=== PATIENT | female | born 1945 | race Hispanic/Latino ===

== ENCOUNTER 2018-02-18 05:08 | Observation (INO) | payer MEDICARE ==
[2018-02-18 06:09] LABS: Absolute Lymphocytes (CBC) 1.8 K/uL (0.7-4.9); Absolute Monocytes 0.5 K/uL (0.1-1.3); Absolute Neutrophil 3.6 K/uL (1.8-8.0); Basophils % 1.1 % (0-1.3); Hematocrit 42.6 % (36.0-45.0); Lymphocytes % 30.3 % (15.3-44.8); MCV 90.1 fL (80-100); MPV 10.7 fL (7.6-11.3); RBC Red Blood Cell Count 4.73 M/uL (3.86-4.86)
[2018-02-18 06:14] LABS: Urine Blood TRACE (NEG); Urine Glucose NEGATIVE (NEG); Urine Protein NEGATIVE (NEG); Urine Specific Gravity 1.025 (1.005-1.030)
[2018-02-18 06:25] LABS: Protime INR 0.98
[2018-02-18] MEDS ORDERED: NA CHLORIDE 0.9% 250 ML ONE (06:34)
[2018-02-18] MEDS ORDERED: NA CHLORIDE 0.9% 1,000 ML ONE (06:48)
--- NOTE | 2018-02-18 06:54 | RAD REPORT ---
EXAM DESCRIPTION: RAD - Chest Single View - 02/18/2018 6:00 am CLINICAL HISTORY: Palpitations, hypertension COMPARISON: June 2017 TECHNIQUE: AP portable chest image was obtained 0549 hours . FINDINGS: No focal lung parenchymal process. No failure or volume overload. Lung markings are simila r to the comparison. Heart and vasculature are normal. No measurable pleural effusion and no pneumoth orax. No gross bony abnormality seen. No acute aortic findings suspected. IMPRESSION: No acute cardiopulmonary process. No significant interval change.
[2018-02-18 07:22] LABS: Bicarbonate 26 mmol/L (21-32); Potassium 3.7 mmol/L (3.5-5.1); Sodium Level 143 mmol/L (136-145)
[2018-02-18 07:23] LABS: ALT/SGPT 22 U/L (12-78); AST/SGOT 13 U/L (15-37); BUN Blood Urea Nitrogen 24 mg/dL (7-18); Glucose Level 127 mg/dL (74-106)
[2018-02-18 07:24] LABS: Albumin 3.9 g/dL (3.4-5.0); Alkaline Phosphatase 106 U/L (45-117); Bilirubin Direct 0.2 mg/dL (0-0.2); Bilirubin Total 0.7 mg/dL (0.2-1.0); Creatine Phosphokinase 61 U/L (26-192); Protein, Total 7.4 g/dL (6.4-8.2)
[2018-02-18 07:25] LABS: CKMB Creatine Kinase MB < 1.0 ng/mL (0.3-3.6); NT PRO-BNP 40 pg/mL (<125)
[2018-02-18 07:33] LABS: Magnesium 2.3 mg/dL (1.8-2.4)
--- NOTE | 2018-02-18 07:51 | RAD REPORT ---
EXAM DESCRIPTION: CT - Head Brain Wo Cont - 02/18/2018 7:12 am CLINICAL HISTORY: Hypertension, headache A preliminary written report was provided at the time of the study, and the report was reviewed prio r to final dictation. COMPARISON: May 2016 TECHNIQUE: Axial 5 mm thick images of the head were obtained without IV contrast. All CT scans are performed using dose optimization technique as appropriate and may include automated exposure control or mA/KV adjustment according to patient size. FINDINGS: No intracranial hemorrhage, mass, edema or shift of mid-line structures. No acute infarcti on changes seen. No abnormal extra-axial fluid collections. Ventricles are normal. Mastoid air cells and visualized portions of the paranasal sinuses are clear. No acute bony findings. No significant change from comparison. IMPRESSION: Negative non-contrast CT head examination.
[2018-02-18] MEDS ORDERED: LORazepam 2 MG/ML VIAL ONE (08:53)
[2018-02-18] MEDS ORDERED: ASPIRIN 81 MG CHEWABLE TABLET ONE (08:53)
[2018-02-18] MEDS ORDERED: FOLIC ACID 5 MG/ML VIAL ONE (08:55)
--- NOTE | 2018-02-18 09:38 | EKG ---
Test Date: 2018-02-18 Test Time: 05:27:32 [employer] Normalizer: [place] MEASUREMENT RESULTS: Intervals: Rate: 114 CO: 150 QRSD: 90 QT: 332 QTc: 457 Ronks: P: 45 CO: 150 QRS: -10 T: 3 INTERPRETIVE STATEMENTS: Sinus tachycardia Possible Anterior infarct, age undetermined Abnormal ECG Compared to ECG 12/18/2016 06:32:59 Sinus rhythm no longer present Myocardial infarct finding still present Electronically Signed On 02-18-18 09:37:59 CDT by Wilton Luis
[2018-02-18] MEDS ORDERED: ONDANSETRON 4 MG/2 ML VIAL IV PRN (09:46)
[2018-02-18] MEDS ORDERED: ACETAMINOPHEN 500 MG TAB PO PRN (09:46)
--- NOTE | 2018-02-18 09:59 | EDPHYS ---
Physician Documentation [facility] Name: Padmaja Easley Age: 72 yrs Sex: Female : 1945 Arrival Date: 02/18/2018 Time: 05:09 Bed 6 Private MD: ED Physician Josr Chao HPI: 02/18 06:43 This 72 yrs old Female presents to ER via Ambulatory with complaints of High snw Blood Pressure. 06:43 The patient has elevated blood pressure and discovered this at home, with a home snw device. Onset: The symptoms/episode began/occurred upon awakening pt states she felt dizzy and thought she should check her blood pressure. Noted to be 170's over 100's. Pt states her norm is 150's over 70's. Pt takes Lisinopril prn but was out so took her 's Terazosin 2mg. Pt states her pulse was "crazy". No noted a. fib. + tachycardia. Continues with dizziness and feels a little left cheek paresthesias.. Modifying factors: The symptoms are aggravated by nothing. Associated signs and symptoms: Pertinent positives: lightheadedness, nausea, Pertinent negatives: chest pain, dyspnea, headache, vomiting. Severity of symptoms: At its worst the blood pressure was moderate, 172 mm Hg. It is unknown whether or not the patient has had similar symptoms in the past. It is unknown whether or not the patient has recently seen a physician. Historical: - Allergies: 05:24 Iodine; bb 05:24 PENICILLINS; bb - Home Meds: 05:24 lisinopril 5 mg oral tab 1 tab as needed [Active]; bb - PMHx: 05:24 Hypertension; bb - PSHx: 05:24 Cholecystectomy; Hysterectomy; Appendectomy; bb - Immunization history:: Adult Immunizations up to date. - Social history:: Smoking status: Patient/guardian denies using tobacco, Patient/guardian denies using alcohol, street drugs. - Ebola Screening: : No symptoms or risks identified at this time. ROS: 06:42 Constitutional: Negative for fever, chills, and weight loss, Eyes: Negative for injury, snw pain, redness, and discharge, ENT: Negative for injury, pain, and discharge, Neck: Negative for injury, pain, and swelling, Cardiovascular: Negative for chest pain, palpitations, and edema, Respiratory: Negative for shortness of breath, cough, wheezing, and pleuritic chest pain, Abdomen/GI: Negative for abdominal pain, nausea, vomiting, diarrhea, and constipation, Back: Negative for injury and pain, : Negative for injury, bleeding, discharge, and swelling, MS/Extremity: Negative for injury and deformity, Skin: Negative for injury, rash, and discoloration. 06:42 Neuro: Positive for dizziness, numbness, of the left cheek. Exam: 06:38 Head/Face: Normocephalic, atraumatic. Eyes: Pupils equal round and reactive to light, snw extra-ocular motions intact. Lids and lashes normal. Conjunctiva and sclera are non-icteric and not injected. Cornea within normal limits. Periorbital areas with no swelling, redness, or edema. ENT: Nares patent. No nasal discharge, no septal abnormalities noted. Tympanic membranes are normal and external auditory canals are clear. Oropharynx with no redness, swelling, or masses, exudates, or evidence of obstruction, uvula midline. Mucous membranes moist. Neck: Trachea midline, no thyromegaly or masses palpated, and no cervical lymphadenopathy. Supple, full range of motion without nuchal rigidity, or vertebral point tenderness. No Meningismus. Chest/axilla: Normal chest wall appearance and motion. Nontender with no deformity. No lesions are appreciated. Respiratory: Lungs have equal breath sounds bilaterally, clear to auscultation and percussion. No rales, rhonchi or wheezes noted. No increased work of breathing, no retractions or nasal flaring. Abdomen/GI: Soft, non-tender, with normal bowel sounds. No distension or tympany. No guarding or rebound. No evidence of tenderness throughout. Back: No spinal tenderness. No costovertebral tenderness. Full range of motion. Skin: Warm, dry with normal turgor. Normal color with no rashes, no lesions, and no evidence of cellulitis. MS/ Extremity: Pulses equal, no cyanosis. Neurovascular intact. Full, normal range of motion. 06:38 Constitutional: The patient appears alert, awake, describes dizziness and some left cheek paresthesias 06:38 Cardiovascular: Rate: tachycardic, Heart sounds: normal. 06:38 Neuro: Orientation: is normal, appropriate for stated age, Mentation: is normal, Memory: is normal, Cranial nerves: Decreased sensation on left cheek, Sensation: is normal, Gait: not tested. seizure activity, is not displayed by the patient. Vital Signs: 05:24 BP 132 / 75; Pulse 122; Resp 16 S; Temp 98.4(TE); Pulse Ox 96% on R/A; Weight 97.52 kg bb (R); Height 5 ft. 4 in. (162.56 cm) (R); Pain 0/10; 06:25 BP 121 / 72; Pulse 115; Resp 18; Pulse Ox 95% on R/A; Pain 0/10; aa1 07:30 BP 126 / 81; Pulse 98 MON; Resp 17; Pulse Ox 94% on R/A; Pain 0/10; sg 08:19 BP 117 / 84; Pulse 95 MON; Resp 17 S; Pulse Ox 95% on R/A; Pain 0/10; sg 09:19 BP 136 / 91; Pulse 104; Resp 17; Pulse Ox 95% on R/A; dh3 10:23 BP 143 / 90; Pulse 102 MON; Resp 17 S; Pulse Ox 96% on R/A; Pain 0/10; sg 11:30 BP 114 / 62; Pulse 101; Resp 16; Pulse Ox 97% on R/A; Pain 0/10; sg 12:00 BP 111 / 68; Pulse 102 MON; Resp 18; Pulse Ox 95% on R/A; Pain 0/10; sg 13:11 BP 123 / 70; Pulse 100 MON; Resp 17; Pulse Ox 98% on R/A; hb 05:24 Body Mass Index 36.90 (97.52 kg, 162.56 cm) NIH Stroke Scale Scores: 06:38 NIHSS Score: 1 snw [place] Coma Score: 06:38 Eye Response: spontaneous(4). Verbal Response: oriented(5). Motor Response: obeys snw commands(6). Total: 15. 08:19 Eye Response: spontaneous(4). Verbal Response: oriented(5). Motor Response: obeys sg commands(6). Total: 15. 10:23 Eye Response: spontaneous(4). Verbal Response: oriented(5). Motor Response: obeys sg commands(6). Total: 15. 12:00 Eye Response: spontaneous(4). Verbal Response: oriented(5). Motor Response: obeys sg commands(6). Total: 15. MDM: 06:09 Patient medically screened. snw 09:08 Data reviewed: vital signs, nurses notes. Data interpreted: Pulse oximetry: on room air snw is 95 %. Interpretation: normal. Counseling: I had a detailed discussion with the patient and/or guardian regarding: the historical points, exam findings, and any diagnostic results supporting the discharge/admit diagnosis, the presence of at least one elevated blood pressure reading (>120/80) during this emergency department visit, lab results, radiology results. ED course: pt continues to feel lightheaded. Pt to have MRI. allergic to iodine so study will be without contrast. 09:19 Refusal of service: The patient/guardian displays adequate decision making capability snw and despite a detailed discussion of alternatives, benefits, risks, and consequences refuses: MRI brain 2nd to claustrophobia, pre-medicated - pt refuses study. 09:56 Physician consultation: Adri Solis MD was called at 09:57, was contacted at 09:57, snw regarding admission, to the telemetry unit. 02/18 05:46 Order name: Basic Metabolic Panel; Complete Time: 07:34 02/18 05:46 Order name: CBC with Diff; Complete Time: 06:25 02/18 05:46 Order name: Ckmb; Complete Time: 07:34 02/18 05:46 Order name: CPK; Complete Time: 07:34 02/18 05:46 Order name: LFT's; Complete Time: 07:34 02/18 05:46 Order name: Magnesium; Complete Time: 07:34 02/18 05:46 Order name: NT PRO-BNP; Complete Time: 07:34 02/18 05:46 Order name: PT-INR; Complete Time: 06:50 aa02/18 05:46 Order name: Ptt, Activated; Complete Time: 06:50 02/18 05:46 Order name: Troponin (emerg Dept Use Only); Complete Time: 07:03 aa02/18 05:46 Order name: XRAY Chest (1 view); Complete Time: 07:03 02/18 05:55 Order name: Urine Dipstick--Ancillary (enter results); Complete Time: 06:25 cc 02/18 06:25 Order name: CT Head Brain wo Cont; Complete Time: 08:04 snw 02/18 11:22 Order name: Glucose, Ancillary Testing; Complete Time: 11:23 EDMS 02/18 05:46 Order name: EKG; Complete Time: 05:46 aa 02/18 05:46 Order name: Cardiac monitoring; Complete Time: 05:47 aa 02/18 05:46 Order name: EKG - Nurse/Tech; Complete Time: 05:47 aa 02/18 05:46 Order name: IV Saline Lock; Complete Time: 05:47 aa1 02/18 07:50 Order name: MRI Stroke Protocol [facility] 02/18 09:50 Order name: CONS Physician Consult [facility] 02/18 09:50 Order name: Heart Healthy [facility] 02/18 10:14 Order name: Diet Heart Healthy; Complete Time: 10:14 bd 02/18 13:12 Order name: MRI; Complete Time: 14:52 EDWA 02/18 05:46 Order name: Labs collected and sent; Complete Time: 05:47 aa 02/18 05:46 Order name: O2 Per Protocol; Complete Time: 05:48 aa 02/18 05:46 Order name: O2 Sat Monitoring; Complete Time: 05:48 [facility] 02/18 05:46 Order name: Urine Dipstick-Ancillary (obtain specimen); Complete Time: 05:48 aa Administered Medications: 06:34 Drug: NS 0.9% 250 ml Route: IV; Rate: bolus; Site: right hand; aa1 06:46 Drug: NS 0.9% 250 ml Route: IV; Rate: bolus; Site: right hand; ea 09:08 Drug: Aspirin 81 mg Route: PO; sg 10:24 Follow up: Response: No adverse reaction sg 09:08 Drug: Ativan 0.25 mg Route: IVP; Site: right hand; sg 10:24 Follow up: Response: No adverse reaction; No change in condition sg 09:10 Drug: foLIC Acid 1 mg Route: IVPB; Site: right hand; sg 09:19 Not Given (Other Intervention Used): foLIC Acid 1 mg PO once sg 12:42 Drug: Ativan 0.5 mg Route: IVP; Site: right hand; sg Point of Care Testing: Blood Glucose: 06:47 Blood Glucose: 118 mg/dL; ea Ranges: Critical Glucose Levels:Adult <50 mg/dl or >400 mg/dl <40 mg/dl or >180 mg/dl Disposition: 02/18/18 09:58 Hospitalization ordered by Adri Solis for Observation. Preliminary diagnosis are Dizziness and giddiness, Tachycardia, unspecified. - Bed requested for Telemetry/MedSurg (observation). - Status is Observation. sv - Condition is Stable. - Problem is new. - Symptoms have improved. UTI on Admission? No NIH Stroke Scale - NIH Stroke Score Date: 02/18/2018 Time: 06:38 Total Score = 1 1a. Level of Consciousness (LOC) - 0(Alert) 1b. Level of Consciousness (LOC) (Year \\T\\ Age) - 0(Both) 1c. LOC Commands (Open \\T\\ Closes Eyes/Coil Shaper) - 0(Both) 2. Best Gaze (Lateral Gaze Paresis) - 0(Normal) 3. Visual Field Loss - 0(No visual loss) 4. Facial Palsy - 0(Normal) 5a. Left Arm: Motor (10-second hold) - 0(No drift) 5b. Right Arm: Motor (10-second hold) - 0(No drift) 6a. Left Leg: Motor (5-second hold - always test supine) - 0(No drift) 6b. Right Leg: Motor (5-second hold - always test supine) - 0(No drift) 7. Limb Ataxia (finger/nose \\T\\ heel/loza - test with eyes open) - 0(Absent) 8. Sensory Loss (pinprick arms/legs/face) - 1(Mild to moderate loss) 9. Best Language: Aphasia (description/naming/reading) - 0(No aphasia) 10. Dysarthria (speech clarity - read or repeat words) - 0(Normal) 11. Extinction and Inattention (visual/tactile/auditory/spatial/personal) - 0(No abnormality) Initials: snw Addendum: 02/21/2018 19:00 Co-signature as Attending Physician, Josr Chao MD. pkl Signatures: Dispatcher [employer] Joie Morales Stephanie, RN RN sv Gay, Steven, RN RN sg Sasha Yang RN RN aa1 Josr Chao MD MD pkKerri Santana, TECHNICAL DIRECTOR-C TECHNICAL DIRECTOR-Csnw Lisa Welsh, RN RN Sandy Carcamo, RN BILLY ea Corrections: (The following items were deleted from the chart) 02/18 10:43 09:58 Hospitalization Ordered by Adri Solis MD for Observation. Preliminary bd diagnosis is Dizziness and giddiness; Tachycardia, unspecified. Bed requested for Telemetry/MedSurg (observation). Status is Observation. Condition is Stable. Problem is new. Symptoms have improved. UTI on Admission? No. snw 13:36 10:43 02/18/2018 09:58 Hospitalization Ordered by Adri Solis MD for sv Observation. Preliminary diagnosis is Dizziness and giddiness; Tachycardia, unspecified. Bed requested for Telemetry/MedSurg (observation). Status is Observation. Condition is Stable. Problem is new. Symptoms have improved. UTI on Admission? No. bd
--- NOTE | 2018-02-18 09:59 | ER ---
Nurse's Notes [facility] Name: Padmaja Easley Age: 72 yrs Sex: Female : 1945 Arrival Date: 02/18/2018 Time: 05:09 Bed 6 Private MD: Diagnosis: Dizziness and giddiness;Tachycardia, unspecified Presentation: 02/18 05:14 Presenting complaint: Patient states: her blood pressure is high 147/100 with HR of 120 bb she takes lisinopril as needed for high blood pressure but she is out so she took one of her 's terazosin. Transition of care: patient was not received from another setting of care. Onset of symptoms was February 18, 2018. Risk Assessment: Do you want to hurt yourself or someone else? Patient reports no desire to harm self or others. Initial Sepsis Screen: Does the patient meet any 2 criteria? No. Patient's initial sepsis screen is negative. Does the patient have a suspected source of infection? No. Patient's initial sepsis screen is negative. Note pt states she was feeling dizzy and she had an elevated heart rate. Care prior to arrival: None. 05:14 Method Of Arrival: Ambulatory bb 05:14 Acuity: KIRSTEN 3 bb Historical: - Allergies: 05:24 Iodine; bb 05:24 PENICILLINS; bb - Home Meds: 05:24 lisinopril 5 mg oral tab 1 tab as needed [Active]; bb - PMHx: 05:24 Hypertension; bb - PSHx: 05:24 Cholecystectomy; Hysterectomy; Appendectomy; bb - Immunization history:: Adult Immunizations up to date. - Social history:: Smoking status: Patient/guardian denies using tobacco, Patient/guardian denies using alcohol, street drugs. - Ebola Screening: : No symptoms or risks identified at this time. Screenin:20 Abuse screen: Denies threats or abuse. Denies injuries from another. Nutritional aa1 screening: No deficits noted. Tuberculosis screening: No symptoms or risk factors identified. Fall Risk None identified. Assessment: 05:20 General: Appears in no apparent distress. comfortable, Behavior is calm, cooperative, aa1 appropriate for age. Pain: Denies pain. Neuro: Level of Consciousness is awake, alert, obeys commands, Oriented to person, place, time, situation, Moves all extremities. Full function Gait is steady, Speech is normal. Cardiovascular: Denies chest pain, diaphoresis, nausea, palpitations, shortness of breath, Heart tones S1 S2 present Rhythm is regular. Respiratory: Airway is patent Respiratory effort is even, unlabored, Respiratory pattern is regular, symmetrical. GI: No signs and/or symptoms were reported involving the gastrointestinal system. : No signs and/or symptoms were reported regarding the genitourinary system. EENT: No signs and/or symptoms were reported regarding the EENT system. Derm: Skin is intact, is healthy with good turgor, Skin is pink, warm \\T\\ dry. Musculoskeletal: Circulation, motion, and sensation intact. Capillary refill < 3 seconds. 06:25 Reassessment: Patient appears in no apparent distress at this time. Patient and/or aa1 family updated on plan of care and expected duration. Pain level reassessed. Patient is alert, oriented x 3, equal unlabored respirations, skin warm/dry/pink. PHYSICIAN ASSISTANT at bedside for pt assessment. 07:30 Reassessment: Patient appears in no apparent distress at this time. Patient and/or sg family updated on plan of care and expected duration. Pain level reassessed. Patient is alert, oriented x 3, equal unlabored respirations, skin warm/dry/pink. Patient states symptoms have not improved. 08:00 Reassessment: pt assisted to the restroom, via wheelchair, pt denies dizziness or sg weakness at this time. pt assisted back to bed, no problems encountered, placed back to monitoring, pt to void x1. 08:45 Reassessment: Patient appears in no apparent distress at this time. pt informed of sg anxiety medication ordered as premed d/t claustrophobia with imaging exams, pt refuses the .25 mg IVP dose, requesting half of that dose IVP. S.Scooter YOGA INSTRUCTOR notified, pt medicated. 09:10 Reassessment: Patient and/or family updated on plan of care and expected duration. Pain sg level reassessed. Patient is alert, oriented x 3, equal unlabored respirations, skin warm/dry/pink. pt reports " dont feel any different after the Ativan IVP medication." pt continues refuse the full dose of 0.25 mg IVP ativan. S.Scooter YOGA INSTRUCTOR notified. 09:15 Reassessment: Patient appears in no apparent distress at this time. MRI Technicians at sg bedside educating pt on procedure, pt refusing MRI d/t claustrophobia, S.Scooter YOGA INSTRUCTOR notified. 10:22 Reassessment: Patient appears in no apparent distress at this time. Patient and/or sg family updated on plan of care and expected duration. Pain level reassessed. Patient is alert, oriented x 3, equal unlabored respirations, skin warm/dry/pink. a diet tray has been ordered, pt and pt family stated understanding, will continue to monitor Patient states feeling better. 10:55 Reassessment: Patient appears in no apparent distress at this time. Patient is alert, sg oriented x 3, equal unlabored respirations, skin warm/dry/pink. pt have MRI performed in the ED prior to admission to room 405, pt and pt family stated understanding, MRI contacted, awaiting turn for MRI at this time, pt stated understanding will continue to monitor Patient states feeling better. 11:55 Reassessment: Patient appears in no apparent distress at this time. Patient and/or sg family updated on plan of care and expected duration. Pain level reassessed. Patient is alert, oriented x 3, equal unlabored respirations, skin warm/dry/pink. Ultrasound at bed side at this time. Vital Signs: 05:24 BP 132 / 75; Pulse 122; Resp 16 S; Temp 98.4(TE); Pulse Ox 96% on R/A; Weight 97.52 kg bb (R); Height 5 ft. 4 in. (162.56 cm) (R); Pain 0/10; 06:25 BP 121 / 72; Pulse 115; Resp 18; Pulse Ox 95% on R/A; Pain 0/10; aa1 07:30 BP 126 / 81; Pulse 98 MON; Resp 17; Pulse Ox 94% on R/A; Pain 0/10; sg 08:19 BP 117 / 84; Pulse 95 MON; Resp 17 S; Pulse Ox 95% on R/A; Pain 0/10; sg 09:19 BP 136 / 91; Pulse 104; Resp 17; Pulse Ox 95% on R/A; dh3 10:23 BP 143 / 90; Pulse 102 MON; Resp 17 S; Pulse Ox 96% on R/A; Pain 0/10; sg 11:30 BP 114 / 62; Pulse 101; Resp 16; Pulse Ox 97% on R/A; Pain 0/10; sg 12:00 BP 111 / 68; Pulse 102 MON; Resp 18; Pulse Ox 95% on R/A; Pain 0/10; sg 13:11 BP 123 / 70; Pulse 100 MON; Resp 17; Pulse Ox 98% on R/A; hb 05:24 Body Mass Index 36.90 (97.52 kg, 162.56 cm) bb [place] Coma Score: 06:38 Eye Response: spontaneous(4). Verbal Response: oriented(5). Motor Response: obeys snw commands(6). Total: 15. 08:19 Eye Response: spontaneous(4). Verbal Response: oriented(5). Motor Response: obeys sg commands(6). Total: 15. 10:23 Eye Response: spontaneous(4). Verbal Response: oriented(5). Motor Response: obeys sg commands(6). Total: 15. 12:00 Eye Response: spontaneous(4). Verbal Response: oriented(5). Motor Response: obeys sg commands(6). Total: 15. NIH Stroke Scale Scores: 06:38 NIHSS Score: 1 snw ED Course: 05:09 Patient arrived in ED. es 05:20 Patient has correct armband on for positive identification. Placed in gown. Bed in low aa1 position. monitor car operator on. Pulse ox on. NIBP on. Warm blanket given. 05:20 EKG done, by ED staff, reviewed by Sasha Yang RN. aa1 05:23 Triage completed. bb 05:24 Arm band placed on Patient placed in an exam room, on a stretcher, on awake overnight monitor, bb on pulse oximetry. EKG completed in triage. Results shown to MD. 05:45 Sasha Yang, RN is Primary Nurse. aa1 05:45 Inserted saline lock: 22 gauge in right hand, using aseptic technique. Blood collected. cc 05:45 Initial lab(s) drawn, by me, sent to lab. cc 05:58 X-ray completed. Portable x-ray completed in exam room. Patient tolerated procedure kw well. 05:59 XRAY Chest (1 view) In Process Unspecified. EDMS 06:08 Kerri Helms FNP-C is PHCP. snw 06:08 Josr Chao MD is Attending Physician. snw 06:[address] via stretcher. kw1 06:55 CT completed. Patient tolerated procedure well. Patient moved back from CT. kw1 06:59 CT Head Brain wo Cont In Process Unspecified. EDMS 07:43 Primary Nurse role handed off by Sasha Yang, BILLY sg 07:43 Carlos Enrique Fine, RN is Primary Nurse. sg 08:27 Awaiting: for MRI at this time. sg 09:57 Adri Solis MD is Hospitalizing Provider. snw 11:31 Awaiting: MRI. sg 12:46 Patient moved to MRI via wheelchair. em2 12:51 MRI completed. Patient tolerated well. em2 12:57 Patient moved back from MRI. sg 12:57 RN/COMPONENT LAB TECH escort patient out of department to MRI. One-on-one care X 15 minutes. sg 13:01 Patient moved back from MRI. em2 13:11 Diet: Patient given a regular meal tray. hb 13:16 No provider procedures requiring assistance completed. Patient admitted, IV remains in sg place. intact, No redness/swelling at site. Administered Medications: 06:34 Drug: NS 0.9% 250 ml Route: IV; Rate: bolus; Site: right hand; aa1 06:46 Drug: NS 0.9% 250 ml Route: IV; Rate: bolus; Site: right hand; ea 09:08 Drug: Aspirin 81 mg Route: PO; sg 10:24 Follow up: Response: No adverse reaction sg 09:08 Drug: Ativan 0.25 mg Route: IVP; Site: right hand; sg 10:24 Follow up: Response: No adverse reaction; No change in condition sg 09:10 Drug: foLIC Acid 1 mg Route: IVPB; Site: right hand; sg 09:19 Not Given (Other Intervention Used): foLIC Acid 1 mg PO once sg 12:42 Drug: Ativan 0.5 mg Route: IVP; Site: right hand; sg Point of Care Testing: Blood Glucose: 06:47 Blood Glucose: 118 mg/dL; ea Ranges: Outcome: 09:58 Decision to Hospitalize by Provider. snw 13:17 Admitted to Tele accompanied by tech, via wheelchair, room 405, with chart, Report sg called to Lindsay CERVANTES 13:17 Condition: stable 13:17 Instructed on the need for admit, safety practices, Demonstrated understanding of instructions. 13:36 Patient left the ED. sv NIH Stroke Scale - NIH Stroke Score Date: 02/18/2018 Time: 06:38 Total Score = 1 1a. Level of Consciousness (LOC) - 0(Alert) 1b. Level of Consciousness (LOC) (Year \\T\\ Age) - 0(Both) 1c. LOC Commands (Open \\T\\ Closes Eyes/Munitions Handler Supervisor) - 0(Both) 2. Best Gaze (Lateral Gaze Paresis) - 0(Normal) 3. Visual Field Loss - 0(No visual loss) 4. Facial Palsy - 0(Normal) 5a. Left Arm: Motor (10-second hold) - 0(No drift) 5b. Right Arm: Motor (10-second hold) - 0(No drift) 6a. Left Leg: Motor (5-second hold - always test supine) - 0(No drift) 6b. Right Leg: Motor (5-second hold - always test supine) - 0(No drift) 7. Limb Ataxia (finger/nose \\T\\ heel/loza - test with eyes open) - 0(Absent) 8. Sensory Loss (pinprick arms/legs/face) - 1(Mild to moderate loss) 9. Best Language: Aphasia (description/naming/reading) - 0(No aphasia) 10. Dysarthria (speech clarity - read or repeat words) - 0(Normal) 11. Extinction and Inattention (visual/tactile/auditory/spatial/personal) - 0(No abnormality) Initials: snw Signatures: Dispatcher [employer] Katy Conroy RN RN sv Gay, Steven, RN RN sg Kern, Alissa, RN RN aa1 Kerri Helms, YOGA INSTRUCTOR-C YOGA INSTRUCTOR-Csnw Hoda Merritt Brenda RN Tabby Trevino Chelsea cc Montes, Enrique 2 Nirmala Downing RN RN hb Herrera, Deanna 3 Sandy Wagoner RN RN ea Wilhelm, Kimberly kw1
[2018-02-18] MEDS ORDERED: NA CHLORIDE 0.9% 1,000 ML IV SCH (10:00)
--- NOTE | 2018-02-18 11:43 | P.HP ---
Certification for Inpatient Patient admitted to: Observation With expected LOS: <2 Midnights Patient will require the following post-hospital care: None Practitioner: I am a practitioner with admitting privileges, knowledge of patient current condition, hospital course, and medical plan of care. Services: Services provided to patient in accordance with Admission requirements found in Title 42 Section 412.3 of the Code of Federal Regulations Patient History Primary Care Provider: Dr Unger Reason for admission: left sided face tingling History of Present Illness: This is a 72-year-old female with no significant past medical history does not take any medication who presented to the ER today complaining of having some paresthesia to the left-sided face. Patient stated that last night when she woke up around 3 o'clock she started having some palpitation and checked her blood pressure which was elevated. She did not have any lisinopril left over from her prior high blood pressure prescription and the she decided to take her stresses in that he takes for blood pressure. After taking her ' s blood pressure medication she started feeling some left-sided facial paresthesia along with some dizziness. The she decided to come to the ER for further workup. Patient states that she has not had anything like this happen to her before and this is the 1st time. In the ER patient continued to have left cheek paresthesia and thus was referred over for admission for possible TIA. Patient MRI of the head was schedule however patient is very claustrophobic and thus was not able to complete it. Patient will be having a repeated MRI of with Ativan to see if that helps her we will follow her after that. Allergies iodine Allergy (Severe, Verified 09/29/17 16:23) Anaphylaxis Penicillins Allergy (Severe, Verified 09/29/17 16:23) Anaphylaxis Home Medications: Cranberry Conc/Ascorbic Acid [Cranberry 12,600 mg Softgel] 1 each PO DAILY 09/29 - Past Medical/Surgical History Diabetic: No -: htn -: gall bladder stone -: appendectomy -: hysterectomy -: cholecystectomy - Family History Mother -: Cancer Notes: varicose veins; bladder tumor Father Notes: diverticulitis; arthritis; Parkinson's - Social History Alcohol use: Yes CD- Drugs: No Caffeine use: Yes Review of Systems General: As per HPI Physical Examination - Physical Exam General: Alert, In no apparent distress, Oriented x3 HEENT: Atraumatic, PERRLA, Mucous membr. moist/pink, EOMI, Sclerae nonicteric Neck: Supple, 2+ carotid pulse no bruit, No LAD, Without JVD or thyroid abnormality Respiratory: Clear to auscultation bilaterally, Normal air movement Cardiovascular: Regular rate/rhythm, Normal S1 S2 Gastrointestinal: Normal bowel sounds, No tenderness Musculoskeletal: No tenderness Integumentary: No rashes Neurological: Normal speech, Normal strength at 5/5 x4 extr, Normal tone Lymphatics: No axilla or inguinal lymphadenopathy - Studies Laboratory Data (last 24 hrs) 02/18/18 05:45: PT 11.6, INR 0.98, APTT 29.9 02/18/18 05:45: WBC 6.1, Hgb 14.2, Hct 42.6, Plt Count 151 L 02/18/18 05:45: Sodium 143, Potassium 3.7, BUN 24 H, Creatinine 0.69, Glucose 127 H, Magnesium 2.3, Total Bilirubin 0.7, AST 13 L, ALT 22, Alkaline Phosphatase 106 Assessment and Plan - Problems (Diagnosis) (1) Facial paresthesia Current Visit: Yes Status: Acute Plan: Pt with Facial Paresthesia after taking her husbands BP meds. Still having Paresthesia on the left cheek in the ED -? TIA vs SE of the medication -Head CT negative -Pending MRI for r.o Stroke -Neurology consulted. -ASA, Lipitor -Lab work ordered -PT and OT consulted. (2) Claustrophobia Current Visit: Yes Status: Chronic Discharge Plan: Home Plan to discharge in: 24 Hours - Advance Directives Does patient have a Living Will: No Does patient have a Durable POA for Healthcare: No - Code Status/Comfort Care Code Status Assessed: Yes Critical Care: No
[2018-02-18] MEDS ORDERED: NALOXONE 0.4 MG/ML VIAL ONE (12:34)
--- NOTE | 2018-02-18 13:10 | RAD REPORT ---
EXAM DESCRIPTION: MRI - Brain Wo Cont - 02/18/2018 12:54 pm CLINICAL HISTORY: Dizziness COMPARISON: February 18, [address] TECHNIQUE: Axial, sagittal, and coronal magnetic images of the brain were obtained. Contrast was not requested FINDINGS: Moderate abnormal signal is present within periventricular, deep and subcortical white mat ter bilaterally. Diffusion-weighted/ADC mapping does not reveal evidence of acute infarction. The ventricles are normal caliber. An extra-axial fluid collection is not present The sinuses and mastoids are clear. IMPRESSION: Moderate abnormal signal within periventricular, deep and subcortical white matter bilat erally probably representing ischemic changes secondary to small vessel disease. No acute intracranial abnormality is seen
[2018-02-18 13:56] VITALS: O2SAT 98
[2018-02-18 15:40] VITALS: BMI 36.8
[2018-02-18 16:30] VITALS: BP 135/64; TEMP 97.1
[2018-02-18 17:41] LABS: RPR Titer ND
[2018-02-18 19:15] LABS: RPR (Rapid Plasma Reagin) NON-REACT (NON-REACT)
--- NOTE | 2018-02-18 20:47 | RAD REPORT ---
EXAM DESCRIPTION: VASCarotid Artery Bilateral02/18/2018 12:44 pm CLINICAL HISTORY: TIA COMPARISON: None FINDINGS: The velocity of the right internal carotid artery equals 77 cm/sec. The right ICA/CCA rati o 1.1 The velocity of the left internal carotid artery equals 82 cm/sec. The left ICA/CCA ratio 1.2 Mild plaque is present within the carotid arteries. The vertebral arteries demonstrate antegrade flow IMPRESSION: Mild plaque within the carotid arteries without evidence of a hemodynamically significan t stenosis
[2018-02-18] MEDS ORDERED: ATORVASTATIN 40 MG TAB PO SCH (21:00)
--- NOTE | 2018-02-18 21:54 | CON ---
Consultation called because of transient ischemic attack. History Of Present Illness: Ms. Easley is a 72-year-old patient with benign paroxysmal positional vertigo and reported history of hypertension, who said she woke up this morning around 3 and noted so me vertigo along with tingling in the left jaw and her blood pressure was elevated to around 150/100 and a pulses of about 100 and around 110. Actually, she intermittently takes lisinopril for own bloo d pressure, but says her blood pressure is in the 115-120 systolic. She at that time took some of he r 's blood pressure medications terazosin and at that point began to feel chest pain, abdomina l pain, nausea along with worsening left-sided facial paresthesias, dizziness and came to [facility] Emergency Room for evaluation. Her head CT scan showed no acute ischemic or hemorrhagic brian nge. Her brain MRI was unremarkable. No evidence of acute stroke and her electrocardiogram showed s inus tachycardia of 114 with a possible anterior infarct. She had carotid Dopplers which are pending . Chest x-ray showed no evidence of any acute cardiopulmonary processes. Her blood work shows essen tially unremarkable, complete blood count with differential, normal coagulation panel, and chemistrie s remarkable for a slightly elevated glucose of 127, BUN slightly elevated to 24, chloride slightly e levated to 109, but liver function studies were normal. Urinalysis showed a trace of blood, otherwis e unremarkable. Since coming to the hospital, her symptoms have resolved. She did receive some IV fluids. She did s ay at home she was not taking an aspirin daily. She did receive aspirin along with folic acid in the Emergency Room and fluids, and has had something for nausea. Past Medical History: Includes hypertension. Surgical History: Gallstones with appendectomy, hysterectomy, and cholecystectomy. Family History: Cancer in mother and varicose veins in mother and in father with diverticulitis, art hritis, Parkinson disease. Social History: Occasional alcohol and caffeine use. No tobacco use. Review of Systems: No recent fevers, chills, nausea, vomiting, myalgias, arthralgias, headache, weight change, or rash. No psychiatric complaints. No gastrointestinal or genitourinary issues. Allergies: IODINE AND PENICILLIN. Medications: At home, she has used cranberry and ascorbic acid pills, soft gels daily. Physical Examination: Vital Signs: Blood pressure 135/64, pulse 87, respiratory rate 18, temperature 97.1, oxygen saturati on 93%. Weight 215 pounds. Height 5 feet 4 inches, BMI 36.9. General: Ms. Easley is standing in her room. She was at her sink. HEENT: She is normocephalic, atraumatic. Sclerae anicteric. Oropharynx is pink and moist. Neck: Supple. Chest: Clear. Heart: Regular. Extremities: Show no edema, cyanosis, or clubbing. Neurologic: She is alert and oriented to person, place, time, and situation. She has no expressive or receptive aphasias. Cranial nerves 2 through 12 are intact by examination. Motor examination int act in upper and lower extremities, 5/5 strength proximally and distally. Sensory exam shows mild st ocking-glove light touch temperature loss in upper and lower extremities. Reflex is 1+ in upper and lower extremities. Coordination intact in upper and lower extremities. Gait normal stance right arm swing. Assessment: Ms. Easley is a 72-year-old patient with a possible transient ischemic attack. She di d take alpha-brigido which potentially aggravated her symptoms. She does not take aspirin on a regul ar basis, but does have some minimal risk factors for stroke. Plan: 1.Aspirin 81 mg at least every third day. May take depending on bruising, full regimen of 81 mg kobe ly. 2.The patient should have a lipid panel to determine her risk for a potential need for statin to low er LDL to less than 70. 3.The patient was told to carefully her monitor blood pressure and follow up with primary care physi mary for medication adjustments accordingly. 4.After discharge to home, which is okay for now. The patient can discharge now. She should follow up with Dr. Panda in clinic in 1 month. 5.Folic acid 1 mg daily. 6.The patient was instructed on importance of hydration with at least 80 ounces of water daily and d aily exercise of at least 30 minutes with brisk intensity such that she is sweating, but can carry a winded conversation. 7.Please note that the patient's stroke scale is 0. LB/MODL Voice ID: [id number] Report ID: [id number]
[2018-02-19] MEDS ORDERED: ASPIRIN 81 MG CHEWABLE TABLET PO SCH (09:00)
== END 2018-02-18 19:02 | disposition home or self-care (01) ==
LOC: ER 05:08 → ERHOLD 09:48 → 4TH 13:16
PROVIDERS: ADMIT Family Medicine; ATTEND Family Medicine
DX: R20.2 Paresthesia of skin (principal); H81.10 Benign paroxysmal vertigo, unspecified ear; I10 Essential (primary) hypertension; R51 Headache; F40.240 Claustrophobia; R00.0 Tachycardia, unspecified; R29.701 NIHSS score 1; R07.9 Chest pain, unspecified; R10.9 Unspecified abdominal pain; R11.0 Nausea; Z88.0 Allergy status to penicillin; Z91.041 Radiographic dye allergy status
CPT/HCPCS: 36415; 70450; 70551; 71045; 80048; 80061; 80076; 81003; 82550; 82553; 82607; 82962; 83735; 83880; 84484; 85025; 85610; 85652; 85730; 86592; 93005; 93880; G0378 ×2; J7030 ×2; 96374; 96375; 99285; J2310

== ENCOUNTER 2020-03-27 16:52 | Inpatient (IN) | payer MEDICARE, OTHER ==
--- OUTSIDE RECORDS SUMMARY | 2020-03-27 16:54 | XMS REPORT ---
:1945 Author Organization eClinicalWorks Care Team Providers Name Role Phone Unger, Na Provider Role Unavailable Allergies, Adverse Reactions, Alerts Substance Reaction Event Type PCN Info Not Available Drug Allergy Iodine Info Not Available Drug Allergy Aspirin jd Drug Allergy Problems Problem Type Condition Code Onset Dates Condition Statu s Assessment Acute recurrent maxillary sinusitis J01.01 Active Problem Fibrocystic breast disease N60.19 A ctive Problem Female bladder prolapse, acquired N81.10 Active Problem Degenerative cervical disc M50.30 A ctive Problem Idiopathic peripheral neuropathy G60.9 Active Problem Carotid artery occlusion I65.29 Act yvette Problem Chronic gastroesophageal reflux K21.9 Active disease Problem Osteoarthritis of knee, unspecified M17.10 Active laterality, unspecified osteoarthritis type Problem Degeneration of lumbosacral M51.37 Active intervertebral disc Problem Hiatal hernia K44.9 Active Problem Vertigo R42 Active Problem Osteoarthritis of multiple joints M15.9 Active Problem Anxiety F41.9 Active Problem Acute otitis externa of both ears, H60.503 Active unspecified type Problem Benign paroxysmal positional H81.13 Active vertigo, bilateral Problem Osteoarthritis of spine with M47.22 Active radiculopathy, cervical region Problem Varicose veins of bilateral lower I83.813 Active extremities with pain Problem Hyperglycemia R73.9 Active Problem Obese E66.9 Active Problem Seasonal allergic rhinitis, J30.2 Active unspecified trigger Problem Other cervical disc degeneration, M50.30 Active unspecified cervical region Problem Essential hypertension I10 Activ e Problem BMI 34.0-34.9,adult Z68.34 Active Problem Fatty liver K76.0 Active Problem Tachycardia R00.0 Active Problem Hyperlipidemia, mixed E78.2 Active Assessment Seasonal allergic rhinitis, J30.2 Active unspecified trigger Problem Varicose vein I86.8 Active Problem Benign essential HTN I10 Active Problem Cholelithiases K80.20 Active Problem Hearing loss H91.90 Active Problem Plantar wart B07.0 Active Problem Hyperbilirubinemia E80.6 Active Problem Pulmonary nodule R91.1 Active Medications Medication Code Code Instructions Start End Status Dosage System Date Date Bactrim DS [facility] 42444737950 800-160 MG February Active 1 tabl et Orally Twice a 09, 16, day 2019 2019 Lisinopril [facility] 86577320472 5 MG Orally Active 1 tab let Once a day Lisinopril [facility] 60639270072 5 MG Orally Active 1 tab let Once a day Tobramycin [facility] 25314426056 0.3 % Active 1 drop in to Ophthalmic affected eye every 4 hrs Fish Oil [facility] 65091231498 1000 MG Orally Active 1 ca psule Once a day Aspirin Adult [facility] 23610701864 81 MG Orally Active 1 tablet Low Dose Once a day Vitamin D3 [facility] 28185-09790 Active not defin ed Flonase Allergy [facility] 85522171388 50 MCG/ACT Sept Active 2 sprays to Relief Nasally Once a 17, each nost ril 2017 Bactrim DS [facility] 49314779357 800-160 MG Active 1 tabl et Orally Twice a day Triamcinolone [facility] 48651436041 0.5 % Active 1 appl ication Acetonide Externally to affected Twice a day area Allergy Relief [facility] 24299720182 10 MG Orally Active 1 tablet Once a day Results No Known Results Summary Purpose eClinicalWorks Submission
--- OUTSIDE RECORDS SUMMARY | 2020-03-27 16:54 | XMS REPORT ---
:1945 Author Organization eClinicalWorks Care Team Providers Name Role Phone Unger, Na Provider Role Unavailable Allergies No Known Allergies Problems Problem Type Condition Code Onset Dates Condition Statu s Assessment Cough R05 Active Problem Fibrocystic breast disease N60.19 A [...] liver K76.0 Active Problem Tachycardia R00.0 Active Assessment Nonintractable headache, R51 Act yvette unspecified chronicity pattern, unspecified headache type Problem Hyperlipidemia, mixed E78.2 Active Assessment Nausea R11.0 Active Problem Varicose vein I86.8 Active Assessment Seasonal allergic rhinitis, J30.2 Active unspecified trigger Problem Benign essential HTN I10 Active Assessment Contact with and (suspected) Z20.828 Active exposure to other viral communicable diseases Problem Cholelithiases K80.20 Active Problem Hearing loss H91.90 Active Problem Plantar wart B07.0 Active Problem Hyperbilirubinemia E80.6 Active Problem Pulmonary nodule R91.1 Active Medications Medication Code Code Instructions Start End Status Dosage System Date Date Aspirin Adult [facility] 07250985620 81 MG Orally Active 1 tablet Low Dose Once a day Allergy Relief [facility] 80999982686 10 MG Orally Active 1 tablet Once a day Vitamin D3 [facility] 92612-87541 Active not defin ed Bactrim DS [facility] 77421511781 800-160 MG Active 1 tabl et Orally Twice a day Lisinopril [facility] 68318462715 5 MG Orally Active 1 tab let Once a day Fish Oil [facility] 20470751193 1000 MG Orally Active 1 ca psule Once a day Lisinopril [facility] 53330000610 5 MG Orally Active 1 tab let Once a day Flonase Allergy [facility] 42214866502 50 MCG/ACT Sept Active 2 sprays to Relief Nasally Once a 17, each nost 2017 Tobramycin [facility] 98017524580 0.3 % Active 1 drop in to Ophthalmic affected eye every 4 hrs Triamcinolone [facility] 21437651691 0.5 % Active 1 appl ication Acetonide Externally to affected Twice a day area Results Name Result Date Reference Range Unit Abnormali ty Flag Novel Coronavirus (COVID-19), JUDY ----SARS-CoV-2, JUDY Not Detected [id number] Not Detected Inpatient Summary Purpose eClinicalWorks Submission
--- OUTSIDE RECORDS SUMMARY | 2020-03-27 16:54 | XMS REPORT | Continuity of Care Document ---
:1945 Author Organization [facility] t Address [address] [place] [address] Care Team Providers Name Role Phone Unavailable Unavailable Unavailable Problems Condition Condition Condition Status Onset Resolution Last Treating Co mments Source Name Details Category Date Date Treatment Clinician Date Vertigo Vertigo Problem [facility] Anxiety Anxiety Problem [facility] Hyperlipid Hyperlipid Problem Active [facility] em[facility], emia, [facility] mixed mixed [facility] Benign Benign Problem Active [facility] essential essential [facility] - HTN HTN [facility] Varicose Varicose Problem [facility] Hyperbilir Hyperbilir Problem Active [facility] ubinemia ubinemia [facility] Hearing Hearing Problem Active [facility] loss loss [facility] Pulmonary Pulmonary Problem Active [facility] nodule nodule [facility] 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 [place] - hageal hageal Memoria reflux reflux l disease disease Outpati ent Clinics 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 [facility] - lumbosacra lumbosacra Me moria l l l interverte interverte Ou tpati bral disc bral disc ent Clinics Female Female Problem Active [facility] bladder bladder [facility] prolapse, prolapse, Rickey cory acquired acquired l Outpati ent Clinics Hiatal Hiatal Problem Active [facility] hernia hernia [facility] Plantar Plantar Problem Active [facility] wart wart [facility] Hyperglyce Hyperglyce Problem Active [facility] Obese Obese Problem Active [facility] Fibrocysti Fibrocysti Problem Active [facility] c breast c breast [facility] disease disease [facility] l [facility]i ent Clinics Other Other Problem Active [facility] cervical cervical [facility] - disc disc Memoria degenerati degenerati l on, on, Outpati unspecifie unspecifie en t d cervical d cervical Cl inics region region Osteoarthr Osteoarthr Problem Active [facility] itis of itis of [facility] - knee, knee, Memoria unspecifie unspecifie l d d Outpati laterality laterality en t , , Clinics unspecifie unspecifie d d osteoarthr osteoarthr itis type itis type Carotid Carotid Problem Active [facility] artery artery [facility] occlusion occlusion Rickey cory l Outpati ent Clinics Cholelithi Cholelithi Problem Active [facility] ases ases [facility] 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 Me moria l Outpati ent Clinics Osteoarthr Osteoarthr Problem Active [facility] itis of itis of [facility] - multiple multiple Memori a joints joints l Outpati ent Clinics Tachycardi Tachycardi Problem Active [facility] Acute Acute Problem Active [facility] otitis otitis [facility] - externa of externa of Me moria both ears, both ears, l unspecifie unspecifie Ou tpati d type d type ent Clinics Benign Benign Problem Active [facility] paroxysmal paroxysmal [place] - positional positional Me moria vertigo, vertigo, l bilateral bilateral Outp ati ent Clinics BMI BMI Problem Active [facility] 34.0-34.9, 34.0-34.9, [place] - [facility] Fatty Fatty Problem Active [facility] liver liver [facility] Varicose Varicose Problem Active [facility] veins of veins of [facility] - bilateral bilateral Rickey cory lower lower l extremitie extremitie Ou tpati s with s with ent pain pain Clinics Osteoarthr Osteoarthr Problem Active [facility] itis of itis of [facility] - spine with spine with Me moria radiculopa radiculopa l thy, thy, Outpati cervical cervical ent region region Clinics Seasonal Seasonal Problem Active [facility] t allergic allergic [facility] - rhinitis, rhinitis, Rickey cory unspecifie unspecifie l d trigger d trigger Outp at ent Clinics Allergies, Adverse Reactions, Alerts Allergy Allergy Status Severity Reaction(s) Onset Inactive Treating Comm ents Source Name Type Date Date Clinician PCN Adverse Active Info Not [facility] Reaction [facility] Iodine Adverse Active Info Not [facility] Reaction [facility] Aspirin Adverse Active jd [facility] Reaction [facility] Clinics Medications Ordered Filled Start Stop Current Ordering Indication Dosage Frequency Signature Comments Components Source Medication Medication Date Date Medication? Clinician (SIG) Name Name Adriana Wright 2019-0 2020- Yes Na Unger [address] [facility] [facility] n n 8- 08- on the [facility] - 00:00: 00:00 first day, Memori a 00 :00 then 1 l tablet Outpati daily for ent 4 days Clinics Bactrim DS Bactrim DS 2019-0 2020- Yes Na Unger [address] [facility] 02-0916 [facility] - 00:[facility]: 00:00 Memoria 00 :00 l [facility] ent Clinics Flonase Flonase Yes Na Unger [address] [facility] Allergy Allergy 9-17 to each [facility] - Relief Relief 00:00: nostril [facility] Tobramycin Tobramycin Yes Na Unger [address] - affected Memoria eye l [facility] ent Clinics Fish Oil Fish Oil Yes Na Unger [address] [facility] Lisinopril Lisinopril Yes Na Unger [address] [facility] Aspirin Aspirin Yes Na Unger [address] Adult Low Adult Low [facility] - Dose Dose [facility] Triamcinolo Triamcinolo Yes Na Unger [address] [facility] ne ne applicatio [facility] - Acetonide Acetonide n to Memor ia affected l area [facility] Lisinopril Lisinopril Yes Na Unger [address] [facility] Vitamin D3 Vitamin D3 Yes Na Unger not [facility] defined [facility] ent Clinics Allergy Allergy Yes Na Unger [address] Relief Relief [facility] Procedures This patient has no known procedures. Encounters Start End Encounter Admission Attending Care Care Encounter Source Date/Time Date/Time Type Type Clinicians Facility Department ID 2020-03-23 2020-03-23 [facility] [id number] [facility] 08:36:00 08:36:00 [facility] Medicine Outpati ent Clinics 2020-03-19 2020-03-19 [facility] [id number] 13:34:00 13:34:00 t [facility] Medicine Outpati ent Clinics 2020-03-17 2020-03-17 [facility] [id number] 11:00:00 11:00:00 t [facility] Medicine Outpati ent Clinics 2020-03-17 2020-03-17 [facility] [id number] 08:42:00 08:42:00 [facility] Medicine Outpati ent Clinics 2020-02-10 2020-02-10 [facility] [id number] [facility] 13:00:00 13:00:00 [facility] Medicine Outpati ent Clinics 2020-02-10 2020-02-10 [facility] [id number] 08:33:00 08:33:00 t [facility] Medicine Outpati ent Clinics 2019-10-29 2019-10-29 [facility] [id number] 15:20:00 15:20:00 [facility] [employer] [facility] Medicine Outpati ent Clinics 2019-10-29 2019-10-29 [facility] [id number] 14:29:00 14:29:00 [facility] Medicine Outpati ent Clinics 2019-10-13 2019-10-13 [facility] [id number] [facility] 13:20:00 13:20:00 [facility] Medicine Outpati ent Clinics 2019-10-13 2019-10-13 [facility] [id number] 08:37:00 08:37:00 t [employer] [facility] - [facility] Medicine l Medicine Outpati ent Clinics 2019-08-09 2019-08-09 [facility] [id number] 09:12:00 09:12:00 t [employer] [employer] s - Drive [facility] Medicine l Medicine Outpati ent Clinics 2019-06-28 2019-06-28 [facility] [id number] 08:40:00 08:40:00 t [employer] [employer] s - Drive [facility] Medicine l Medicine Outpati ent Clinics 2019-06-21 2019-06-21 [facility] [id number] [facility] 08:40:00 08:40:00 t [employer] s - Drive [facility] Medicine l Medicine Outpati ent Clinics 2019-04-16 2019-04-16 [facility] [id number] 08:00:00 08:00:00 t [employer] [employer] s - Drive [facility] Medicine l Medicine Outpati ent Clinics 2019-03-26 2019-03-26 [facility] [id number] 08:00:00 08:00:00 t [employer] - [employer] [facility] Medicine l Medicine Outpati ent Clinics 2019-03-08 2019-03-08 [facility] [id number] [facility] 12[facility]31:00 12:31:00 t [employer] s - [employer] [facility] Medicine l Medicine Outpati ent Clinics 2019-03-03 2019-03-03 [facility] [id number] 09:38:00 09:38:00 t [employer] [employer] s - Drive [facility] Medicine l Medicine Outpati ent Clinics 2019-02-16 2019-02-16 [facility] [id number] 13:00:00 13:00:00 t [employer] [employer] s - Drive [facility] Medicine l Medicine Outpati ent Clinics 2019-02-10 2019-02-10 Outpatient [facility] [address] [place] [id number] 12:15:00 12:15:00 [facility] 2018-11-02 2018-11-02 [facility] [id number] 15:26:00 15:26:00 t [employer] [employer] s - [facility] Medicine Outpati ent Clinics 2018-10-15 2018-10-15 [facility] [id number] [facility] 09:00:00 09:00:00 t [employer]on [employer] s - Drive [facility] Medicine Outpati ent Clinics 2018-10-06 2018-10-06 [facility] [id number] 09:17:00 09:17:00 t [employer] [employer] s - Drive [facility] Medicine Outpati ent Clinics 2018-10-06 2018-10-06 [facility] [id number] [facility] 09:09:00 09:09:00 t [employer] [employer] s - Drive [facility] Medicine Outpati ent Clinics 2018-08-10 2018-08-10 [facility] [id number] 15:04:00 15:04:00 t [employer] [employer] s - Drive [facility] Medicine Outpati ent Clinics 2018-07-17 2018-07-17 [facility] [id number] [facility] 11:15:00 11:15:00 t [employer] [employer] s - Drive [facility] Medicine Outpati ent Clinics 2018-04-20 2018-04-20 [facility] [id number] 14:45:00 14:45:00 t [employer]on [employer] - [employer] [facility] Medicine Outpati ent Clinics 2018-02-20 2018-02-20 [facility] [id number] 10:30:00 10:30:00 t [place] [employer] s - Drive [facility] Medicine Outpati ent Clinics Results This patient has no known results.
--- OUTSIDE RECORDS SUMMARY | 2020-03-27 16:54 | XMS REPORT ---
:1945 Author Organization eClinicalWorks Care Team Providers Name Role Phone Unger, Na Provider Role Unavailable Allergies No Known Allergies Problems Problem Type Condition Code Onset Dates Condition Statu s Problem Fibrocystic breast disease N60.19 A ctive [...] R00.0 Active Problem Hyperlipidemia, mixed E78.2 Active Problem Varicose vein I86.8 Active Problem Benign essential HTN I10 Active Problem Cholelithiases K80.20 Active Problem Hearing loss H91.90 Active Problem Plantar wart B07.0 Active Problem Hyperbilirubinemia E80.6 Active Problem Pulmonary nodule R91.1 Active Medications No Known Medications Results No Known Results Summary Purpose eClinicalWorks Submission
--- OUTSIDE RECORDS SUMMARY | 2020-03-27 16:55 | XMS REPORT ---
[...] Start End Status Dosage System Date Date Lisinopril [facility] 00172316459 5 MG Orally Active 1 tab let Once a day Vitamin D3 [facility] 20759-90365 Active not defin ed Lisinopril [facility] 81921569493 5 MG Orally Active 1 tab let Once a day Bactrim DS [facility] 67098071839 800-160 MG Active 1 tabl et Orally Twice a day Fish Oil [facility] 56875243856 1000 MG Orally Active 1 ca psule Once a day Allergy Relief [facility] 21705061731 10 MG Orally Active 1 tablet Once a day Flonase Allergy [facility] 30919325127 50 MCG/ACT Sept Active 2 sprays to Relief Nasally Once a 17, each nost ril 2017 Azithromycin [facility] 09635180652 250 MG Orally Mar 23Mar Active 2 tablet on Once a day 2019, the first 2019, then 1 tablet daily for 4 days Tobramycin [facility] 68505751329 0.3 % Active 1 drop in to Ophthalmic affected eye every 4 hrs Triamcinolone [facility] 85275051890 0.5 % Active 1 appl ication Acetonide Externally to affected Twice a day area Aspirin Adult [facility] 65530850787 81 MG Orally Active 1 tablet Low Dose Once a day Results No Known Results Summary Purpose eClinicalWorks Submission
[2020-03-27] MEDS ORDERED: NA CHLORIDE 0.9% 500 ML ONE (19:32)
[2020-03-27] MEDS ORDERED: ONDANSETRON 4 MG/2 ML VIAL ONE (19:32)
[2020-03-27 19:50] LABS: Absolute Lymphocytes (CBC) 0.7 K/uL (0.7-4.9); Basophils % 0.5 % (0-1.3); Hematocrit 41.1 % (36.0-45.0); Lymphocytes % 11.7 % (15.3-44.8); MPV 11.6 fL (7.6-11.3); RBC Red Blood Cell Count 4.66 M/uL (3.86-4.86)
[2020-03-27] MEDS ORDERED: ACETAMINOPHEN 500 MG TAB ONE (19:56)
[2020-03-27 20:11] LABS: Albumin 3.7 g/dL (3.4-5.0); Bilirubin Direct 0.3 mg/dL (0-0.2); Potassium 3.5 mmol/L (3.5-5.1); Protein, Total 7.8 g/dL (6.4-8.2)
--- NOTE | 2020-03-27 20:52 | ER ---
Nurse's Notes [facility] Name: Padmaja Easley Age: 74 yrs Sex: Female : 1945 Arrival Date: 03/27/2020 Time: 16:56 Bed 7 Private MD: Diagnosis: Coronavirus infection, unspecified;Hypoxia;Urinary Tract Infection Presentation: 03/27 17:10 Chief complaint: Patient states: States she is covid positive for 10 days. + SCHWARTZ, ll1 nausea, diarrhea for 10 days. + generalized weakness. Coronavirus screen: Client denies travel out of the [place] in the last 14 days. cough unrelated to allergies, diarrhea, difficulty breathing, fatigue, fever, Client presents with at least one sign or symptom that may indicate coronavirus-19. Standard/surgical mask placed on the client. Ebola Screen: Patient denies travel to an Ebola-affected area in the 21 days before illness onset. Initial Sepsis Screen: Does the patient meet any 2 criteria? HR > 90 bpm. Risk Assessment: Do you want to hurt yourself or someone else? Patient reports no desire to harm self or others. Onset of symptoms was March 17, 2020. 17:10 Method Of Arrival: Ambulatory ll1 17:10 Acuity: KIRSTEN 3 ll1 20:37 Initial Sepsis Screen: Does the patient have a suspected source of infection? Yes: lp1 Other: COVID positive. Historical: - Allergies: 17:13 PENICILLINS; ll1 17:13 Iodine; ll1 - PMHx: 17:13 Hypertension; ll1 - PSHx: 17:13 Cholecystectomy; Hysterectomy; Appendectomy; ll1 - Immunization history:: Flu vaccine is not up to date. - Social history:: Smoking status: Patient denies any tobacco usage or history of. Patient/guardian denies using alcohol, street drugs. Screenin:26 Abuse screen: Denies threats or abuse. Denies injuries from another. Nutritional ph screening: No deficits noted. Tuberculosis screening: No symptoms or risk factors identified. Fall Risk None identified. Assessment: 19:30 General: Appears in no apparent distress. Behavior is calm, cooperative. Pain: Denies lp1 pain. Neuro: Level of Consciousness is awake, alert, obeys commands, Oriented to person, place, time, situation. Cardiovascular: Patient's skin is warm and dry. Respiratory: Airway is patent Respiratory effort is even. GI: Abdomen is non-distended, Reports diarrhea, nausea. : No signs and/or symptoms were reported regarding the genitourinary system. EENT: No signs and/or symptoms were reported regarding the EENT system. Derm: Skin is pink, warm \T\ dry. Musculoskeletal: No deficits noted. 19:43 Reassessment: Verbal order per Provider for Tylenol 500mg PO. lp1 20:00 Reassessment: Patient noted to be 85% on RA while laying in bed; Patient denies any lp1 shortness of breath; Patient sat up at 90 degrees, taking deep breaths, coughing induced with deep breaths per patient; O2 at 91% on RA after deep breathing; provider notified. 20:20 Reassessment: Patient ambulated in hallway; denies shortness of breath, but states some lp1 light headedness; O2 at 87% on RA while ambulating. Vital Signs: 17:10 BP 114 / 60; Pulse 99; Resp 18; Temp 99.6; Pulse Ox 94% on R/A; Pain 5/10; ll1 19:42 BP 118 / 62; Pulse 100; Resp 20; Temp 100.2(O); Pulse Ox 91% on R/A; lp1 20:00 Pulse Ox 85% on R/A; lp1 21:00 BP 114 / 83; Pulse 90; Resp 20; Pulse Ox 94% on 2 lpm NC; lp1 21:30 Temp 98.8(O); Weight 95.25 kg (R); lp1 21:30 BP 113 / 78; Pulse 88; Resp 18; Pulse Ox 95% on 2 lpm NC; lp1 22:30 BP 107 / 66; Pulse 84; Resp 18; Pulse Ox 94% on 2 lpm NC; lp1 23:23 BP 107 / 56; Pulse 82; Resp 18; Pulse Ox 95% on 2 lpm NC; lp1 ED Course: 16:56 Patient arrived in ED. mr 17:12 Triage completed. ll1 17:14 Arm band placed on. ll1 18:11 Alexander Tinoco PA is PHCP. [place] 18:11 Sung Stein MD is Attending Physician. [place] 18:26 Jeannie Harkins, BILLY is Primary Nurse. ph 18:27 Patient has correct armband on for positive identification. Bed in low position. Call ph light in reach. Side rails up X 1. Pulse ox on. NIBP on. 19:30 Inserted saline lock: 22 gauge in right antecubital area, using aseptic technique. lp1 Blood collected. 20:51 Davi Frausto MD is Hospitalizing Provider. [place] 21:44 No provider procedures requiring assistance completed. Patient admitted, IV remains in lp1 place. Administered Medications: 19:30 Drug: NS 0.9% 500 ml Route: IV; Rate: bolus; Site: right antecubital; lp1 20:00 Follow up: IV Status: Completed infusion; IV Intake: 500ml lp1 19:30 Drug: Zofran (Ondansetron) 4 mg Route: IVP; Site: right antecubital; lp1 20:30 Follow up: Response: Nausea is decreased lp1 19:44 Drug: Tylenol 500 mg Route: PO; lp1 21:43 Follow up: Response: Temperature is decreased lp1 21:20 Drug: Decadron - Dexamethasone 10 mg Route: IVP; Site: right antecubital; lp1 23:20 Follow up: Response: No adverse reaction lp1 21:42 Drug: LevaQUIN 750 mg Volume: 150 ml; Route: IVPB; Infused Over: 90 mins; Site: right lp1 antecubital; 23:20 Follow up: IV Status: Completed infusion; IV Intake: 150ml lp1 Intake: 20:00 IV: 500ml; Total: 500ml. lp1 23:20 IV: 150ml; Total: 650ml. 1 Outcome: 20:52 Decision to Hospitalize by Provider. [place] 21:44 Condition: stable lp1 21:44 Instructed on the need for admit. 23:57 Admitted to ICU via wheelchair, room 7, with oxygen, with chart, Report called to lp1 BILLY Joshua 03/28 00:11 Patient left the ED. [facility] Signatures: Alexander Tinoco PA PA jmm Rivera, Mary mr RobleroKeeley, RN RN 1 Jeannie Harkins RN RN Tess Priest RN RN [facility]
--- NOTE | 2020-03-27 20:52 | EDPHYS ---
Physician Documentation [facility] Name: Padmaja Easley Age: 74 yrs Sex: Female : 1945 Arrival Date: 03/27/2020 Time: 16:56 Bed 7 Private MD: ED Physician Sung Stein HPI: 03/27 18:22 This 74 yrs old Female presents to ER via Ambulatory with complaints of jmm COVID+, Cough, Diarrhea. 18:22 The patient or guardian reports cough. Onset: The symptoms/episode began/occurred jmm gradually, 10 day(s) ago. Modifying factors: The symptoms are alleviated by nothing. the symptoms are aggravated by nothing. Associated signs and symptoms: Pertinent positives: diarrhea, nausea. The patient has not experienced similar symptoms in the past. patient was recently diagnosed with covid 10 days prior. Concerned she may be dehydrated. . Historical: - Allergies: 17:13 PENICILLINS; ll1 17:13 Iodine; ll1 - PMHx: 17:13 Hypertension; ll1 - PSHx: 17:13 Cholecystectomy; Hysterectomy; Appendectomy; ll1 - Immunization history:: Flu vaccine is not up to date. - Social history:: Smoking status: Patient denies any tobacco usage or history of. Patient/guardian denies using alcohol, street drugs. ROS: 18:22 Constitutional: Positive for fever. jmm 18:22 Respiratory: Positive for cough. 18:22 Abdomen/GI: Positive for diarrhea. 18:22 All other systems are negative. Exam: 18:22 Constitutional: This is a well developed, well nourished patient who is awake, alert, jmm and in no acute distress. Head/Face: atraumatic. Eyes: EOMI, no conjunctival erythema appreciated ENT: Moist Mucus Membranes Neck: Trachea midline, Supple Chest/axilla: Normal chest wall appearance and motion. Cardiovascular: Regular rate and rhythm. No edema appreciated Respiratory: Normal respirations, no respiratory distress appreciated Abdomen/GI: Non distended, soft Back: Normal ROM Skin: General appearance color normal MS/ Extremity: Moves all extremities, no obvious deformities appreciated, no edema noted to the lower extremities Neuro: Awake and alert, normal gait Psych: Behavior is normal, Mood is normal, Patient is cooperative and pleasant Vital Signs: 17:10 BP 114 / 60; Pulse 99; Resp 18; Temp 99.6; Pulse Ox 94% on R/A; Pain 5/10; ll1 19:42 BP 118 / 62; Pulse 100; Resp 20; Temp 100.2(O); Pulse Ox 91% on R/A; lp1 20:00 Pulse Ox 85% on R/A; lp1 21:00 BP 114 / 83; Pulse 90; Resp 20; Pulse Ox 94% on 2 lpm NC; lp1 21:30 Temp 98.8(O); Weight 95.25 kg (R); lp1 21:30 BP 113 / 78; Pulse 88; Resp 18; Pulse Ox 95% on 2 lpm NC; lp1 22:30 BP 107 / 66; Pulse 84; Resp 18; Pulse Ox 94% on 2 lpm NC; lp1 23:23 BP 107 / 56; Pulse 82; Resp 18; Pulse Ox 95% on 2 lpm NC; lp1 MDM: 18:16 Patient medically screened. [facility] 20:50 Data reviewed: vital signs, nurses notes. Counseling: I had a detailed discussion with arturo the patient and/or guardian regarding: the historical points, exam findings, and any diagnostic results supporting the discharge/admit diagnosis, lab results, radiology results, the need for further work-up and treatment in the hospital. ED course: I discussed the patient with Sathya Shaw PA-C whom accepted the patient to Dr. Frausto's service. . 03/27 18:13 Order name: Basic Metabolic Panel; Complete Time: 20:11 [facility] 03/27 18:13 Order name: CBC with Diff; Complete Time: 20:11 [facility] 03/27 18:13 Order name: Hepatic Function; Complete Time: 20:11 [facility] 03/27 18:13 Order name: Lipase; Complete Time: 20:11 [facility] 03/27 20:38 Order name: Procalcitonin; Complete Time: 22:07 [facility] 03/27 20:38 Order name: Lactate; Complete Time: 22:07 [facility] 03/27 20:38 Order name: CRP; Complete Time: 22:07 [facility] 03/27 20:38 Order name: Ferritin; Complete Time: 22:07 [facility] 03/27 20:52 Order name: Blood Culture Adult (2) [facility] 03/27 20:53 Order name: Blood Culture [facility] 03/27 20:54 Order name: Urine Dipstick--Ancillary (enter results); Complete Time: 22:07 oe 03/27 21:26 Order name: Urine Dipstick--Ancillary (enter results); Complete Time: 22:07 tt3 03/27 21:39 Order name: Basic Metabolic Panel [facility] 03/27 21:39 Order name: Basic Metabolic Panel [facility] 03/27 18:13 Order name: IV Saline Lock; Complete Time: 19:42 [facility] 03/27 18:13 Order name: Labs collected and sent; Complete Time: 19:42 [facility] 03/27 18:22 Order name: Urine Dipstick-Ancillary (obtain specimen); Complete Time: 20:54 [facility] 03/27 21:39 Order name: Regular [facility] 03/27 21:39 Order name: CBC with Automated Diff [facility] 03/27 21:39 Order name: CBC with Automated Diff [facility] 03/27 21:39 Order name: Magnesium [facility] 03/27 21:39 Order name: Magnesium EDMS Administered Medications: 19:30 Drug: NS 0.9% 500 ml Route: IV; Rate: bolus; Site: right antecubital; lp1 20:00 Follow up: IV Status: Completed infusion; IV Intake: 500ml lp1 19:30 Drug: Zofran (Ondansetron) 4 mg Route: IVP; Site: right antecubital; lp1 20:30 Follow up: Response: Nausea is decreased lp1 19:44 Drug: Tylenol 500 mg Route: PO; lp1 21:43 Follow up: Response: Temperature is decreased lp1 21:20 Drug: Decadron - Dexamethasone 10 mg Route: IVP; Site: right antecubital; lp1 23:20 Follow up: Response: No adverse reaction lp1 21:42 Drug: LevaQUIN 750 mg Volume: 150 ml; Route: IVPB; Infused Over: 90 mins; Site: right lp1 antecubital; 23:20 Follow up: IV Status: Completed infusion; IV Intake: 150ml lp1 Disposition: 03/28 19:48 Co-signature as Attending Physician, Sung Stein MD I agree with the assessment and kdr plan of care. Disposition: 03/27/20 20:52 Hospitalization ordered by Davi Frausto for Observation. Preliminary diagnosis are Coronavirus infection, unspecified, Hypoxia, Urinary Tract Infection. - Bed requested for Intensive Care Unit. - Status is Observation. lp1 - Condition is Stable. - Problem is new. - Symptoms are unchanged. Signatures: Dispatcher [employer] EDSung Corona MD MD [facility] Alexander Tinoco PA PA [facility] Keeley Roblero RN RN lp1 Phuong Burch RN RN Tess Hernandez RN RN ll1 Corrections: (The following items were deleted from the chart) 03/27 23:00 20:52 Hospitalization Ordered by Davi Frausto MD for Observation. Preliminary cg diagnosis is Coronavirus infection, unspecified; Hypoxia; Urinary Tract Infection. Bed requested for Telemetry/MedSurg (observation). Status is Observation. Condition is Stable. Problem is new. Symptoms are unchanged. [facility] 03/28 00:11 03/27 23:00 03/27/2020 20:52 Hospitalization Ordered by Davi Frausto MD for lp1 Observation. Preliminary diagnosis is Coronavirus infection, unspecified; Hypoxia; Urinary Tract Infection. Bed requested for Intensive Care Unit. Status is Observation. Condition is Stable. Problem is new. Symptoms are unchanged.
[2020-03-27 21:08] LABS: Urine Blood TRACE (NEG); Urine Glucose NEGATIVE (NEG); Urine Protein 2+ (NEG); Urine Specific Gravity 1.025 (1.005-1.030)
[2020-03-27] MEDS ORDERED: dexAMETHasone 10 MG/ML VIAL ONE (21:15)
[2020-03-27] MEDS ORDERED: Levofloxacin 750mg IV 750 MG/150 ML BAG IV ONE (21:15)
[2020-03-27 21:32] LABS: Urine Blood TRACE (NEG); Urine Glucose NEGATIVE (NEG); Urine Protein 2+ (NEG); Urine Specific Gravity 1.025 (1.005-1.030)
[2020-03-27 21:39] LABS: Ferritin 561.2 ng/mL (8-388)
--- NOTE | 2020-03-27 22:04 | P.HP ---
Certification for Inpatient Patient admitted to: Observation With expected LOS: <2 Midnights Patient will require the following post-hospital care: Home Health Services Practitioner: I am a practitioner with admitting privileges, knowledge of patient current condition, hospital course, and medical plan of care. Services: Services provided to patient in accordance with Admission requirements found in Title 42 Section 412.3 of the Code of Federal Regulations <KimyovanadilmaSathya - Last Filed: 03/27/20 21:59> Patient History Date of Service: 03/27/20 Primary Care Provider: Dr. Unger Reason for admission: Hypoxia History of Present Illness: 74-year-old female with a past medical history of hypertension presents to the emergency room complaining of weakness and shortness of breath. Patient tested positive for Covid approximately 10 days ago. Her is actually in the hospital at this time for Covid related complications. Patient states she has noticed worsening shortness of breath and weakness. In the emergency room patient's room air oxygen saturations were 85% and slowly improve to 87% with ambulation. Patient does not use home oxygen. Patient will likely require home oxygen. Patient is alert and oriented and in no distress. States that she just feels like she can't breathe. Patient was placed in observation Overnite and further evaluated. Home medications list reviewed: Yes - Past Medical/Surgical History Diabetic: No -: htn -: gall bladder stone -: vericose veins -: prolapsed bladder -: nuc stress test - Dr Caraballo 2016 -: appendectomy -: hysterectomy -: cholecystectomy Psychosocial/ Personal History: Lives at home with . - Family History Mother -: Heart disease, Cancer Notes: varicose veins; bladder tumor Father -: Cancer Notes: diverticulitis; arthritis; Parkinson's - Social History Smoking Status: Never smoker Alcohol use: No CD- Drugs: No Caffeine use: Yes Place of Residence: Home <Sathya Shaw - Last Filed: 03/27/20 21:59> Date of Service: 03/28/20 <Davi Frausto - Last Filed: 03/28/20 20:39> Allergies iodine Allergy (Severe, Verified 09/29/17 16:23) Anaphylaxis Penicillins Allergy (Severe, Verified 09/29/17 16:23) Anaphylaxis Home Medications: Lisinopril [Zestril] 5 mg PO DAILY PRN 07/18/18 Aspirin [Aspirin EC 325 MG] 325 mg PO DAILY 30 Days #30 tablet. 03/28/20 predniSONE [Prednisone] 20 mg PO DIRECTED 14 Days #21 tablet 03/28/20 Review of Systems General: As per HPI Eyes: Unremarkable ENT: Unremarkable Respiratory: Shortness of Breath, SOB with Excertion, As per HPI Cardiovascular: Unremarkable Gastrointestinal: Unremarkable Musculoskeletal: Unremarkable Integumentary: Unremarkable Neurological: Weakness, As per HPI Lymphatics: Unremarkable <Sathya Shaw - Last Filed: 03/27/20 21:59> Physical Examination - Vital Signs Temperature: 99.6 F Blood Pressure: 118/62 Pulse: 99 Respirations: 20 Pulse Ox (%): 85 (RA) - Physical Exam General: Alert, In no apparent distress, Oriented x3 HEENT: Atraumatic, Normocephalic, PERRLA Neck: Supple, No Thyromegaly Respiratory: Clear to auscultation bilaterally, Diminished Cardiovascular: No edema, Normal pulses, Normal S1 S2 Gastrointestinal: Normal bowel sounds, Soft and benign, Non-distended Musculoskeletal: No swelling, No contractures, No erythema Integumentary: No rashes, No breakdown, No significant lesion Neurological: Normal gait, Normal speech, Normal strength at 5/5 x4 extr, Normal tone - Studies Laboratory Data (last 24 hrs) 03/27/20 19:30: WBC 6.1, Hgb 13.8, Hct 41.1, Plt Count 131 L 03/27/20 19:30: Sodium 132 L, Potassium 3.5, BUN 13, Creatinine 0.80, Glucose 104, Total Bilirubin 1.0, AST 39 H, ALT 30, Alkaline Phosphatase 60, Lipase 96 <Sathya Shaw - Last Filed: 03/27/20 21:59> - Studies Microbiology Data (last 24 hrs): 03/27/20 21:22 Blood - Blood Anaerobic Blood Culture - Final 03/27/20 21:18 Blood - Blood Anaerobic Blood Culture - Final <Davi Frausto - Last Filed: 03/28/20 20:39> Assessment and Plan - Plan Impression: Hypoxia secondary to a diagnosis of Covid 10 days ago: Essential hypertension: Plan: Hypoxia secondary to a diagnosis of Covid 10 days ago: Patient's room air saturations are 85% and only improved to 87% with ambulation. Patient will require home oxygen. Will start patient on IV methylprednisolone at 40 mg q.8 hr. Monitor O2 sats. Essential hypertension: Patient states she takes 5 mg a lisinopril p.r.n. if her blood pressure is high. Will resume home medications if necessary. Discharge Plan: Home Plan to discharge in: 48 Hours - Advance Directives Does patient have a Living Will: No Does patient have a Durable POA for Healthcare: No - Code Status/Comfort Care Code Status Assessed: Yes Time Spent Managing Pts Care (In Minutes): 55 <Sathya Shaw - Last Filed: 03/27/20 21:59> Physician Review: Patient Assessed, Agree with Above Assessment and Plan Physician Review Additional Text: I have discussed and reviewed the plan of care for this patient as outlined above with Sathya Shaw, and I agree with the above. <Davi Frausto - Last Filed: 03/28/20 20:39>
[2020-03-28] MEDS ORDERED: METHYLPREDNISOLONE 40 MG INJ IV SCH (01:00)
[2020-03-28] MEDS: ENOXAPARIN 80 MG/0.8 ML SQ SCH ×2 (01:59→14:12)
[2020-03-28 05:33] LABS: Absolute Lymphocytes (CBC) 0.5 K/uL (0.7-4.9); Basophils % 0.4 % (0-1.3); Hematocrit 41.6 % (36.0-45.0); Lymphocytes % 14.7 % (15.3-44.8); MPV 12.2 fL (7.6-11.3); RBC Red Blood Cell Count 4.69 M/uL (3.86-4.86)
[2020-03-28] MEDS: METHYLPREDNISOLONE 40 MG INJ IV SCH ×3 (05:33→21:16)
[2020-03-28 05:50] LABS: Magnesium 2.4 mg/dL (1.8-2.4); Potassium 4.3 mmol/L (3.5-5.1)
[2020-03-28] MEDS ORDERED: PNEUMOCOCCAL VACCINE 0.5 ML IMVAC ONE (08:00)
[2020-03-28] MEDS ORDERED: ENOXAPARIN 40 MG/0.4 ML SQ SCH (09:00)
[2020-03-28] MEDS: ACETAMINOPHEN 500 MG TAB PO PRN (15:51)
--- NOTE | 2020-03-28 20:36 | P.PN ---
Subjective Date of Service: 03/28/20 Primary Care Provider: Dr. Unger Chief Complaint: Hypoxia reports moderate improvement, no longer feeling short of breath, continues with cough Review of Systems General: Unremarkable Eyes: Unremarkable ENT: Unremarkable Respiratory: Cough Cardiovascular: Unremarkable Gastrointestinal: Unremarkable Genitourinary: Unremarkable Musculoskeletal: Unremarkable Integumentary: Unremarkable Neurological: Unremarkable Lymphatics: Unremarkable Physical Examination - Vital Signs Temperature: 97.9 F Blood Pressure: 111/58 Pulse: 76 Respirations: 25 Pulse Ox (%): 90 - Physical Exam General: Alert, In no apparent distress HEENT: Mucous membr. moist/pink, EOMI Neck: JVD not distended Respiratory: Other (breathing comfortably on 2L NC) Cardiovascular: No edema, Regular rate/rhythm Gastrointestinal: Soft and benign, Non-distended Musculoskeletal: No erythema, No tenderness Integumentary: No rashes, No breakdown Neurological: Normal speech, Normal affect - Studies Microbiology Data (last 24 hrs): 03/27/20 21:22 Blood - Blood Anaerobic Blood Culture - Final 03/27/20 21:18 Blood - Blood Anaerobic Blood Culture - Final Assessment & Plan Physician Review Additional Text: Hypoxia secondary to a diagnosis of Covid 10 days ago: Essential hypertension: Hypoxia secondary to a diagnosis of Covid 10 days ago: -SpO2 85% at time of admission, feeling much better -likely will require home oxygen -continue IV methylpred 40mg q8hr, lovenox -Monitor O2 sats. Essential hypertension: Patient states she takes 5 mg a lisinopril p.r.n. if her blood pressure is high. Will resume home medications if necessary, so far BP on low-normal side Dispo: anticipate DC home tomorrow Time Spent Managing Pts Care (In Minutes): 35
[2020-03-28] MEDS: DOCUSATE NA/SENNA CONC 1 TAB PO SCH (23:09)
[2020-03-29] MEDS: ACETAMINOPHEN 500 MG TAB PO PRN ×3 (02:30→21:28)
[2020-03-29] MEDS: ENOXAPARIN 80 MG/0.8 ML SQ SCH ×2 (05:05→18:43)
[2020-03-29] MEDS: METHYLPREDNISOLONE 40 MG INJ IV SCH ×3 (05:05→21:28)
[2020-03-29 05:28] LABS: Potassium 3.7 mmol/L (3.5-5.1)
[2020-03-29] MEDS ORDERED: POTASSIUM CL SA 10 MEQ TAB PO ONE (09:00)
--- NOTE | 2020-03-29 12:03 | P.PN ---
Subjective Date of Service: 03/29/20 Primary Care Provider: Dr. Unger Chief Complaint: Hypoxia reports feeling better at times and worse at times compared to yesterday. Feels ok at rest, but gets SOB when moving around the room. denies chest pain, abdominal pain, vision/sensation changes Review of Systems Respiratory: Cough Physical Examination - Vital Signs Temperature: 98.6 F Blood Pressure: 119/66 Pulse: 76 Respirations: 26 Pulse Ox (%): 91 - Physical Exam General: Alert, In no apparent distress HEENT: Mucous membr. moist/pink Neck: Supple, JVD not distended Respiratory: Other (non-labored breathing on 3L NC) Cardiovascular: No edema, Regular rate/rhythm Gastrointestinal: Soft and benign, No tenderness Musculoskeletal: No erythema, No tenderness Integumentary: No rashes Neurological: Normal speech, Normal affect - Studies Microbiology Data (last 24 hrs): 03/27/20 21:22 Blood - Blood Anaerobic Blood Culture - Final 03/27/20 21:18 Blood - Blood Anaerobic Blood Culture - Final Assessment & Plan Physician Review Additional Text: Problem List Hypoxia secondary to a diagnosis of Covid 10 days ago: Essential hypertension: Hypoxia secondary to a diagnosis of Covid 10 days ago: -SpO2 ~86%-88 on 3LNC at rest during exam today, reports drops 70s when moving around room -slightly worse compared to yesterday -continue IV methylpred 40mg q8hr, lovenox -check CXR -Monitor O2 sats. Essential hypertension: Patient states she takes 5 mg a lisinopril p.r.n. if her blood pressure is high. Will resume home medications if necessary, so far BP on low-normal side Dispo: anticipate DC home tomorrow Time Spent Managing Pts Care (In Minutes): 35
--- NOTE | 2020-03-29 13:17 | RAD REPORT ---
EXAM DESCRIPTION: RAD - Chest Single View - 03/29/2020 12:54 pm CLINICAL HISTORY: COVID, shortness of breath COMPARISON: June 2019 TECHNIQUE: AP portable chest image was obtained 03/29/2020 12:54 pm . FINDINGS: Lung volumes are low and there is slight respiratory motion degradation. No right base con solidation or focal infiltrative change seen. There is hazy opacification in the lower left lung fiel d suspicious for pneumonia. No failure or volume overload. Heart and vasculature are normal. No measurable pleural effusion and no pneumothorax. No acute bony abnormality seen. No acute aortic findings suspected. IMPRESSION: Limited portable study. Left lung base pneumonia is suspected.
[2020-03-29] MEDS: DOCUSATE NA/SENNA CONC 1 TAB PO SCH (20:25)
[2020-03-29] MEDS: CIPROFLOXACIN 400mg IV 400 MG/200 ML BAG IV SCH (21:55)
[2020-03-29 22:19] LABS: Urine Appearance CLEAR; Urine Bilirubin NEGATIVE (NEG); Urine Blood NEGATIVE (NEG); Urine Color YELLOW; Urine Glucose NEGATIVE (NEG); Urine Protein TRACE (NEG)
[2020-03-29 23:13] LABS: Urine Microscopic Reflex ORDER UMIC
[2020-03-29 23:14] LABS: Urine Bacteria <20 /HPF (<20); Urine Culture Reflex Order NOT NEEDED; Urine RBC <5 /HPF (NONE SEEN); Urine Urothelial Cells <5 /HPF (NONE SEEN)
[2020-03-30] MEDS ORDERED: ALBUTEROL 2.5 MG/3 ML NEB SOL NEB PRN (00:01)
[2020-03-30 05:36] LABS: Potassium 3.7 mmol/L (3.5-5.1)
[2020-03-30] MEDS ORDERED: POTASSIUM 25 MEQ EFFERV TAB PO ONE (06:00)
[2020-03-30] MEDS: METHYLPREDNISOLONE 40 MG INJ IV SCH ×2 (06:08→10:57)
[2020-03-30] MEDS: ENOXAPARIN 80 MG/0.8 ML SQ SCH (06:09)
[2020-03-30] MEDS: CIPROFLOXACIN 400mg IV 400 MG/200 ML BAG IV SCH ×2 (08:00→21:28)
--- NOTE | 2020-03-30 13:03 | RAD REPORT ---
EXAM DESCRIPTION: RAD - Chest Single View - 03/30/2020 12:56 pm CLINICAL HISTORY: worsening hypoxia Chest pain. COMPARISON: Chest Single View dated 03/29/2020; Chest Pa And Lat (2 Views) dated 06/28/2019; Chest Pa And Lat (2 Views) dated 08/05/2018; Chest Single View dated 02/18/2018 FINDINGS: Portable technique limits examination quality. Mild to moderate bilateral interstitial lung opacities are noted, greatest in the right upper lobe, a nd appearing mildly progressive since the comparative study. Interstitial pulmonary edema or intersti tial bronchitis/pneumonitis are the favored etiology. The heart is normal in size. No displaced fract ures.
[2020-03-30] MEDS: METHYLPREDNISOLONE 125 MG INJ IV SCH ×2 (13:24→21:28)
--- NOTE | 2020-03-30 15:09 | P.PN ---
Subjective Date of Service: 03/30/20 Primary Care Provider: Dr. Unger Chief Complaint: Hypoxia having more SOB, needing more oxygen (now to 6LNC), continues with mild cough, otherwise reports no chest pain, abdominal pain, voiding without issue Review of Systems 10-point ROS is otherwise unremarkable Physical Examination - Vital Signs Temperature: 97.3 F Blood Pressure: 130/65 Pulse: 90 Respirations: 22 Pulse Ox (%): 86 - Physical Exam General: Alert, Oriented x3, Other (laying in bed) HEENT: Mucous membr. moist/pink, Sclerae nonicteric Neck: No LAD Respiratory: Diminished, Crackles/rales (bilateral bases, worse on left) Cardiovascular: Regular rate/rhythm, Normal S1 S2 Gastrointestinal: Normal bowel sounds, Soft and benign, No tenderness Musculoskeletal: No erythema, No tenderness Integumentary: No rashes, No breakdown Neurological: Normal speech, Normal affect - Studies Laboratory Data (last 24 hrs) 03/30/20 04:54: Sodium 137, Potassium 3.7, BUN 11, Creatinine 0.70, Glucose 161 H Assessment & Plan Physician Review Additional Text: Problem List Hypoxia secondary to a diagnosis of Covid 10 days ago UTI Essential hypertension Hypoxia secondary to a diagnosis of Covid 10 days ago: -SpO2 ~88%-92% on 6LNC at rest during exam today, reports drops 70s when moving around room -again, slightly worse compared to yesterday -increase IV methylpred 40mg q8hr to 80 q8hr, continue lovenox -recheck CXR -will consult pulm for further recommendations -lactate increased > 3 this morning, ?septic complicated by hypoxemia UTI -she was started on cipro, UA from 2 days ago suggestive of UTI, however repeat UA yesterday was clean (likely due to receiving levaquin in ED) -unfortunately no culture was performed Essential hypertension: -remains normotensive -Patient states she takes 5 mg a lisinopril p.r.n. if her blood pressure is high. Will resume home medications if necessary, so far BP on low-normal side Dispo: anticipate DC home in ~48hrs discussed patient's case with her physician son-in Claude Ordonezi Time Spent Managing Pts Care (In Minutes): 50
[2020-03-30] MEDS: ENOXAPARIN 100 MG/ML SYR SQ SCH (17:04)
[2020-03-30] MEDS: DOCUSATE NA/SENNA CONC 1 TAB PO SCH (21:28)
[2020-03-31] MEDS: ENOXAPARIN 100 MG/ML SYR SQ SCH ×2 (05:37→17:09)
[2020-03-31] MEDS: METHYLPREDNISOLONE 125 MG INJ IV SCH ×3 (05:37→21:44)
[2020-03-31 05:49] LABS: Absolute Lymphocytes (CBC) 0.5 K/uL (0.7-4.9); Basophils % 0.2 % (0-1.3); Hematocrit 43.7 % (36.0-45.0); Lymphocytes % 4.2 % (15.3-44.8); MPV 11.6 fL (7.6-11.3); RBC Red Blood Cell Count 4.94 M/uL (3.86-4.86)
[2020-03-31 06:01] LABS: BUN Blood Urea Nitrogen 11 mg/dL (7-18); Bicarbonate 29 mmol/L (21-32); Glucose Level 138 mg/dL (74-106); Potassium 3.8 mmol/L (3.5-5.1); Sodium Level 134 mmol/L (136-145)
[2020-03-31 07:46] LABS: Blood Morphology Comment NOT SEEN (NOT SEEN); Ferritin 583.1 ng/mL (8-388); Platelet Estimate ADEQ
[2020-03-31] MEDS ORDERED: POTASSIUM CL SA 10 MEQ TAB PO ONE (08:00)
[2020-03-31] MEDS: CIPROFLOXACIN 400mg IV 400 MG/200 ML BAG IV SCH (08:09)
--- NOTE | 2020-03-31 10:10 | P.CNS ---
Date of Consult: 03/31/20 Reason for Consult: Rao virus pneumonia Primary Care Provider: Dr. Unger Chief Complaint: Hypoxia History of Present Illness: Patient is 74 years of age history of hypertension admitted with weakness and shortness of breath diagnosed with coronal virus 10 days ago as been is also hospitalized with rao virus pneumonia the requiring high concentrations of oxygen however she is very alert not appear to be any discomfort Allergies iodine Allergy (Severe, Verified 09/29/17 16:23) Anaphylaxis Penicillins Allergy (Severe, Verified 09/29/17 16:23) Anaphylaxis Home Medications: Lisinopril [Zestril] 5 mg PO DAILY PRN 02/18/18 Aspirin [Aspirin EC 325 MG] 325 mg PO DAILY 30 Days #30 tablet. 03/28/20 predniSONE [Prednisone] 20 mg PO DIRECTED 14 Days #21 tablet 03/28/20 - Past Medical/Surgical History Diabetic: No -: htn -: gall bladder stone -: vericose veins -: prolapsed bladder -: nuc stress test - Dr Caraballo 2016 -: appendectomy -: hysterectomy -: cholecystectomy Psychosocial/ Personal History: Lives at home with . - Family History Mother Medical History: Heart disease, Cancer Notes: varicose veins; bladder tumor Father Medical History: Cancer Notes: diverticulitis; arthritis; Parkinson's - Social History Smoking Status: Never smoker Alcohol use: No CD- Drugs: No Caffeine use: Yes Place of Residence: Home Physical Examination Temp Pulse Resp BP Pulse Ox 97.0 F 80 24 H 128/68 82 L 03/31/20 08:00 03/31/20 08:00 03/31/20 08:00 03/31/20 08:00 03/31/20 08:00 General: Alert, Cooperative Respiratory: Crackles/rales Cardiovascular: No edema, Normal S1 S2 - Problems (1) Pneumonia due to human coronavirus Current Visit: Yes Status: Acute Plan: Patient is 74 years of age admitted due to pneumonia from rao virus chest x- ray is relatively clear patient's CRP is declining she appears to be very comfortable will try prone positioning nasal cannula oxygen patient is minimally elevated white count Dc Cipro
[2020-03-31] MEDS ORDERED: BISACODYL 10 MG RECTAL SUPP PR PRN (13:28)
--- NOTE | 2020-03-31 14:33 | P.PN ---
Subjective Date of Service: 03/31/20 Primary Care Provider: Dr. Unger Chief Complaint: Hypoxia requiring more oxygen this morning, on HFNC, continues with mild cough. no chest pain, no rash/lesions, no lower extremity pain/swelling. Review of Systems 10-point ROS is otherwise unremarkable Physical Examination - Vital Signs Temperature: 97.7 F Blood Pressure: 118/72 Pulse: 97 Respirations: 18 Pulse Ox (%): 88 - Physical Exam General: Alert, Oriented x3 HEENT: Mucous membr. moist/pink, Sclerae nonicteric Neck: Supple, No LAD Respiratory: Other (breathing comfortably on HFNC) Cardiovascular: No edema, Regular rate/rhythm, Normal S1 S2 Gastrointestinal: Soft and benign, Non-distended, No tenderness Musculoskeletal: No tenderness Integumentary: No rashes Neurological: Normal speech, Normal affect Assessment & Plan Physician Review Additional Text: Problem List Hypoxia secondary to a diagnosis of Covid 10 days ago UTI Essential hypertension Hypoxia secondary to a diagnosis of Covid 10 days ago: -SpO2 ~88%-92% on HFNC at rest during exam today -reports feeling about the same as yesterday -pulm consulted - appreaciate assistance -IV solumedrol @80mg q8hr -continue lovenox -recheck CXR in AM -trend CRP -labs improving, but she is requiring more oxygen, may benefit from proning UTI -she was started on cipro, UA from 3 days ago suggestive of UTI, however repeat UA yesterday was clean (likely due to receiving levaquin in ED vs bad specimen initially) -unfortunately no culture was performed, has been asymptomatic will discontinue cipro Essential hypertension: -remains normotensive -Patient states she takes 5 mg a lisinopril p.r.n. if her blood pressure is high. Will resume home medications if necessary, so far BP on low-normal side Dispo: anticipate DC home in ~48-72hrs Time Spent Managing Pts Care (In Minutes): 40
[2020-03-31] MEDS: ACETAMINOPHEN 500 MG TAB PO PRN (20:04)
[2020-03-31] MEDS: DOCUSATE NA/SENNA CONC 1 TAB PO SCH (20:05)
[2020-04-01] MEDS: METHYLPREDNISOLONE 125 MG INJ IV SCH ×3 (05:00→21:04)
[2020-04-01] MEDS: ENOXAPARIN 100 MG/ML SYR SQ SCH ×2 (05:00→17:01)
[2020-04-01 05:35] LABS: Absolute Lymphocytes (CBC) 0.5 K/uL (0.7-4.9); Basophils % 0.1 % (0-1.3); Hematocrit 44.2 % (36.0-45.0); Lymphocytes % 3.2 % (15.3-44.8); MPV 11.1 fL (7.6-11.3)
[2020-04-01 06:44] LABS: BUN Blood Urea Nitrogen 20 mg/dL (7-18); Bicarbonate 28 mmol/L (21-32); Ferritin 566.4 ng/mL (8-388); Glucose Level 132 mg/dL (74-106); Potassium 3.9 mmol/L (3.5-5.1); Sodium Level 135 mmol/L (136-145)
--- NOTE | 2020-04-01 07:26 | RAD REPORT ---
EXAM DESCRIPTION: RAD - Chest Single View - 04/01/2020 7:13 am CLINICAL HISTORY: covid, increasing oxygen requirement COMPARISON: Portable March 30 TECHNIQUE: AP portable chest image was obtained 04/01/2020 7:13 am . FINDINGS: Lung volumes are low. Interstitial and hazy alveolar opacities are similar to slightly wor se than the comparison study. Some of the worsening is due to the lower lung volumes. Heart size and vasculature are normal range and stable for low lung volumes. No measurable pleural effusion and no p neumothorax. No acute bony abnormality seen. No acute aortic findings suspected. IMPRESSION: Interstitial and hazy alveolar opacification similar to slightly worse than March 30 im aging.
[2020-04-01] MEDS ORDERED: POTASSIUM CL SA 10 MEQ TAB PO ONE (09:00)
--- NOTE | 2020-04-01 09:28 | P.PN ---
Subjective Date of Service: 04/01/20 Primary Care Provider: Dr. Unger Chief Complaint: Hypoxia Subjective: No new changes, Improving Review of Systems 10-point ROS is otherwise unremarkable Physical Examination - Vital Signs Temperature: 98 F Blood Pressure: 135/84 Pulse: 100 Respirations: 18 Pulse Ox (%): 92 - Physical Exam General: Alert, In no apparent distress HEENT: Atraumatic, Normocephalic Neck: Supple, 2+ carotid pulse no bruit Respiratory: Diminished, Crackles/rales Cardiovascular: Normal pulses, Regular rate/rhythm Capillary refill: <2 Seconds Gastrointestinal: Soft and benign, W/out hepatosplenomegaly Musculoskeletal: No clubbing, No swelling Integumentary: No rashes Neurological: Normal speech, Normal strength at 5/5 x4 extr Lymphatics: No axilla or inguinal lymphadenopathy Assessment & Plan Physician Review: Patient Assessed, Agree with Above Assessment and Plan Physician Review Additional Text: Acute Hypoxic Respiratory Failure Hypoxia secondary to a diagnosis of Covid 10 days ago UTI Essential hypertension Hypoxia secondary to a diagnosis of Covid 10 days ago: Still on high-flow35 L at 85% FiO2 Trying to wean down to oxygen requirement Feeling better Appreciate help from pulmonology Continue steroids CRP trending down Continue anticoagulation UTI -she was started on cipro, UA from 3 days ago suggestive of UTI, however repeat UA yesterday was clean (likely due to receiving levaquin in ED vs bad specimen i nitially) -unfortunately no culture was performed, has been asymptomatic will discontinue cipro Essential hypertension: Normotensive Patient states she takes 5 mg a lisinopril p.r.n. if her blood pressure is high. Will resume home medications if necessary Time Spent Managing Pts Care (In Minutes): 43
[2020-04-01 10:23] LABS: Blood Morphology Comment NOT SEEN (NOT SEEN); White Blood Cell Scan OK
[2020-04-01 10:28] LABS: Platelet Estimate ADEQ
--- NOTE | 2020-04-01 11:34 | P.PN ---
Subjective Date of Service: 04/01/20 (Telephone visit) Primary Care Provider: Dr. Unger Chief Complaint: Rao virus pneumonia Patient's condition is stable she is improving still on high concentrations of oxygen will titrate sat to 85-90% Physical Examination - Vital Signs Temperature: 98 F Blood Pressure: 135/84 Pulse: 100 Respirations: 18 Pulse Ox (%): 92 Assessment & Plan - Problems (Diagnosis) (1) Pneumonia due to human coronavirus Current Visit: Yes Status: Acute Plan: Patient is 74 years of age admitted with presumed rao virus pneumonia she is clinically improving titrate sat to 85-90% CRP is decline to less than 50 labs chemistries reviewed Physician Review: Patient Assessed, Agree with Above Assessment and Plan
[2020-04-01] MEDS: ATORVASTATIN 40 MG TAB PO SCH (21:03)
[2020-04-01] MEDS: DOCUSATE NA/SENNA CONC 1 TAB PO SCH (21:03)
[2020-04-01] MEDS: MELATONIN 3 MG TABLET PO SCH (21:04)
[2020-04-02 05:48] LABS: Potassium 4.1 mmol/L (3.5-5.1)
[2020-04-02] MEDS: METHYLPREDNISOLONE 125 MG INJ IV SCH ×3 (06:07→21:16)
[2020-04-02] MEDS: ENOXAPARIN 100 MG/ML SYR SQ SCH ×2 (06:08→18:18)
[2020-04-02] MEDS: THIAMINE HCL 100 MG TABLET PO SCH (08:29)
[2020-04-02] MEDS: VITAMIN D 1000 UNIT TAB PO SCH (08:29)
--- NOTE | 2020-04-02 09:27 | P.PN ---
Subjective Date of Service: 04/02/20 Primary Care Provider: Dr. Unger Chief Complaint: Hypoxia Subjective: No new changes, Improving Review of Systems 10-point ROS is otherwise unremarkable Physical Examination - Vital Signs Temperature: 97.9 F Blood Pressure: 145/81 Pulse: 76 Respirations: 18 Pulse Ox (%): 88 - Physical Exam General: Alert, In no apparent distress HEENT: Atraumatic, Normocephalic Neck: Supple Respiratory: Diminished, Crackles/rales Cardiovascular: Regular rate/rhythm, Normal S1 S2 Capillary refill: <2 Seconds Gastrointestinal: Soft and benign, W/out hepatosplenomegaly Musculoskeletal: No clubbing, No swelling Integumentary: No rashes, No breakdown Neurological: Normal speech, Normal strength at 5/5 x4 extr Lymphatics: No axilla or inguinal lymphadenopathy - Studies Microbiology Data (last 24 hrs): 03/27/20 21:22 Blood - Blood Aerobic Blood Culture - Final No growth in 5 days. 03/27/20 21:22 Blood - Blood Anaerobic Blood Culture - Final 03/27/20 21:18 Blood - Blood Aerobic Blood Culture - Final No growth in 5 days. 03/27/20 21:18 Blood - Blood Anaerobic Blood Culture - Final Assessment & Plan Physician Review: Patient Assessed, Agree with Above Assessment and Plan Physician Review Additional Text: Acute Hypoxic Respiratory Failure Hypoxia secondary to a diagnosis of Covid 10 days ago UTI Essential hypertension Hypoxia secondary to a diagnosis of Covid 10 days ago: Still on high-flow35 L at 50% FiO2 Trying to wean down to oxygen requirement Feeling better Appreciate help from pulmonology Continue steroids CRP trending down Continue anticoagulation UTI She was on cipro, repeat UA was clean Essential hypertension: Normotensive Patient states she takes 5 mg a lisinopril p.r.n. if her blood pressure is high. Will resume home medications if necessary Time Spent Managing Pts Care (In Minutes): 45
--- NOTE | 2020-04-02 16:41 | P.PN ---
Subjective Date of Service: 04/02/20 (Telephone visit) Primary Care Provider: Dr. Unger Chief Complaint: Rao virus pneumonia Patient is improving steadily oxygen requirements have been declining Physical Examination - Vital Signs Temperature: 98.2 F Blood Pressure: 105/55 Pulse: 81 Respirations: 20 Pulse Ox (%): 90 - Studies Microbiology Data (last 24 hrs): 03/27/20 21:22 Blood - Blood Aerobic Blood Culture - Final No growth in 5 days. 03/27/20 21:22 Blood - Blood Anaerobic Blood Culture - Final 03/27/20 21:18 Blood - Blood Aerobic Blood Culture - Final No growth in 5 days. 03/27/20 21:18 Blood - Blood Anaerobic Blood Culture - Final Assessment & Plan - Problems (Diagnosis) (1) Pneumonia due to human coronavirus Current Visit: Yes Status: Acute Plan: Patient admitted with rao virus pneumonia patient is improving poly discharge want she can be managed on 4 L of nasal cannula oxygen oxygen has been setup inflammatory parameters are improving vitals stable Physician Review: Patient Assessed, Agree with Above Assessment and Plan
[2020-04-02] MEDS: MELATONIN 3 MG TABLET PO SCH (21:16)
[2020-04-02] MEDS: DOCUSATE NA/SENNA CONC 1 TAB PO SCH (21:16)
[2020-04-02] MEDS: ATORVASTATIN 40 MG TAB PO SCH (21:17)
[2020-04-03] MEDS: METHYLPREDNISOLONE 125 MG INJ IV SCH ×2 (05:02→17:11)
[2020-04-03] MEDS: ENOXAPARIN 100 MG/ML SYR SQ SCH (05:02)
[2020-04-03] MEDS: THIAMINE HCL 100 MG TABLET PO SCH (08:32)
[2020-04-03] MEDS: VITAMIN D 1000 UNIT TAB PO SCH (08:32)
--- NOTE | 2020-04-03 12:23 | P.PN ---
Subjective Date of Service: 04/03/20 Primary Care Provider: Dr. Unger Chief Complaint: Rao virus pneumonia on HFNC, slighlty improving Review of Systems 10-point ROS is otherwise unremarkable Physical Examination - Vital Signs Temperature: 98.9 F Blood Pressure: 97/60 Pulse: 98 Respirations: 19 Pulse Ox (%): 92 - Physical Exam General: Alert, In no apparent distress HEENT: PERRLA, EOMI Respiratory: Other (on HFNC, no tachypnea) Cardiovascular: Regular rate/rhythm, Normal S1 S2 Gastrointestinal: Soft and benign, Non-distended, No tenderness Musculoskeletal: No erythema, No tenderness Integumentary: No rashes Neurological: Normal speech, Normal affect Assessment & Plan Physician Review Additional Text: Acute Hypoxic Respiratory Failure Hypoxia secondary to a diagnosis of Covid UTI Essential hypertension Hypoxia secondary to a diagnosis of Covid Down to 35% FiO2 HFNC Trying to wean down to oxygen requirement Feeling better, appreciate help from pulmonology Continue steroids CRP trending down Continue anticoagulation UTI She was on cipro, repeat UA was clean Essential hypertension: Normotensive / low-normal Patient states she takes 5 mg a lisinopril p.r.n. if her blood pressure is high. Will resume home medications if necessary Time Spent Managing Pts Care (In Minutes): 35
--- NOTE | 2020-04-03 12:48 | P.PN ---
Subjective Date of Service: 04/03/20 Primary Care Provider: Dr. Unger Chief Complaint: Rao virus pneumonia Patient is is a she feels much better oxygenation has improved really on 4 L on nasal cannula oxygen heating and drinking Review of Systems General: Weakness Respiratory: Shortness of Breath Physical Examination - Vital Signs Temperature: 98.9 F Blood Pressure: 97/60 Pulse: 98 Respirations: 19 Pulse Ox (%): 92 Assessment & Plan - Problems (Diagnosis) (1) Pneumonia due to human coronavirus Current Visit: Yes Status: Acute Plan: Patient is doing much better plan to discharge on prednisone tapering dose and the anticoagulation sugar is reasonably controlled I will reduce the dose of Solu-Medrol to 80 mg Q 12 and Lovenox has been stopped change to Loree Physician Review: Patient Assessed, Agree with Above Assessment and Plan
[2020-04-03] MEDS: MELATONIN 3 MG TABLET PO SCH (20:16)
[2020-04-03] MEDS: APIXABAN 5 MG TABLET PO SCH (20:16)
[2020-04-03] MEDS: ACETAMINOPHEN 500 MG TAB PO PRN (20:16)
[2020-04-03] MEDS: ATORVASTATIN 40 MG TAB PO SCH (20:16)
[2020-04-03] MEDS: DOCUSATE NA/SENNA CONC 1 TAB PO SCH (20:16)
[2020-04-04] MEDS: METHYLPREDNISOLONE 125 MG INJ IV SCH (05:07)
[2020-04-04 05:41] LABS: BUN Blood Urea Nitrogen 28 mg/dL (7-18); Bicarbonate 28 mmol/L (21-32); C-Reactive Protein 9.84 mg/L (<3.00); Ferritin 569.6 ng/mL (8-388); Glucose Level 102 mg/dL (74-106); Potassium 4.1 mmol/L (3.5-5.1); Sodium Level 139 mmol/L (136-145)
[2020-04-04 05:43] LABS: Hematocrit 39.6 % (36.0-45.0); MPV 10.5 fL (7.6-11.3); RBC Red Blood Cell Count 4.44 M/uL (3.86-4.86)
[2020-04-04 06:35] VITALS: BMI 35.6
[2020-04-04] MEDS: THIAMINE HCL 100 MG TABLET PO SCH (07:35)
[2020-04-04] MEDS: VITAMIN D 1000 UNIT TAB PO SCH (07:35)
[2020-04-04] MEDS: APIXABAN 5 MG TABLET PO SCH (07:35)
[2020-04-04 10:45] VITALS: O2SAT 95
--- NOTE | 2020-04-04 11:34 | P.DS ---
Admission Date: 03/30/20 Discharge Date: 04/04/20 Primary Care Provider: Dr. Unger Disposition: ROUTINE DISCHARGE Discharge Condition: GOOD Reason for Admission: COVID-19 pneumonia Consultations: Pulmonary - Dr. Ortiz Procedures: CXR - 03/29/2020 12:54 pm IMPRESSION: Limited portable study. Left lung base pneumonia is suspected. Brief History of Present Illness: 74-year-old female with a past medical history of hypertension presents to the emergency room complaining of weakness and shortness of breath. Patient tested positive for Covid approximately 10 days ago. Her is actually in the hospital at this time for Covid related complications. Patient states she has noticed worsening shortness of breath and weakness. In the emergency room patient's room air oxygen saturations were 85% and slowly improve to 87% with ambulation. Patient does not use home oxygen. Patient is alert and oriented and in no distress. States that she just feels like she can't breathe. Hospital Course: Patient was admitted to [facility] ICU where she was treated with Solumedrol, oxygen supplementation, and anticoagulation. Early on in her course she was requiring increased oxygen supplementation, so her Solumedrol was increased. Shortly after, she turned the corner and slowly improved. On day of discharge, her SpO2 was maintained >90% at rest and with some ambulation around her room. She was breathing much more comfortably, her appetite had returned, and she was voiding without issue. Patient reported feeling well enough to go home. She was discharged with 2 weeks of prednisone and a prescription for Eliquis. She was instructed if Eliquis was too expensive, to at least take a full dose Aspirin daily. Vital Signs/Physical Exam: Temp Pulse Resp BP Pulse Ox 97.6 F 88 18 109/66 94 04/04/20 08:00 04/04/20 08:30 04/04/20 08:30 04/04/20 08:00 04/04/20 08:30 General: Alert, In no apparent distress HEENT: PERRLA, EOMI, Sclerae nonicteric Neck: JVD not distended, No LAD Respiratory: Clear to auscultation bilaterally, Diminished Cardiovascular: Regular rate/rhythm, Normal S1 S2 Gastrointestinal: Soft and benign, Non-distended, No tenderness Musculoskeletal: No tenderness Integumentary: No rashes, No breakdown Neurological: Normal speech, Normal affect Laboratory Data at Discharge: WBC 13.3 K/uL (4.3-10.9) H D 04/04/20 04:54 Hgb 13.1 g/dL (12.0-15.0) 04/04/20 04:54 Hct 39.6 % (36.0-45.0) 04/04/20 04:54 Plt Count 271 K/uL (152-406) 04/04/20 04:54 Sodium 139 mmol/L (136-145) 04/04/20 04:54 Potassium 4.1 mmol/L (3.5-5.1) 04/04/20 04:54 BUN 28 mg/dL (7-18) H 04/04/20 04:54 Creatinine 0.64 mg/dL (0.55-1.3) 04/04/20 04:54 Glucose 102 mg/dL (74-106) 04/04/20 04:54 Magnesium 2.5 mg/dL (1.8-2.4) H 04/04/20 04:54 Total Bilirubin 1.0 mg/dL (0.2-1.0) 03/27/20 19:30 AST 39 U/L (15-37) H 03/27/20 19:30 ALT 30 U/L (12-78) 03/27/20 19:30 Alkaline Phosphatase 60 U/L (45-117) 03/27/20 19:30 Lipase 96 U/L (73-393) 03/27/20 19:30 Home Medications: Lisinopril [Zestril] 5 mg PO DAILY PRN 02/18/18 predniSONE [Prednisone] 20 mg PO DIRECTED 14 Days #21 tablet 03/28/20 Apixaban [Eliquis] 5 mg PO BID 30 Days #60 tablet 04/04/20 New Medications: Apixaban [Eliquis] 5 mg PO BID 30 Days #60 tablet predniSONE [Prednisone] 20 mg PO DIRECTED 14 Days #21 tablet Patient Discharge Instructions: Follow up with PCP within 1 week. Follow up with Pulmonology, Dr. Ortiz within 1-2 weeks. New medications: Prednisone as directed, and Eliquis twice a day. If Eliquis is too expensive, ok to take aspirin 325mg once a day Diet: Regular Activity: Ad toño Followup: Terry Ortiz MD [ACTIVE - CAN ADMIT] - Time spent managing pt's care (in minutes): 55
--- NOTE | 2020-04-04 11:47 | P.PN ---
Subjective Date of Service: 04/04/20 Primary Care Provider: Dr. Unger Chief Complaint: Rao virus pneumonia Patient is doing much better now on 4 L of nasal cannula oxygen agree with discharge home anti coagulated with either Eliquis or aspirin continue with prednisone 20 b.i.d. for a week then 10 twice a day telephone visit with me next week Physical Examination - Vital Signs Temperature: 97.6 F Blood Pressure: 109/66 Pulse: 88 Respirations: 18 Pulse Ox (%): 94 - Physical Exam General: Alert, In no apparent distress, Cooperative Assessment & Plan - Problems (Diagnosis) (1) Pneumonia due to human coronavirus Current Visit: Yes Status: Acute Plan: P doing much better agree with discharge on prednisone Eliquis or aspirin and multi vitamins CRP is level is less than 10 follow up with me in 2 weeks anticoagulation for 2-4 weeks until she is off the oxygen Physician Review: Patient Assessed, Agree with Above Assessment and Plan
[2020-04-04 12:39] VITALS: TEMP 97.4
[2020-04-04 13:15] VITALS: BP 113/61
[2020-04-04] MEDS ORDERED: ENSURE HIGH PROTEIN 237 ML CAN PO SCH (21:00)
== END 2020-04-04 17:02 | disposition home health service (06) | DRG 177 ==
LOC: ER 16:52 → ERHOLD 21:45 → 3RD-ICU 21:46 → ERHOLD 22:19 → 3RD-ICU 23:46 → OBSVTOIN 03-30 10:31
PROVIDERS: ADMIT Hospitalist; ATTEND Hospitalist
DX: U07.1 COVID-19 (principal); J96.01 Acute respiratory failure with hypoxia; N39.0 Urinary tract infection, site not specified; I10 Essential (primary) hypertension; Z90.710 Acquired absence of both cervix and uterus; Z90.49 Acquired absence of other specified parts of digestive tract; Z88.0 Allergy status to penicillin; Z88.8 Allergy status to other drugs, medicaments and biological substances; Z79.82 Long term (current) use of aspirin; Z79.52 Long term (current) use of systemic steroids; Z79.899 Other long term (current) drug therapy
CPT/HCPCS: 36415; 71045; 80048; 80076; 81003; 81015; 82728; 83605; 83690; 83735; 84145; 85025; 85027; 86140; 87040; 94640; 94760; 96365; 96366; 96375; 99285; G0378; J0744; J1100; J1650; J2405; J2920; J2930; J7040; U0003

== ENCOUNTER 2020-04-28 12:58 | Emergency (ER) | payer MEDICARE, OTHER ==
--- OUTSIDE RECORDS SUMMARY | 2020-04-28 13:12 | XMS REPORT | Continuity of Care Document ---
:1945 Author Organization [facility] t Address [facility] Jonny Keen [address] [place] [id number] Care Team Providers Name Role Phone Unavailable Unavailable Unavailable Problems This patient has no known problems. Allergies, Adverse Reactions, Alerts This patient has no known allergies or adverse reactions. Medications This patient has no known medications. Procedures This patient has no known procedures. Encounters Start End Encounter Admission Attending Care Care Encounter Source Date/Time Date/Time Type Type Clinicians Facility Department ID 2019-02-10 2019-02-10 Outpatient [facility] CAR Erna Hemphill 12:15:00 12:15:00 mavis gamble [facility] Results This patient has no known results.
[2020-04-28 14:35] LABS: Absolute Lymphocytes (CBC) 1.4 K/uL (0.7-4.9); Hematocrit 39.5 % (36.0-45.0); Lymphocytes % 18.8 % (15.3-44.8); MPV 10.3 fL (7.6-11.3); RBC Red Blood Cell Count 4.41 M/uL (3.86-4.86)
[2020-04-28 14:37] LABS: Protime INR 1.2
[2020-04-28 14:39] LABS: ALT/SGPT 32 U/L (12-78); AST/SGOT 16 U/L (15-37); Albumin 3.7 g/dL (3.4-5.0); Alkaline Phosphatase 60 U/L (45-117); BUN Blood Urea Nitrogen 12 mg/dL (7-18); Bicarbonate 24 mmol/L (21-32); Bilirubin Direct 0.2 mg/dL (0-0.2); Bilirubin Total 1.1 mg/dL (0.2-1.0); Glucose Level 118 mg/dL (74-106); Magnesium 2.3 mg/dL (1.8-2.4); NT PRO-BNP 95 pg/mL (<450); Potassium 3.9 mmol/L (3.5-5.1); Protein, Total 7.1 g/dL (6.4-8.2); Sodium Level 141 mmol/L (136-145); Troponin (Emerg Dept Use Only) < 0.02 ng/mL (0.0-0.045)
--- NOTE | 2020-04-28 15:03 | RAD REPORT ---
EXAM DESCRIPTION: RAD - Chest Single View - 04/28/2020 2:55 pm CLINICAL HISTORY: SOB, positive COVID test March 27 COMPARISON: April 01 TECHNIQUE: AP portable chest image was obtained 04/28/2020 2:55 pm . FINDINGS: Lung volumes are increased slightly from prior imaging. Prominent interstitial and patchy alveolar opacities are still present in the lung franco. No large consolidation or mass. Heart and va sculature are normal. No measurable pleural effusion and no pneumothorax. No acute bony abnormality s een. No acute aortic findings suspected. IMPRESSION: Interstitial and patchy alveolar opacities scattered in both lung franco slightly worse on the left. When adjusting for inspiratory differences, lung parenchymal findings are not substantially different from April 01.
--- NOTE | 2020-04-28 16:40 | RAD REPORT ---
EXAM DESCRIPTION: CT - Thorax Wo Con - 04/28/2020 4:27 pm CLINICAL HISTORY: SOB, hypertension, positive COVID test March 27, discharge from hospital [facility] r 1 COMPARISON: Thorax Wo Con dated 09/28/2016; Chest Single View dated 04/28/2020 TECHNIQUE: Axial 5 mm thick images of the chest were obtained without IV contrast. All CT scans are performed using dose optimization technique as appropriate and may include automated exposure control or mA/KV adjustment according to patient size. FINDINGS: Scattered ground-glass opacification present in the lung franco along with interstitial st randing. Airspace disease is primarily peripheral. This is a typical presentation for COVID-19 pneumo gregory. This is all presumed to be remnant disease rather than recurrent disease. No pleural thickening or pleural effusion. No pneumothorax. A 6 millimeter pulmonary nodule posterior mid right lung field has not change from 2017 and does not need ongoing monitoring. No abnormal mediastinal or hilar masses or lymphadenopathy seen. No gross aortic or pulmonary artery finding suspected. No cardiomegaly or pericardial effusion. No chest wall mass or abnormal axillary lymphadenopathy. IMPRESSION: Bilateral interstitial and ground-glass opacification typical for COVID-19 pneumonia. Ba sed on testing date and hospital date, this is most likely remnant rather than recurrent pneumonia.
--- NOTE | 2020-04-28 17:09 | EDPHYS ---
Physician Documentation [facility] Name: Padmaja Easley Age: 75 yrs Sex: Female : 1945 Arrival Date: 04/28/2020 Time: 13:01 Bed 20 Private MD: ED Physician Sung Stein HPI: 04/28 17:23 This 75 yrs old Female presents to ER via Ambulatory with complaints of High kdr Blood Pressure. 17:23 The patient has elevated blood pressure and discovered this at home. Onset: The kdr symptoms/episode began/occurred at an unknown time. States it increases with supine position.. Modifying factors: The symptoms are aggravated by activity, The symptoms are alleviated by remaining still. Associated signs and symptoms: Pertinent positives: dyspnea. Severity of symptoms: At its worst the blood pressure was moderate. The patient has experienced similar episodes in the past, today's symptoms are similar, This is an ongoing problem and was discharged on steroids and BP medication. The patient has been recently seen by a physician: the patient's primary care provider, The patient has been recently seen at the [facility] Emergency Department, The patient has been recently been admitted at [facility], was discharged a couple of weeks ago. Historical: - Allergies: 13:09 PENICILLINS; ll1 13:09 Iodine; ll1 - PMHx: 13:09 Hypertension; ll1 - PSHx: 13:09 Cholecystectomy; Hysterectomy; Appendectomy; ll1 - Immunization history:: Flu vaccine is not up to date. - Social history:: Smoking status: Patient denies any tobacco usage or history of. ROS: 17:23 Constitutional: Negative for fever, chills, and weight loss - staes taht when she lays kdr down, her BP goes up and her oxygen saturation goes down. She has taken Lisonpril 5 mg PO five times today Eyes: Negative for injury, pain, redness, and discharge, ENT: Negative for injury, pain, and discharge, Neck: Negative for injury, pain, and swelling, Cardiovascular: Negative for chest pain, palpitations, and edema, Respiratory: Negative for shortness of breath, cough, wheezing, and pleuritic chest pain, Abdomen/GI: Negative for abdominal pain, nausea, vomiting, diarrhea, and constipation, Back: Negative for injury and pain, : Negative for injury, bleeding, discharge, and swelling, MS/Extremity: Negative for injury and deformity, Skin: Negative for injury, rash, and discoloration, Neuro: Negative for headache, weakness, numbness, tingling, and seizure activity. Psych: Negative for depression, anxiety, suicide ideation, homicidal ideation, and hallucinations, Allergy/Immunology: Negative for hives, rash, and allergies, Endocrine: Negative for neck swelling, polydipsia, polyuria, polyphagia, and marked weight changes, Hematologic/Lymphatic: Negative for swollen nodes, abnormal bleeding, and unusual bruising. Exam: 16:49 ECG was reviewed by the Attending Physician. kdr 17:23 Constitutional: This is a well developed, well nourished patient who is awake, alert, kdr and in no acute distress. Head/Face: Normocephalic, atraumatic. Eyes: Pupils equal round and reactive to light, extra-ocular motions intact. Lids and lashes normal. Conjunctiva and sclera are non-icteric and not injected. Cornea within normal limits. Periorbital areas with no swelling, redness, or edema. Neck: Trachea midline, no thyromegaly or masses palpated, and no cervical lymphadenopathy. Supple, full range of motion without nuchal rigidity, or vertebral point tenderness. No Meningismus. Chest/axilla: Normal chest wall appearance and motion. Nontender with no deformity. No lesions are appreciated. Cardiovascular: Regular rate and rhythm with a normal S1 and S2. No gallops, murmurs, or rubs. Normal PMI, no JVD. No pulse deficits. Respiratory: Lungs have equal breath sounds bilaterally, clear to auscultation and percussion. No rales, rhonchi or wheezes noted. No increased work of breathing, no retractions or nasal flaring. Abdomen/GI: Soft, non-tender, with normal bowel sounds. No distension or tympany. No guarding or rebound. No evidence of tenderness throughout. Back: No spinal tenderness. No costovertebral tenderness. Full range of motion. Skin: Warm, dry with normal turgor. Normal color with no rashes, no lesions, and no evidence of cellulitis. MS/ Extremity: Pulses equal, no cyanosis. Neurovascular intact. Full, normal range of motion. Neuro: Awake and alert, GCS 15, oriented to person, place, time, and situation. Cranial nerves II-XII grossly intact. Motor strength 5/5 in all extremities. Sensory grossly intact. Cerebellar exam normal. Normal gait. Psych: Awake, alert, with orientation to person, place and time. Behavior, mood, and affect are within normal limits. Vital Signs: 13:06 BP 152 / 94; Pulse 109; Resp 18; Temp 98.3; Pulse Ox 96% ; Pain 0/10; ll1 13:50 BP 140 / 84; Pulse 106; Resp 20; Pulse Ox 98% on R/A; em 14:30 BP 141 / 97; Pulse 103; Resp 18; Pulse Ox 97% on R/A; em 15:30 BP 121 / 80; Pulse 105; Resp 18; Pulse Ox 96% on R/A; em 16:30 BP 124 / 87; Pulse 103; Resp 18; Pulse Ox 95% on R/A; em MDM: 17:09 Patient medically screened. kdr 17:23 Data reviewed: vital signs, nurses notes, lab test result(s), EKG, radiologic studies. kdr Counseling: I had a detailed discussion with the patient and/or guardian regarding: the historical points, exam findings, and any diagnostic results supporting the discharge/admit diagnosis, lab results, radiology results, the need for outpatient follow up. 04/28 13:56 Order name: Basic Metabolic Panel; Complete Time: 15:51 em 04/28 13:56 Order name: CBC with Diff; Complete Time: 15:51 04/28 13:56 Order name: LFT's; Complete Time: 15:51 04/28 13:56 Order name: Magnesium; Complete Time: 15:51 04/28 13:56 Order name: NT PRO-BNP; Complete Time: 15:51 04/28 13:56 Order name: PT-INR; Complete Time: 15:51 04/28 13:56 Order name: Troponin (emerg Dept Use Only); Complete Time: 15:51 04/28 13:56 Order name: XRAY Chest (1 view); Complete Time: 15:51 em 04/28 13:56 Order name: EKG; Complete Time: 13:57 04/28 13:56 Order name: Cardiac monitoring; Complete Time: 13:56 04/28 13:56 Order name: EKG - Nurse/Tech; Complete Time: 13:56 04/28 13:56 Order name: IV Saline Lock; Complete Time: 14:11 04/28 16:11 Order name: Thorax Wo Con; Complete Time: 16:48 [facility] 04/28 13:56 Order name: Labs collected and sent; Complete Time: 14:11 04/28 13:56 Order name: O2 Per Protocol; Complete Time: 13:56 04/28 13:56 Order name: O2 Sat Monitoring; Complete Time: 13:56 em EC:49 Rate is 106 beats/min. Rhythm is regular, Sinus tachycardia with No ectopy. QRS [place] is kdr Normal. UT interval is normal. QRS interval is normal. QT interval is normal. No Q waves. Clinical impression: NSR w/ Non-specific ST/T Changes and Sinus tachycardia. Administered Medications: No medications were administered Disposition: 04/28/20 17:09 Discharged to Home. Impression: Shortness of breath, Hypertensive heart disease. - Condition is Stable. - Discharge Instructions: Shortness of Breath, Mwvz-[id number]-Onik, Hypertension, Fjyx-mq-[id number]. - Prescriptions for Lisinopril 10 mg Oral Tablet - take 1 tablet by ORAL route once daily; 20 tablet. - Medication Reconciliation Form, Thank You Letter form. - Follow up: Terry Ortiz MD; When: 2 - 3 days; Reason: If symptoms return, Further diagnostic work-up, Recheck today's complaints, Continuance of care, Re-evaluation by your physician. - Problem is new. - Symptoms have improved. - Notes: Continue on your steroids as directed by Dr. Ortiz Signatures: Dispatcher [employer] [facility] Sung Stein MD MD [facility] Victoriano Napoles, RN RN Tess Hernandez RN RN ll1 Corrections: (The following items were deleted from the chart) 16:11 16:03 Chest For PE Angio+CT.RAD.BRZ ordered. [facility] 17:44 17:09 04/28/2020 17:09 Discharged to Home. Impression: Shortness of breath; em Hypertensive heart disease. Condition is Stable. Forms are Medication Reconciliation Form, Thank You Letter, Antibiotic Education, Prescription Opioid Use. Follow up: Terry Ortiz; When: 2 - 3 days; Reason: If symptoms return, Further diagnostic work-up, Recheck today's complaints, Continuance of care, Re-evaluation by your physician. Problem is new. Symptoms have improved. kdr
--- NOTE | 2020-04-28 17:09 | ER ---
Nurse's Notes [facility] Name: Padmaja Easley Age: 75 yrs Sex: Female : 1945 Arrival Date: 04/28/2020 Time: 13:01 Bed 20 Private MD: Diagnosis: Shortness of breath;Hypertensive heart disease Presentation: 04/28 13:06 Chief complaint: Patient states: High BP since Friday, BP 166/113 at home. Was covid ll1 positive Mar 27, released from our hospital 04/04/20. Still has chest irritation since Friday. Coronavirus screen: Client denies travel out of the [place] in the last 14 days. Client presents with at least one sign or symptom that may indicate coronavirus-19. Standard/surgical mask placed on the client. Client reports previous positive COVID test result. Ebola Screen: Patient denies travel to an Ebola-affected area in the 21 days before illness onset. Initial Sepsis Screen: Does the patient meet any 2 criteria? HR > 90 bpm. No. Patient's initial sepsis screen is negative. Risk Assessment: Do you want to hurt yourself or someone else? Patient reports no desire to harm self or others. Onset of symptoms was April 25, 2020. 13:06 Method Of Arrival: Ambulatory ll1 13:06 Acuity: KIRSTEN 3 ll1 Historical: - Allergies: 13:09 PENICILLINS; ll1 13:09 Iodine; ll1 - PMHx: 13:09 Hypertension; ll1 - PSHx: 13:09 Cholecystectomy; Hysterectomy; Appendectomy; ll1 - Immunization history:: Flu vaccine is not up to date. - Social history:: Smoking status: Patient denies any tobacco usage or history of. Screenin:11 Abuse screen: Denies threats or abuse. Nutritional screening: No deficits noted. em Tuberculosis screening: No symptoms or risk factors identified. Fall Risk None identified. Assessment: 13:45 General: Appears in no apparent distress. comfortable, Behavior is calm, cooperative, em appropriate for age, Denies fever. Pain: Complains of pain in chest Pain currently is 0 out of 10 on a pain scale. Quality of pain is described as pressure. Neuro: Level of Consciousness is awake, alert, obeys commands, Oriented to person, place, time, situation, Appropriate for age. Cardiovascular: Capillary refill < 3 seconds Patient's skin is warm and dry. Respiratory: Airway is patent Respiratory effort is even, unlabored, Respiratory pattern is regular, symmetrical, Breath sounds are clear bilaterally. Denies cough, shortness of breath. GI: Abdomen is flat. Derm: Skin is intact, is thin, Skin is pink, warm \T\ dry. Musculoskeletal: Capillary refill < 3 seconds, Range of motion: intact in all extremities. 14:30 Reassessment: Patient appears in no apparent distress at this time. Patient and/or em family updated on plan of care and expected duration. Pain level reassessed. Patient is alert, oriented x 3, equal unlabored respirations, skin warm/dry/pink. 15:30 Reassessment: Patient appears in no apparent distress at this time. Patient and/or em family updated on plan of care and expected duration. Pain level reassessed. Patient is alert, oriented x 3, equal unlabored respirations, skin warm/dry/pink. 16:30 Reassessment: Patient appears in no apparent distress at this time. Patient and/or em family updated on plan of care and expected duration. Pain level reassessed. Patient is alert, oriented x 3, equal unlabored respirations, skin warm/dry/pink. 17:19 Reassessment: Dr. Stein at bedside discussing results with pt. em Vital Signs: 13:06 BP 152 / 94; Pulse 109; Resp 18; Temp 98.3; Pulse Ox 96% ; Pain 0/10; ll1 13:50 BP 140 / 84; Pulse 106; Resp 20; Pulse Ox 98% on R/A; em 14:30 BP 141 / 97; Pulse 103; Resp 18; Pulse Ox 97% on R/A; em 15:30 BP 121 / 80; Pulse 105; Resp 18; Pulse Ox 96% on R/A; em 16:30 BP 124 / 87; Pulse 103; Resp 18; Pulse Ox 95% on R/A; em ED Course: 13:01 Patient arrived in ED. ds1 13:09 Triage completed. ll1 13:10 Arm band placed on Patient placed in an exam room, on a stretcher. ll1 13:11 Victoriano Napoles, RN is Primary Nurse. em 13:11 Patient has correct armband on for positive identification. Bed in low position. Call em light in reach. 14:00 Sung Stein MD is Attending Physician. kdr 14:07 Initial lab(s) drawn, by ar, sent to lab. Inserted saline lock: 20 gauge in right em antecubital area, using aseptic technique. Blood collected. 14:55 XRAY Chest (1 view) In Process Unspecified. EDMS 14:55 XRAY Chest (1 view) Sent. sv 16:27 Thorax Wo Con In Process Unspecified. EDMS 17:08 Terry Ortiz MD is Referral Physician. kdr 17:21 No provider procedures requiring assistance completed. em 17:44 IV discontinued, intact, bleeding controlled, No redness/swelling at site. Pressure em dressing applied. Administered Medications: No medications were administered Outcome: 17:09 Discharge ordered by . kdr 17:43 Discharged to home ambulatory. em 17:43 Condition: good 17:43 Discharge instructions given to patient, Instructed on discharge instructions, follow up and referral plans. medication usage, Demonstrated understanding of instructions, follow-up care, medications, Prescriptions given X 1. 17:44 Patient left the ED. em Signatures: Dispatcher [employer] [facility] Katy Antunez, RN RN Sung Stein MD MD [facility] Victoriano Napoles RN RN Yasmine Acosta ds1 Tess Hernandez RN RN ll1
[2020-04-28 17:51] VITALS: TEMP 98.3
[2020-04-28 17:56] VITALS: BP 124/87; O2SAT 95
--- NOTE | 2020-04-29 12:26 | EKG ---
Test Date: 2020-04-28 Test Time: 13:57:17 Special Educator: NOHEMI MEASUREMENT RESULTS: Intervals: Rate: 106 LA: 140 QRSD: 84 QT: 338 QTc: 448 [place]: P: 44 LA: 140 QRS: 49 T: 9 INTERPRETIVE STATEMENTS: Sinus tachycardia Possible Anterior infarct, age undetermined Abnormal ECG Compared to ECG 02/18/2018 05:27:32 No significant changes Electronically Signed On 04-29-20 12:24:28 CDT by Joe Caraballo
== END 2020-04-28 17:44 | disposition home or self-care (01) ==
LOC: ER 12:58
DX: I11.9 Hypertensive heart disease without heart failure (principal); I10 Essential (primary) hypertension; Z88.0 Allergy status to penicillin; Z91.048 Other nonmedicinal substance allergy status
CPT/HCPCS: 36415; 71045; 71250; 80048; 80076; 83735; 83880; 84484; 85025; 85610; 93005; 99284

== ENCOUNTER 2020-10-21 17:13 | Observation (INO) | payer MEDICARE ==
--- OUTSIDE RECORDS SUMMARY | 2020-10-21 17:15 | XMS REPORT | Continuity of Care Document ---
:1945 Author Organization [facility] t Address [address] [place] [address] Care Team Providers Name Role Phone Unavailable Unavailable Unavailable Problems This patient has no known problems. Allergies, Adverse Reactions, Alerts Allergy Allergy Status Severity Reaction(s) Onset Inactive Treating Comm ents Source Name Type Date Date Clinician PCN Adverse Active Info Not [facility] Reaction Available [facility] Iodine Adverse Active Info Not [facility] Reaction Available [facility] Aspirin Adverse Active jd [facility] Reaction [facility] ent [facility] Medications Ordered Filled Start Stop Current Ordering Indication Dosage Frequency Signature Comments Components Source Medication Medication Date Date Medication? Clinician (SIG) Name Name Tobramycin Tobramycin 0 Yes Na Unger [address] [facility] -17 [facility] affected [facility] Bactrim DS Bactrim DS 2020- No Na Unger [address] [facility] 7-04 10-16 [facility] 00:[facility]: 00:00 [facility] :00 l [facility] Clinics Flonase Flonase Yes Na Unger [address] [facility] Allergy Allergy 9-17 to each [facility] - Relief Relief 00:00: nostril [facility] a 00 l [facility] Fish Oil Fish Oil Yes Na Unger [address] [facility] Lisinopril Lisinopril Yes Na Unger [address] [facility] Aspirin Aspirin Yes Na Unger [address] Adult Low Adult Low [facility] Dose Dose [facility] Triamcinolo Triamcinolo Yes Na Unger [address] [facility] ne ne applicatio [facility] - Acetonide Acetonide n to [facility] affected l area Out[facility] ent Clinics Lisinopril Lisinopril Yes Na Unger [address] [facility] Vitamin D3 Vitamin D3 Yes Na Unger not [facility] defined [facility] Allergy Allergy Yes Na Unger [address] Relief Relief [facility] PredniSONE PredniSONE Yes Na Unger [address] [facility] Eliquis 5 Eliquis 5 Yes Na Unger one [facility] mg mg [facility] Procedures This patient has no known procedures. Encounters Start End Encounter Admission Attending Care Care Encounter Source Date/Time Date/Time Type Type Clinicians Facility Department ID 2020-10-09 2020-10-09 [facility] [id number] [facility] 2020-09-25 2020-09-25 [facility] [id number] 2020-08-29 2020-08-29 [facility] [id number] [facility] 2020-08-24 2020-08-24 [facility] [id number] [facility] 2020-08-21 2020-08-21 [facility] [id number] [facility] 2020-07-27 2020-07-27 [facility] [id number] [facility] 2020-07-26 2020-07-26 [facility] [id number] [facility] 2020-07-19 2020-07-19 [facility] [id number] [facility] 2020-07-04 2020-07-04 [facility] [id number] [facility] 2020-07-04 2020-07-04 [facility] [id number] [facility] 2020-07-03 2020-07-03 [facility] [id number] [facility] 2020-06-16 2020-06-16 [facility] [id number] [facility] 2020-06-14 2020-06-14 [facility] [id number] [facility] 2020-06-13 2020-06-13 [facility] [id number] [facility] 2020-05-23 2020-05-23 [facility] [id number] [facility] 2020-05-17 2020-05-17 [facility] [id number] [facility] 2020-05-04 2020-05-04 [facility] [id number] [facility] 2020-05-03 2020-05-03 [facility] [id number] [facility] 2020-04-28 2020-04-28 [facility] [id number] [facility]00 [facility] Outpat[facility] Clinics 2020-04-20 2020-04-20 [facility] [id number] [facility] 16:42:00 16:42:00 [facility] [employer] [facility] Medicine l Medicine Outpati ent Clinics 2020-04-06 2020-04-06 [facility] [id number] [facility] 11:00:00 11:00:00 t [employer] [facility] - Drive [facility] Medicine Medicine Outpati ent Clinics 2020-03-27 2020-03-27 [facility] [id number] [facility] 08:22:00 08:22:00 t [employer] [facility] - Drive [facility] Medicine Outpati ent Clinics 2020-03-23 2020-03-23 [facility] [id number] 08:36:00 08:36:00 t [employer] - Drive [facility] Medicine Outpati ent Clinics 2020-03-19 2020-03-19 [facility] [id number] 13:34:00 13:34:00 t [employer] [place] [facility] Medicine Outpati ent Clinics 2020-03-17 2020-03-17 [facility] [id number] 11:00:00 11:00:00 t [employer] [place] [facility] l Medicine Outpati ent Clinics 2020-03-17 2020-03-17 [facility] [id number] [address] 08:42:00 08:42:00 t [employer] [place] [facility] Medicine Outpati ent Clinics 2020-02-10 2020-02-10 [facility] [id number] 13:00:00 13:00:00 t [employer] [facility] - Drive [facility] Medicine Outpati ent Clinics 2020-02-10 2020-02-10 [facility] [id number] 08:33:00 08:33:00 t [employer] [facility] - Drive [facility] Medicine Outpati ent Clinics 2019-10-29 2019-10-29 [facility] [id number] [address] 15:20:00 15:20:[address] [facility] [address] Luke s - Road [facility] Medicine l Medicine Outpati ent Clinics 2019-10-29 2019-10-29 [facility] [id number] 14:29:00 14:29:00 [address] [employer] [place] [address] [place] [address] Luke [facility] - Drive [facility] Medicine l Medicine Outpati ent Clinics 2019-10-13 2019-10-13 [facility] [id number] 13:20:00 13:20:00 [address] [employer] [place] [address] [place] [address] Luke s - Drive [facility] Medicine l Medicine Outpati ent Clinics 2019-10-13 2019-10-13 [facility] [id number] [facility] 08:37:00 08:37:00 [address] [employer] [place] [address] [place] [address] Luke s - Drive [facility] Medicine l Medicine Outpati ent Clinics 2019-08-09 2019-08-09 [facility] [id number] [facility] 09:12:00 09:12:00 [address] [employer] [place] [address] Luke s - Drive [facility] Medicine l Medicine Outpati ent Clinics 2019-06-28 2019-06-28 [facility] [id number] 08[facility]40:00 08:40:00 [address] [employer] [place] [address] [place] [address] Luke s - Drive [facility] Medicine l Medicine Outpati ent Clinics 2019-06-21 2019-06-21 [facility] [id number] 08:40:00 08:40:00 [address] [employer] [place] [address] Luke s - Drive [facility] Medicine l Medicine Outpati ent Clinics 2019-04-16 2019-04-16 [facility] [id number] [facility] 08:00:00 08:00:00 [address] [employer] [place] [address] [place] [address] Luke s - Drive [facility] Medicine l Medicine Outpati ent Clinics 2019-03-26 2019-03-26 [facility] [id number] 08:00:00 08:00:00 [address] [employer] [place] [address] Luke s - Drive [facility] Medicine l Medicine Outpati ent Clinics 2019-03-08 2019-03-08 [facility] [id number] 12:31:00 12:31:00 [address] [employer] [place] [address] [place] [address] Luke s - Drive [facility] Medicine l Medicine Outpati ent Clinics 2019-03-03 2019-03-03 [facility] [id number] 09:38:00 09:38:00 t [employer] [place] [employer] - Drive [facility] l Medicine Outpati ent Clinics 2019-02-16 2019-02-16 [facility] [id number] 13:00:00 13:00:00 t [employer] [place] [employer] [place] [employer] - Drive [facility] Medicine Outpati ent Clinics 2019-02-10 2019-02-10 Outpatient [facility] [address] [place] [id number] 12:15:00 12:15:00 l [facility] 2018-11-02 2018-11-02 [facility] [id number] 15:26:00 15:26:00 t [employer] s - Drive [facility] Medicine Medicine Outpati ent Clinics 2018-10-15 2018-10-15 [facility] [id number] 09:00:00 09:00:00 t [employer] s - Drive [facility] Medicine l Medicine Outpati ent Clinics 2018-10-06 2018-10-06 [facility] [id number] 09:17:00 09:17:00 t [employer] s - Drive [facility] Medicine Outpati ent Clinics 2018-10-06 2018-10-06 [facility] [id number] 09:09:00 09:09:00 t [employer] s - Drive [facility] Medicine Medicine Outpati ent Clinics 2018-08-10 2018-08-10 [facility] [id number] 15:04:00 15:04:00 t [employer] [place] [employer] [place] [employer] - Drive [facility] Medicine Medicine Outpati ent Clinics 2018-07-17 2018-07-17 [facility] [id number] 11:15:00 11:15:00 t [employer] s - Drive [facility] Medicine l Medicine Outpati ent Clinics 2018-04-20 2018-04-20 [facility] [id number] 14:45:00 14:45:00 t [employer] s - Drive [facility] ent [facility] 2018-02-20 2018-02-20 Outpatient [facility] [id number] 10:30:00 10:30:00 [employer] [facility] [employer] [facility] ent [facility] Results This patient has no known results.
--- NOTE | 2020-10-21 19:23 | RAD REPORT ---
EXAM DESCRIPTION: RAD - Chest Single View - 10/21/2020 7:16 pm CLINICAL HISTORY: chest tightness Chest pain. COMPARISON: Chest Pa And Lat (2 Views) dated 05/24/2020; Chest Single View dated 04/28/2020; Chest Si ngle View dated 04/01/2020; Chest Single View dated 03/30/2020 FINDINGS: Portable technique limits examination quality. The lungs are grossly clear. The heart is normal in size. No displaced fractures. IMPRESSION: No acute intrathoracic process suspected.
[2020-10-21 19:39] LABS: Absolute Lymphocytes (CBC) 2.2 K/uL (0.7-4.9); Basophils % 0.9 % (0-1.3); Hematocrit 42.2 % (36.0-45.0); Lymphocytes % 29.2 % (15.3-44.8); MPV 11.9 fL (7.6-11.3); RBC Red Blood Cell Count 4.76 M/uL (3.86-4.86)
[2020-10-21] MEDS ORDERED: ASPIRIN 81 MG CHEWABLE TABLET ONE (19:53)
[2020-10-21] MEDS ORDERED: LABETALOL 20 MG/4ML SYRINGE IV ONE (19:53)
[2020-10-21 19:59] LABS: ALT/SGPT 25 U/L (12-78); AST/SGOT 19 U/L (15-37); Albumin 4.2 g/dL (3.4-5.0); Alkaline Phosphatase 81 U/L (45-117); BUN Blood Urea Nitrogen 22 mg/dL (7-18); Bicarbonate 25 mmol/L (21-32); Bilirubin Direct 0.2 mg/dL (0-0.2); Bilirubin Total 1.1 mg/dL (0.2-1.0); Glucose Level 104 mg/dL (74-106); Magnesium 2.6 mg/dL (1.8-2.4); NT PRO-BNP 34 pg/mL (<450); Potassium 4.1 mmol/L (3.5-5.1); Protein, Total 7.7 g/dL (6.4-8.2); Sodium Level 140 mmol/L (136-145); Troponin (Emerg Dept Use Only) < 0.02 ng/mL (0.0-0.045)
[2020-10-21 20:09] LABS: Urine Blood NEGATIVE (NEG); Urine Glucose NEGATIVE (NEG); Urine Protein NEGATIVE (NEG)
--- NOTE | 2020-10-21 20:52 | EDPHYS ---
Physician Documentation [facility] Name: Padmaja Easley Age: 75 yrs Sex: Female : 1945 Arrival Date: 10/21/2020 Time: 17:17 Bed 8 Private MD: Sofia Unger ED Physician Jus Carolina HPI: 10/21 18:25 This 75 yrs old Female presents to ER via Ambulatory with complaints of Chest cp Tightness, Cough. 18:25 The patient or guardian reports chest pain that is located primarily in the anterior cp chest wall. Onset: 3 day(s) ago. 18:25 The pain does not radiate. Associated signs and symptoms: Pertinent positives: cough, cp shortness of breath, Pertinent negatives: abdominal pain, lower extremity pain, lower extremity swelling. The chest pain is described as tightness. Duration: The patient or guardian reports multiple episodes, that wax and wane. The patient has experienced similar episodes in the past, a few times, today's symptoms are similar, to when the patient was apparently diagnosed with pneumonia. Historical: - Allergies: 17:24 Iodine; ca1 17:24 PENICILLINS; ca1 - PMHx: 17:24 Hypertension; ca1 - PSHx: 17:24 Cholecystectomy; Appendectomy; Hysterectomy; ca1 - Immunization history:: Client reports receiving the 2nd dose of the Covid vaccine, Date received: September 29, 2020 Pneumococcal vaccine is not up to date, Flu vaccine is up to date. - Social history:: Smoking status: Patient denies any tobacco usage or history of. ROS: 18:30 Constitutional: Negative for body aches, chills, fever, poor PO intake. cp 18:30 Eyes: Negative for injury, pain, redness, and discharge. cp 18:30 Neck: Negative for pain with movement, pain at rest, stiffness. 18:30 Cardiovascular: Positive for chest pain, palpitations, Negative for edema. 18:30 Respiratory: Positive for cough, with no reported sputum, Negative for shortness of breath, wheezing. 18:30 Abdomen/GI: Negative for abdominal pain, nausea, vomiting, and diarrhea. 18:30 Back: Negative for radiated pain. 18:30 Neuro: Negative for altered mental status, dizziness, headache, syncope, weakness. 18:30 All other systems are negative. Exam: 18:35 Constitutional: The patient appears in no acute distress, alert, awake, cp non-diaphoretic, non-toxic, well developed, well nourished. 18:35 Head/Face: Normocephalic, atraumatic. cp 18:35 Eyes: Periorbital structures: appear normal, Conjunctiva: normal, no exudate, no injection, Sclera: no appreciated abnormality, Lids and lashes: appear normal, bilaterally. 18:35 ENT: External ear(s): are unremarkable, Nose: is normal, Mouth: Lips: moist, Oral mucosa: moist, Posterior pharynx: Airway: no evidence of obstruction, patent. 18:35 Neck: ROM/movement: is normal, is supple, without pain, no range of motions limitations. 18:35 Chest/axilla: Inspection: normal, Palpation: is normal, no crepitus, no tenderness. 18:35 Cardiovascular: Rate: normal, Rhythm: regular, Edema: is not appreciated, JVD: is not appreciated. 18:35 Respiratory: the patient does not display signs of respiratory distress, Respirations: normal, no use of accessory muscles, no retractions, no splinting, no tachypnea, labored breathing, is not present, Breath sounds: are clear throughout, no decreased breath sounds, no stridor, no wheezing. 18:35 Abdomen/GI: Inspection: abdomen appears normal, Palpation: abdomen is soft and non-tender, in all quadrants, rebound tenderness, is not appreciated, voluntary guarding, is not appreciated, involuntary guarding, is not appreciated. 18:35 Back: pain, is absent, ROM is normal. 18:35 Skin: no rash present. 18:35 Neuro: Orientation: to person, place \T\ time. Mentation: is normal, Cerebellar function: is grossly normal, Motor: moves all fours, strength is normal, Sensation: is normal. Vital Signs: 17:19 BP 135 / 90; Pulse 112; Resp 18 S; Temp 98.3(TE); Pulse Ox 96% on R/A; Weight 93.44 kg ca1 (R); Height 5 ft. 4 in. (162.56 cm) (R); Pain 0/10; 19:18 Pulse Ox 89% on R/A; mg2 20:48 BP 125 / 75; Pulse 82; Resp 18; Pulse Ox 96% on 3 lpm NC; mg2 10/22 00:01 BP 112 / 58; Pulse 76; Resp 17; Pulse Ox 96% ; ea 10/21 17:19 Body Mass Index 35.36 (93.44 kg, 162.56 cm) ca1 MDM: 10/21 18:19 Patient medically screened. cp 20:50 Data reviewed: vital signs, nurses notes, lab test result(s), radiologic studies, plain cp films, and as a result, I will admit patient. 20:50 Counseling: I had a detailed discussion with the patient and/or guardian regarding: the cp historical points, exam findings, and any diagnostic results supporting the discharge/admit diagnosis, lab results, radiology results, the need for further work-up and treatment in the hospital. Physician consultation: Oskar MARTIN was called at 20:45, was contacted at 20:45, regarding admission, to the telemetry unit. patient's condition, and will see patient in ED, shortly. 10/21 18:30 Order name: Basic Metabolic Panel cp 10/21 18:30 Order name: CBC with Diff cp 10/21 18:30 Order name: LFT's; Complete Time: 20:13 cp 10/21 20:13 Interpretation: Normal except: BILIT 1.1. cp 10/21 18:30 Order name: Magnesium; Complete Time: 20:13 cp 10/21 18:30 Order name: NT PRO-BNP; Complete Time: 20:13 cp 10/21 18:30 Order name: PT-INR; Complete Time: 22:28 cp 10/21 18:30 Order name: Troponin (emerg Dept Use Only); Complete Time: 20:13 cp 10/21 20:14 Interpretation: Within normal limits: TROPED < 0.02. cp 10/21 18:30 Order name: Basic Metabolic Panel; Complete Time: 20:13 EDMS 10/21 20:13 Interpretation: Normal except: CL 108; BUN 22; GFR 86. cp 10/21 18:31 Order name: CBC with Automated Diff; Complete Time: 19:45 EDMS 10/21 19:45 Interpretation: Normal except: MPV 11.9. cp 10/21 18:32 Order name: Urine Microscopic Only cp 10/21 19:56 Order name: Urine Microscopic Only; Complete Time: 22:28 em 10/21 19:57 Order name: Urine Dipstick--Ancillary (enter results); Complete Time: 20:13 tt3 10/21 20:15 Order name: LAB Add On cp 10/21 20:23 Order name: D-Dimer; Complete Time: 22:28 EDMS 10/21 17:25 Order name: EKG; Complete Time: 17:25 ca1 10/21 17:25 Order name: EKG - Nurse/Tech; Complete Time: 17:30 ca1 10/21 18:30 Order name: XRAY Chest (1 view); Complete Time: 19:45 cp 10/21 18:30 Order name: Cardiac monitoring; Complete Time: 19:22 cp 10/21 18:30 Order name: IV Saline Lock; Complete Time: 19:22 cp 10/21 18:30 Order name: Labs collected and sent; Complete Time: 19:22 cp 10/21 18:30 Order name: O2 Per Protocol; Complete Time: 19:22 cp 10/21 18:30 Order name: O2 Sat Monitoring; Complete Time: 19:23 cp 10/21 18:32 Order name: Urine Dipstick-Ancillary (obtain specimen); Complete Time: 20:16 cp 10/21 22:29 Order name: SARS-COV-2 RT PCR EDMS Administered Medications: 19:45 Drug: Trandate 10 mg Route: IVP; Site: right antecubital; mg2 20:48 Follow up: Response: No adverse reaction mg2 20:16 Not Given (Patient Refused): Aspirin Chewable Tablet 324 mg PO once; 81 mg tablets x 4 mg2 Disposition: 10/22 01:20 Co-signature as Attending Physician, Jus Carolina MD I agree with the assessment and [facility] plan of care. Disposition: 10/21/20 20:51 Hospitalization ordered by Davi Frausto for Observation. Preliminary diagnosis is Chest pain, unspecified. - Bed requested for Telemetry/MedSurg (observation). - Status is Observation. mg2 - Condition is Stable. - Problem is new. - Symptoms have improved. Signatures: Dispatcher [employer] EDNC Jus Carolina MD MD cha Attema, Lee, STEEL POURER HELPER-C [employer] P[employer] HELPER-Cla1 Jus Cordero PA PA cp Gardose, Michele, RN RN mg2 Nelly Otero RN RN ca1 Mary Celeste RN RN rd1 Corrections: (The following items were deleted from the chart) 10/21 21:36 20:54 CORONAVIRUS+MR.LAB.BRZ ordered. EDMS EDMS 10/22 00:00 10/21 20:51 Hospitalization Ordered by Davi Frausto MD for Observation. Preliminary rd1 diagnosis is Chest pain, unspecified. Bed requested for Telemetry/MedSurg (observation). Status is Observation. Condition is Stable. Problem is new. Symptoms have improved. cp 10/22 00:28 00:00 10/21/2020 20:51 Hospitalization Ordered by Davi Frausto MD for Observation. mg2 Preliminary diagnosis is Chest pain, unspecified. Bed requested for Telemetry/MedSurg (observation). Status is Observation. Condition is Stable. Problem is new. Symptoms have improved. rd1
--- NOTE | 2020-10-21 20:52 | ER ---
Nurse's Notes [facility] Name: Padmaja Easley Age: 75 yrs Sex: Female : 1945 Arrival Date: 10/21/2020 Time: 17:17 Bed 8 Private MD: Sofia Unger Diagnosis: Chest pain, unspecified Presentation: 10/21 17:19 Chief complaint: Patient states: Since Friday10/18/2020, been having chest ca1 tightness. Today, my problem is fast heartbeat. My O2 goes down to 87% then goes up to the 90s when I take a deep breath. I had Covid Pneumonia last year in March. Got a little bit of cough, but not constant. Coronavirus screen: Client denies travel out of the [place] in the last 14 days. shortness of breath, Client presents with at least one sign or symptom that may indicate coronavirus-19. Standard/surgical mask placed on the client. Provider contacted for isolation considerations. Ebola Screen: Patient negative for fever greater than or equal to 101.5 degrees Fahrenheit, and additional compatible Ebola Virus Disease symptoms Patient denies exposure to infectious person. Patient denies travel to an Ebola-affected area in the 21 days before illness onset. No symptoms or risks identified at this time. Initial Sepsis Screen: Does the patient meet any 2 criteria? No. Patient's initial sepsis screen is negative. Does the patient have a suspected source of infection? No. Patient's initial sepsis screen is negative. Risk Assessment: Do you want to hurt yourself or someone else? Patient reports no desire to harm self or others. Onset of symptoms was October 21, 2020. 17:19 Method Of Arrival: Ambulatory ca1 17:19 Acuity: KIRSTEN 3 ca1 Triage Assessment: 18:17 General: Appears in no apparent distress. comfortable, Behavior is cooperative, bp appropriate for age, anxious. Pain: Complains of pain in chest. EENT: No deficits noted. Neuro: No deficits noted. Cardiovascular: Rhythm is sinus tachycardia. Respiratory: No deficits noted. GI: No signs and/or symptoms were reported involving the gastrointestinal system. : No signs and/or symptoms were reported regarding the genitourinary system. Derm: No deficits noted. Musculoskeletal: No deficits noted. Historical: - Allergies: 17:24 Iodine; ca1 17:24 PENICILLINS; ca1 - PMHx: 17:24 Hypertension; ca1 - PSHx: 17:24 Cholecystectomy; Appendectomy; Hysterectomy; ca1 - Immunization history:: Client reports receiving the 2nd dose of the Covid vaccine, Date received: September 29, 2020 Pneumococcal vaccine is not up to date, Flu vaccine is up to date. - Social history:: Smoking status: Patient denies any tobacco usage or history of. Screenin:18 Abuse screen: Denies threats or abuse. Denies injuries from another. Nutritional bp screening: No deficits noted. Tuberculosis screening: No symptoms or risk factors identified. Fall Risk None identified. Assessment: 18:18 General: SEE TRIAGE NOTE. bp 20:48 Reassessment: Patient appears in no apparent distress at this time. Patient and/or mg2 family updated on plan of care and expected duration. Pain level reassessed. Patient is alert, oriented x 3, equal unlabored respirations, skin warm/dry/pink. Pain: Denies pain. 10/22 00:04 Reassessment: Patient and/or family updated on plan of care and expected duration. Pain ea level reassessed. Patient is alert, oriented x 3, equal unlabored respirations, skin warm/dry/pink. Vital Signs: 10/21 17:19 BP 135 / 90; Pulse 112; Resp 18 S; Temp 98.3(TE); Pulse Ox 96% on R/A; Weight 93.44 kg ca1 (R); Height 5 ft. 4 in. (162.56 cm) (R); Pain 0/10; 19:18 Pulse Ox 89% on R/A; mg2 20:48 BP 125 / 75; Pulse 82; Resp 18; Pulse Ox 96% on 3 lpm NC; mg2 10/22 00:01 BP 112 / 58; Pulse 76; Resp 17; Pulse Ox 96% ; ea 10/21 17:19 Body Mass Index 35.36 (93.44 kg, 162.56 cm) ca1 ED Course: 10/21 17:17 Patient arrived in ED. am2 17:17 Sofia Unger MD is Private Physician. am2 17:23 Triage completed. ca1 17:24 Arm band placed on right wrist. ca1 17:59 Cody Orona, BILLY is Primary Nurse. bp 18:16 Jus Cordero PA is PHCP. cp 18:16 Jus Carolina MD is Attending Physician. cp 18:18 Patient has correct armband on for positive identification. Bed in low position. Call bp light in reach. Side rails up X2. satellite project site monitor on. Pulse ox on. NIBP on. 19:15 XRAY Chest (1 view) In Process Unspecified. EDMS 19:15 Inserted saline lock: 20 gauge in right antecubital area, using aseptic technique. mg2 Blood collected. 19:45 No provider procedures requiring assistance completed. Oxygen administration via nasal mg2 cannula \T\ 4L/min. 20:50 Davi Frausto MD is Hospitalizing Provider. cp 10/22 00:01 Patient admitted, IV remains in place. ea Administered Medications: 10/21 19:45 Drug: Trandate 10 mg Route: IVP; Site: right antecubital; mg2 20:48 Follow up: Response: No adverse reaction mg2 20:16 Not Given (Patient Refused): Aspirin Chewable Tablet 324 mg PO once; 81 mg tablets x 4 mg2 Outcome: 20:51 Decision to Hospitalize by Provider. cp 10/22 00:01 Condition: stable ea Instructed on the need for admit. 00:08 Admitted to Med/surg accompanied by nurse, via wheelchair, room 205, with oxygen, with mg2 chart, Report called to BILLY Sullivan 00:28 Patient left the ED. mg2 Signatures: Dispatcher [employer] EDMS Jus Cordero PA PA cp Moreno, Amanda am2 Sandy Wagoner RN RN ea Peltier, Brian, RN RN bp Gardose, Michele, RN RN mg2 Nelly Otero RN RN ca1 Corrections: (The following items were deleted from the chart) 10/21 17:25 17:19 Chief complaint: Patient states: Since Friday10/18/2020, been having chest ca1 tightness. Today, my problem is fast heartbeat. My O2 goes down to 87% then goes up to the 90s when I take a deep breath. I had Covid Pneumonia last year in March. ca1 10/22 00:09 00:08 Admitted to mg2 mg2
[2020-10-21 21:04] LABS: Urine Bacteria <20 /HPF (<20); Urine RBC <5 /HPF (NONE SEEN)
--- NOTE | 2020-10-21 23:05 | P.HP ---
Certification for Inpatient Patient admitted to: Observation With expected LOS: <2 Midnights Patient will require the following post-hospital care: None Practitioner: I am a practitioner with admitting privileges, knowledge of patient current condition, hospital course, and medical plan of care. Services: Services provided to patient in accordance with Admission requirements found in Title 42 Section 412.3 of the Code of Federal Regulations <CynskipOskar - Last Filed: 10/21/20 23:03> Patient History Date of Service: 10/21/20 Primary Care Provider: Cornel Reason for admission: Chest pain History of Present Illness: 75-year-old female with history of hypertension presents emergency department for chest tightness. Patient reports that she recover from cates virus infection in the recent months, states that the pain in her chest feels like when she had pneumonia at that time. Patient reports for the last 3-4 days she has had substernal tightness nonradiating associated with some shortness of breath, also reports her heart rate sped high around 110-115 at home and that she has had some low oxygen levels. Patient was evaluated in the emergency department labs unremarkable, chest x-ray without any acute findings. Patient nonreproducible with inspiration/movement/palpation. ED provider wishes to admit for further evaluation and management of chest pain. Patient reports that she has had a stress test approximately 4 years prior but she had a cardiac catheterization approximately 2 years prior that her senior assistant manager and was clear. - Past Medical/Surgical History Diabetic: No -: htn -: gall bladder stone -: vericose veins -: prolapsed bladder -: nuc stress test - Dr Caraballo 2016 -: appendectomy -: hysterectomy -: cholecystectomy Psychosocial/ Personal History: Lives at home with . - Family History Mother -: Heart disease, Cancer Notes: varicose veins; bladder tumor Father -: Cancer Notes: diverticulitis; arthritis; Parkinson's - Social History Alcohol use: No CD- Drugs: No Caffeine use: Yes Place of Residence: Home <Oskar Sparrow - Last Filed: 10/21/20 23:03> Date of Service: 10/23/20 <Davi Frausto - Last Filed: 10/23/20 19:36> Allergies iodine Allergy (Severe, Verified 09/29/17 16:23) Anaphylaxis Penicillins Allergy (Severe, Verified 09/29/17 16:23) Anaphylaxis Home Medications: Lisinopril [Zestril] 10 mg PO DAILY PRN 02/18/18 Ascorbic Acid [Vitamin C] 1,000 mg PO DAILY 10/22/20 Cholecalciferol (Vitamin D3) [Vitamin D3] 2,000 unit PO DAILY 10/22/20 [place]-3 Fatty Acids [[place]-3] 1,000 mg PO DAILY 10/22/20 Review of Systems 10-point ROS is otherwise unremarkable Respiratory: Shortness of Breath Cardiovascular: Chest Pain <Oskar Sparrow - Last Filed: 10/21/20 23:03> Physical Examination - Physical Exam General: Alert, In no apparent distress HEENT: Atraumatic, PERRLA, Mucous membr. moist/pink, EOMI, Sclerae nonicteric Neck: Supple, 2+ carotid pulse no bruit, No LAD, Without JVD or thyroid abnormality Respiratory: Clear to auscultation bilaterally, Normal air movement Cardiovascular: Regular rate/rhythm, Normal S1 S2 Gastrointestinal: Normal bowel sounds, No tenderness Musculoskeletal: No tenderness Integumentary: No rashes Neurological: Normal gait, Normal speech, Normal strength at 5/5 x4 extr, Normal tone, Normal affect Lymphatics: No axilla or inguinal lymphadenopathy - Studies Laboratory Data (last 24 hrs) 10/21/20 19:15: PT 11.5, INR 1.00 10/21/20 19:15: WBC 7.60, Hgb 14.1, Hct 42.2, Plt Count 205 10/21/20 19:15: Sodium 140, Potassium 4.1, BUN 22 H, Creatinine 0.67, Glucose 104, Magnesium 2.6 H, Total Bilirubin 1.1 H, AST 19, ALT 25, Alkaline Phosphatase 81 <Oskar Sparrow - Last Filed: 10/21/20 23:03> Assessment and Plan - Plan Assessment Chest pain rule out ACS Hypertension Plan Chest pain rule out ACS: Monitor on telemetry, trend troponins, continue with daily aspirin. Lipid/thyroid panel with morning labs. Blood pressure on the low side, will hold off on beta brigido therapy. Cardiology consulted, appreciate further input from cardiology. Will order chest x-ray for morning as repeat as patient feels like she has pneumonia but chest x-ray is negative, labs unremarkable. Daily room air saturations as well. Hypertension: Obtain and continue home medications. Discharge Plan: Home Plan to discharge in: 24 Hours - Advance Directives Does patient have a Living Will: No Does patient have a Durable POA for Healthcare: No - Code Status/Comfort Care Code Status Assessed: Yes (Full code) Critical Care: No Time Spent Managing Pts Care (In Minutes): 55 <Oskar Sparrow - Last Filed: 10/21/20 23:03> - Plan Plan of care reviewed as noted above Chest pain, ACS rule out <Davi Frausto - Last Filed: 10/23/20 19:36>
[2020-10-22] MEDS ORDERED: NA CHLORIDE 0.9% 1,000 ML IV SCH (00:46)
[2020-10-22] MEDS ORDERED: ONDANSETRON 4 MG/2 ML VIAL IV PRN (00:46)
[2020-10-22 01:10] LABS: Urine Appearance CLEAR; Urine Bilirubin NEGATIVE (NEG); Urine Blood NEGATIVE (NEG); Urine Color YELLOW; Urine Glucose NEGATIVE (NEG); Urine Protein NEGATIVE (NEG); Urine Urobilinogen 0.2 mg/dL (0.2-1.0); Urine pH 5.5 (5.0-7.0)
[2020-10-22 01:15] LABS: Urine Microscopic Reflex ORDER UMIC
[2020-10-22 01:49] LABS: Urine Bacteria <20 /HPF (<20); Urine RBC <5 /HPF (NONE SEEN); Urine Urothelial Cells <5 /HPF (NONE SEEN)
[2020-10-22 01:58] VITALS: O2SAT 97; BMI 35.6
[2020-10-22 02:49] LABS: Absolute Lymphocytes (CBC) 2.4 K/uL (0.7-4.9); Basophils % 1.3 % (0-1.3); Hematocrit 39.3 % (36.0-45.0); Lymphocytes % 33.6 % (15.3-44.8); MPV 11.4 fL (7.6-11.3); RBC Red Blood Cell Count 4.44 M/uL (3.86-4.86)
[2020-10-22 03:48] LABS: ALT/SGPT 21 U/L (12-78); AST/SGOT 15 U/L (15-37); Albumin 3.6 g/dL (3.4-5.0); Alkaline Phosphatase 68 U/L (45-117); BUN Blood Urea Nitrogen 19 mg/dL (7-18); Bicarbonate 27 mmol/L (21-32); Bilirubin Total 1.1 mg/dL (0.2-1.0); Glucose Level 100 mg/dL (74-106); HDL Cholesterol 66 mg/dL (40-60); LDL Cholesterol, Calculated 109 (<130); Potassium 3.9 mmol/L (3.5-5.1); Protein, Total 6.6 g/dL (6.4-8.2); Sodium Level 144 mmol/L (136-145); Troponin I < 0.02 ng/mL (0.0-0.045)
[2020-10-22] MEDS ORDERED: lisinopriL 5 MG TAB PO PRN (05:31)
--- NOTE | 2020-10-22 08:09 | RAD REPORT ---
EXAM DESCRIPTION: Emma Ge And Salma (2 Views)10/22/2020 6:24 am CLINICAL HISTORY: Shortness of breath COMPARISON: October 21, 2020 FINDINGS: The lungs appear clear of acute infiltrate. The heart is normal size IMPRESSION: No acute abnormalities displayed
[2020-10-22] MEDS ORDERED: POTASSIUM 25 MEQ EFFERV TAB PO ONE (09:00)
[2020-10-22] MEDS ORDERED: ENOXAPARIN 40 MG/0.4 ML SQ SCH (09:00)
[2020-10-22] MEDS ORDERED: ASPIRIN EC 81 MG TAB PO SCH (09:00)
[2020-10-22 16:17] VITALS: BP 123/67; TEMP 97.5
[2020-10-22] MEDS ORDERED: ATORVASTATIN 40 MG TAB PO SCH (21:00)
--- NOTE | 2020-10-22 21:18 | P.DS ---
Admission Date: 10/21/20 Discharge Date: 10/22/20 Primary Care Provider: Cornel Disposition: ROUTINE DISCHARGE Discharge Condition: GOOD Reason for Admission: Chest pain Consultations: Cardiology - Dr. Waddell Procedures: CXR (10/21): No acute intrathoracic process suspected. CXR (10/22): No acute abnormalities displayed Problem List: Chest pain rule out ACS Hypertension Brief History of Present Illness: 75-year-old female with history of hypertension presents emergency department for chest tightness. Patient reports that she recovered from cates virus infection in the recent months, states that the pain in her chest feels like when she had pneumonia at that time. Patient reports for the last 3-4 days she has had substernal tightness nonradiating associated with some shortness of breath, also reports her heart rate sped high around 110-115 at home and that she has had some low oxygen levels. Patient was evaluated in the emergency department labs unremarkable, chest x-ray without any acute findings. Patient nonreproducible with inspiration/movement/palpation. ED provider wishes to admit for further evaluation and management of chest pain. Patient reports that she has had a stress test approximately 4 years prior but she had a cardiac catheterization approximately 2 years prior that her front desk monitor said was clear. Hospital Course: Troponins were negative x3. Patient had resolution of her chest pain. Cardiology evaluated the patient and recommend no further workup and to follow up with her front desk monitor in the next few weeks. Vital Signs/Physical Exam: Physical Exam General: Alert, In no apparent distress HEENT: moist/pink, EOMI, Sclerae nonicteric Neck: Supple, 2+ carotid pulse no bruit, No LAD, Without JVD or thyroid abnormality Respiratory: Clear to auscultation bilaterally, Normal air movement Cardiovascular: Regular rate/rhythm, Normal S1 S2 Gastrointestinal: Normal bowel sounds, No tenderness Musculoskeletal: No tenderness Integumentary: No rashes Temp Pulse Resp BP Pulse Ox 97.5 F 69 16 123/67 94 10/22/20 16:00 10/22/20 16:00 10/22/20 16:00 10/22/20 16:00 10/22/20 16:00 Laboratory Data at Discharge: WBC 7.10 K/uL (4.3-10.9) 10/22/20 02:07 Hgb 13.2 g/dL (12.0-15.0) 10/22/20 02:07 Hct 39.3 % (36.0-45.0) 10/22/20 02:07 Plt Count 168 K/uL (152-406) 10/22/20 02:07 PT 11.5 SECONDS (9.5-12.5) 10/21/20 19:15 INR 1.00 10/21/20 19:15 Sodium 144 mmol/L (136-145) 10/22/20 02:07 Potassium 3.9 mmol/L (3.5-5.1) 10/22/20 02:07 BUN 19 mg/dL (7-18) H 10/22/20 02:07 Creatinine 0.62 mg/dL (0.55-1.3) 10/22/20 02:07 Glucose 100 mg/dL (74-106) 10/22/20 02:07 Magnesium 2.6 mg/dL (1.8-2.4) H 10/22/20 02:07 Total Bilirubin 1.1 mg/dL (0.2-1.0) H 10/22/20 02:07 AST 15 U/L (15-37) 10/22/20 02:07 ALT 21 U/L (12-78) 10/22/20 02:07 Alkaline Phosphatase 68 U/L (45-117) 10/22/20 02:07 Troponin I < 0.02 ng/mL (0.0-0.045) 10/22/20 08:08 Triglycerides 64 mg/dL (<150) 10/22/20 02:07 Cholesterol 188 mg/dL (<200) 10/22/20 02:07 HDL Cholesterol 66 mg/dL (40-60) H 10/22/20 02:07 Cholesterol/HDL Ratio 2.85 10/22/20 02:07 Home Medications: Lisinopril [Zestril] 10 mg PO DAILY PRN 02/18/18 Ascorbic Acid [Vitamin C] 1,000 mg PO DAILY 10/22/20 Cholecalciferol (Vitamin D3) [Vitamin D3] 2,000 unit PO DAILY 10/22/20 [place]-3 Fatty Acids [[place]-3] 1,000 mg PO DAILY 10/22/20 Physician Discharge Instructions: Your chest pain was unlikely to be due to your heart. Your EKG and troponin (cardiac enzymes) were normal. Recommend follow up with your [employer] in a few weeks. Follow up with your PCP in 3-5 days. Diet: AHA Activity: Ad toño Followup: Joe Caraballo MD [ACTIVE - CAN ADMIT] - 1-2 Weeks (front desk monitor- call to schedule an appointment for follow up ) Sofia Unger DO [Primary Care Provider] - (PCP- Call to schedule an appointment ) Time spent managing pt's care (in minutes): 36
--- NOTE | 2020-10-23 22:16 | CON ---
Date of Consultation: 10/22/2020 Reason For Consultation: Chest pain. History Of Present Illness: A -dvrs-ely female with history of hypertension, presented to the emergency room with mild chest tightness. She apparently had a Coronavirus infection in the past couple of months. Stated that the pain felt like when she had the pneumonia with some shortness of breath, substernal, some tightness, no radiation and not related to exertion. At the present time, s he has no chest pain. No further shortness of breath. The patient reports that she had a stress hever t about 4 years ago and that was negative and she had a heart catheterization about 2 years ago that was reported negative as per her report in 2019. Past Medical History: Hypertension and diabetes. Past Surgical History: Appendectomy, hysterectomy, cholecystectomy. Medications: Refer to reconciliation sheet for detailed list. Allergies: LIST WAS REVIEWED. Family History: No premature coronary artery disease. Social History: She does not smoke or drink. Does not use any drugs. Review of Systems: All systems reviewed. They were negative except for mentioned in the HPI. Physical Examination: Vital Signs: Reviewed. Head and Neck: Pupils are equal, reactive to light. Intact eye movements. No JVD. No cervical lym phadenopathy. Neck: Supple. Thyroid is not enlarged. Lungs: Clear to auscultation bilaterally. No rhonchi, rales, or crackles. No accessory muscle use. Heart: Regular rate and rhythm. No extra sounds. Abdomen: Soft, nontender. Bowel sounds positive. No organomegaly. No masses or hernia. No rigidi ty or rebound. Extremities: No edema, clubbing, cyanosis. Intact pulses. Neurologic: Alert, awake, oriented x3. No acute focal deficits appreciated. Investigations: Troponins x3 are negative. Hemoglobin 14.1, creatinine 0.67. EKG without acute abn ormalities. Assessment/plan: Chest pain. It is atypical in nature. Patient claimed normal cardiac catheterizat ion about 2 years ago. It is very unlikely to be cardiac in nature. However, from the cardiac stand point, the patient can be released home and have a followup with Dr. Caraballo in the office in 1 to 2 weeks and further workup with a stress test to be done if necessary unless recommendation of totally normal coronary angiogram is obtained and it was done recently. Thank you for the consult. /DIANNA Voice ID: [id number] Report ID: [id number]
== END 2020-10-22 16:43 | disposition home or self-care (01) ==
LOC: ER 17:13 → ERHOLD 22:26 → 2ND 10-22 00:24
PROVIDERS: ADMIT Hospitalist; ATTEND Hospitalist
DX: R07.9 Chest pain, unspecified (principal); I10 Essential (primary) hypertension; Z86.16 Personal history of COVID-19; Z20.822 Contact with and (suspected) exposure to COVID-19; R94.31 Abnormal electrocardiogram [ECG] [EKG]
CPT/HCPCS: 93005; 87088; 85025 ×2; 87086; 80048; 36415; 83735 ×2; 85610; 80061; 85379; 80076; 84443; 84484 ×3; 84439; 80053; 83880; 71045; 71046; U0003; J1650; J7030; G0378 ×2; 81003; 81015; 96374; 99285

== ENCOUNTER 2020-11-09 07:52 | Emergency (ER) | payer MEDICARE ==
--- OUTSIDE RECORDS SUMMARY | 2020-11-09 07:56 | XMS REPORT | Continuity of Care Document ---
:1945 Author Organization [facility] t Address [address] [place] [address] Care Team Providers Name Role Phone Unavailable Unavailable Unavailable Problems This patient has no known problems. Allergies, Adverse Reactions, Alerts Allergy Allergy Status Severity Reaction(s) Onset Inactive Treating Comm ents Source Name Type Date Date Clinician PCN Adverse Active Info Not [facility] Reaction Available [facility] Iodine Adverse Active Info Not [facility] Reaction Available [facility] Aspirin Adverse Active jd [facility] Reaction [facility] Medications Ordered Filled Start Stop Current Ordering Indication Dosage Frequency Signature Comments Components Source Medication Medication Date Date Medication? Clinician (SIG) Name Name Tobramycin Tobramycin 0 Yes Na Unger [address] [facility] -17 [facility] affected [facility] Bactrim DS Bactrim DS 2020- No Na Unger [address] [facility] 7-16 [facility] 00:[facility]00 [facility] :00 l [facility] Flonase Flonase Yes Na Unger [address] [facility] Allergy Allergy 9-17 to each [facility] Relief Relief 00:00: nostril [facility] a 00 l [facility] Fish Oil Fish Oil Yes Na Unger [address] [facility] Lisinopril Lisinopril Yes Na [...] [address] [facility] Eliquis 5 Eliquis 5 Yes Na Unger one [facility] mg mg [facility] Procedures This patient has no known procedures. Encounters Start End Encounter Admission Attending Care Care Encounter Source Date/Time Date/Time Type Type Clinicians Facility Department ID 2020-10-25 2020-10-25 Outpatient [facility] [id number] [facility] 2020-10-23 2020-10-23 [facility] [id number] [facility] 2020-10-09 2020-10-09 [facility] [id number] [facility] 2020-09-25 2020-09-25 [facility] [id number] [facility] 2020-08-29 2020-08-29 [facility] [id number] [facility] 2020-08-24 2020-08-24 [facility] [id number] [facility] 2020-08-21 2020-08-21 [facility] [id number] [facility] 2020-07-27 2020-07-27 [facility] [id number] [facility] 2020-07-26 2020-07-26 [facility] [id number] [facility] 2020-07-19 2020-07-19 [facility] [id number] [facility] 2020-07-04 2020-07-04 [facility] [id number] [facility] 2020-07-04 2020-07-04 [facility] [id number] [facility] 2020-07-03 2020-07-03 [facility] [id number] [facility] 2020-06-16 2020-06-16 [facility] [id number] [facility] 2020-06-14 2020-06-14 Out[facility] [id number] [facility] 2020-06-13 2020-06-13 Out[facility] [id number] [facility] 2020-05-23 2020-05-23 Out[facility] [id number] [facility] 2020-05-17 2020-05-17 Out[facility] [id number] [facility] 2020-05-04 2020-05-04 [facility] [id number] [facility] 2020-05-03 2020-05-03 [facility] [id number] [facility] 2020-04-28 2020-04-28 [facility] [id number] [facility] 2020-04-20 2020-04-20 [facility] [id number] [facility] 16:42:00 16:42:00 [place] [employer] s - [facility] l Medicine Outpati ent Clinics 2020-04-06 2020-04-06 [facility] [id number] 11:00:00 11:00:00 t [employer] s - Drive [facility] Medicine Medicine Outpati ent Clinics 2020-03-27 2020-03-27 [facility] [id number] 08:22:00 08:22:00 [place] [employer] [employer]wei s - Drive [facility] Medicine l Medicine Outpati ent Clinics 2020-03-23 2020-03-23 [facility] [id number] [facility] 08:36:00 08:36:00 [place] [employer] s - Drive [facility] Medicine l Medicine Outpati ent Clinics 2020-03-19 2020-03-19 [facility] [id number] [facility] 13:34:00 13:34:00 [place] [employer] Wanwei s - Drive [facility] Medicine l Medicine Outpati ent Clinics 2020-03-17 2020-03-17 [facility] [id number] 11:00:00 11:00:00 [place] [employer] s - Drive [facility] Medicine l Medicine Outpati ent Clinics 2020-03-17 2020-03-17 [facility] [id number] 08:42:00 08:42:00 [place] [employer] Wanwei s - Drive [facility] l Medicine Outpati ent Clinics 2020-02-10 2020-02-10 [facility] [id number] 13:00:00 13:00:[address] [place] [address] - [address] [facility] Medicine l Medicine Outpati ent Clinics 2020-02-10 2020-02-10 [facility] [id number] [facility] 08:33:00 08:33:00 [place] [employer] s - Drive [facility] Medicine l Medicine Outpati ent Clinics 2019-10-29 2019-10-29 [facility] [id number] 15:20:00 15:20:[address] [facility] [address] [employer] s - Road [facility] l Medicine Outpati ent Clinics 2019-10-29 2019-10-29 [facility] [id number] [facility] 14:29:00 14:29:00 [place] [employer] s - Drive [facility] Medicine Outpati ent Clinics 2019-10-13 2019-10-13 [facility] [id number] 13:20:00 13:20:00 [place] [employer] s - Drive [facility] Medicine Outpati ent Clinics 2019-10-13 2019-10-13 [facility] [id number] [facility] 08:37:00 08:37:00 [place] [employer] s - Drive [facility] Medicine Outpati ent Clinics 2019-08-09 2019-08-09 [facility] [id number] 09:12:00 09:12:00 [place] [employer] s - Drive [facility] Medicine l Medicine Outpati ent Clinics 2019-06-28 2019-06-28 [facility] [id number] 08:40:00 08:40:00 [place] [employer] s - Drive [facility] Medicine Medicine Outpati ent Clinics 2019-06-21 2019-06-21 [facility] [id number] 08:40:00 08:40:00 [place] [employer] s - Drive [facility] Medicine Outpati ent Clinics 2019-04-16 2019-04-16 [facility] [id number] [facility] 08:00:00 08:00:00 [place] [employer] s - Drive [facility] l Medicine Outpati ent Clinics 2019-03-26 2019-03-26 [facility] [id number] 08:00:00 08:00:[address] - [address] [facility] Medicine l Medicine Outpati ent Clinics 2019-03-08 2019-03-08 [facility] [id number] [facility] 12:31:00 12:31:[address] - [address] [facility] Medicine l Medicine Outpati ent Clinics 2019-03-03 2019-03-03 [facility] [id number] [facility] 09:38:00 09:38:[address] - [address] [facility] Medicine l Medicine Outpati ent Clinics 2019-02-16 2019-02-16 [facility] [id number] [facility] 13:00:00 13:00:[address] - [address] [facility] Medicine l Medicine Outpati ent Clinics 2019-02-10 2019-02-10 Outpatient [facility] [address] [place] [id number] 12:15:00 12:15:00 [facility] 2018-11-02 2018-11-02 [facility] [id number] 15:26:00 15:26:[address] - [address] [facility] Medicine l Medicine Outpati ent Clinics 2018-10-15 2018-10-15 [facility] [id number] 09:00:00 09:00:[address] - [address] [facility] Medicine l Medicine Outpati ent Clinics 2018-10-06 2018-10-06 [facility] [id number] [facility] 09:17:00 09:17:[address] - [address] [facility] Medicine l Medicine Outpati ent Clinics 2018-10-06 2018-10-06 [facility] [id number] 09:09:00 09:09:[address] - [address] [facility] Medicine l Medicine Outpati ent Clinics 2018-08-10 2018-08-10 [facility] [id number] [facility] 15:04:00 15:04:[address] - [address] [facility] Medicine l Medicine Outpati ent Clinics 2018-07-17 2018-07-17 [facility] [id number] [facility] 11:15:00 11:15:00 t [employer] [facility] 2018-04-20 2018-04-20 [facility] [id number] 14:45:00 14:45:00 t [employer] [facility] 2018-02-20 2018-02-20 [facility] [id number] [facility] 10:30:00 10:30:00 t [employer] [facility] Results This patient has no known results.
--- NOTE | 2020-11-09 09:04 | RAD REPORT ---
EXAM DESCRIPTION: Emma Single View11/09/2020 8:49 am CLINICAL HISTORY: Hypertension COMPARISON: October 2020 FINDINGS: The lungs appear clear of acute infiltrate. The heart is normal size IMPRESSION: No acute abnormalities displayed
[2020-11-09 09:16] LABS: Absolute Lymphocytes (CBC) 1.6 K/uL (0.7-4.9); Basophils % 0.4 % (0-1.3); Hematocrit 40.1 % (36.0-45.0); MPV 11.3 fL (7.6-11.3); RBC Red Blood Cell Count 4.54 M/uL (3.86-4.86)
[2020-11-09 09:30] LABS: Protime INR 0.97
[2020-11-09 09:51] LABS: ALT/SGPT 22 U/L (12-78); AST/SGOT 13 U/L (15-37); Alkaline Phosphatase 80 U/L (45-117); BUN Blood Urea Nitrogen 15 mg/dL (7-18); Bicarbonate 26 mmol/L (21-32); Bilirubin Direct 0.2 mg/dL (0-0.2); Bilirubin Total 0.7 mg/dL (0.2-1.0); Glucose Level 104 mg/dL (74-106); Magnesium 2.3 mg/dL (1.8-2.4); NT PRO-BNP 50 pg/mL (<450); Protein, Total 7.2 g/dL (6.4-8.2); Sodium Level 140 mmol/L (136-145); Troponin (Emerg Dept Use Only) < 0.02 ng/mL (0.0-0.045)
[2020-11-09] MEDS ORDERED: METOPROLOL TARTRATE 5 MG/5 ML INJ IV ONE (09:57)
--- NOTE | 2020-11-09 10:59 | EDPHYS ---
Physician Documentation [facility] Name: Padmaja Easley Age: 75 yrs Sex: Female : 1945 Arrival Date: 11/09/2020 Time: 07:56 Bed 16 Private MD: ED Physician Sung Stein HPI: 11/09 18:13 This 75 yrs old Female presents to ER via Ambulatory with complaints of High kdr Blood Pressure. 18:13 The patient has elevated blood pressure and discovered this at home, with a home kdr device. Onset: The symptoms/episode began/occurred gradually, 2 week(s) ago. Modifying factors: The symptoms are aggravated by Nothing. Associated signs and symptoms: Pertinent positives: weakness. Severity of symptoms: At its worst the blood pressure was moderate, in the emergency department the blood pressure is improved, mildly. The patient has not experienced similar symptoms in the past. The patient has not recently seen a physician. Historical: - Allergies: 08:26 Iodine; aa5 08:26 PENICILLINS; aa5 - PMHx: 08:26 Hypertension; aa5 - PSHx: 08:26 Cholecystectomy; Appendectomy; Hysterectomy; aa5 - Immunization history:: Adult Immunizations unknown. - Social history:: Smoking status: Patient denies any tobacco usage or history of. ROS: 18:13 Constitutional: Negative for fever, chills, and weight loss, Eyes: Negative for injury, kdr pain, redness, and discharge, ENT: Negative for injury, pain, and discharge, Neck: Negative for injury, pain, and swelling, Respiratory: Negative for shortness of breath, cough, wheezing, and pleuritic chest pain, Abdomen/GI: Negative for abdominal pain, nausea, vomiting, diarrhea, and constipation, Back: Negative for injury and pain, : Negative for injury, bleeding, discharge, and swelling, MS/Extremity: Negative for injury and deformity, Skin: Negative for injury, rash, and discoloration, Neuro: Negative for headache, weakness, numbness, tingling, and seizure activity. Allergy/Immunology: Negative for hives, rash, and allergies, Endocrine: Negative for neck swelling, polydipsia, polyuria, polyphagia, and marked weight changes, Hematologic/Lymphatic: Negative for swollen nodes, abnormal bleeding, and unusual bruising. 18:13 Cardiovascular: Positive for palpitations, Negative for chest pain, edema, orthopnea, acute changes. Exam: 18:13 Constitutional: This is a well developed, well nourished patient who is awake, alert, kdr and in no acute distress. Head/Face: Normocephalic, atraumatic. Eyes: Pupils equal round and reactive to light, extra-ocular motions intact. Lids and lashes normal. Conjunctiva and sclera are non-icteric and not injected. Cornea within normal limits. Periorbital areas with no swelling, redness, or edema. Neck: Trachea midline, no thyromegaly or masses palpated, and no cervical lymphadenopathy. Supple, full range of motion without nuchal rigidity, or vertebral point tenderness. No Meningismus. Chest/axilla: Normal chest wall appearance and motion. Nontender with no deformity. No lesions are appreciated. Cardiovascular: Regular rate and rhythm with a normal S1 and S2. No gallops, murmurs, or rubs. Normal PMI, no JVD. No pulse deficits. Respiratory: Lungs have equal breath sounds bilaterally, clear to auscultation and percussion. No rales, rhonchi or wheezes noted. No increased work of breathing, no retractions or nasal flaring. Abdomen/GI: Soft, non-tender, with normal bowel sounds. No distension or tympany. No guarding or rebound. No evidence of tenderness throughout. Back: No spinal tenderness. No costovertebral tenderness. Full range of motion. Female : Normal external genitalia. Skin: Warm, dry with normal turgor. Normal color with no rashes, no lesions, and no evidence of cellulitis. MS/ Extremity: Pulses equal, no cyanosis. Neurovascular intact. Full, normal range of motion. Neuro: Awake and alert, GCS 15, oriented to person, place, time, and situation. Cranial nerves II-XII grossly intact. Motor strength 5/5 in all extremities. Sensory grossly intact. Cerebellar exam normal. Normal gait. Psych: Awake, alert, with orientation to person, place and time. Behavior, mood, and affect are within normal limits. Vital Signs: 08:18 BP 122 / 65; Pulse 105; Resp 18 S; Temp 98.3(TE); Pulse Ox 98% on R/A; Weight 92.99 kg aa5 (R); Height 5 ft. 4 in. (162.56 cm) (R); 09:26 BP 134 / 72; Pulse 89; Resp 15; Temp 98.1(O); Pulse Ox 93% on R/A; mh5 10:20 BP 118 / 80; Pulse 66; Resp 16 S; Pulse Ox 94% on R/A; jd3 11:21 BP 123 / 71; Pulse 65; Resp 16 S; Pulse Ox 95% on R/A; jd3 08:18 Body Mass Index 35.19 (92.99 kg, 162.56 cm) aa5 MDM: 10:58 Patient medically screened. kdr 18:13 Data reviewed: vital signs, nurses notes, lab test result(s), radiologic studies. kdr Counseling: I had a detailed discussion with the patient and/or guardian regarding: the historical points, exam findings, and any diagnostic results supporting the discharge/admit diagnosis, lab results, radiology results, the need for outpatient follow up. 11/09 08:33 Order name: Basic Metabolic Panel; Complete Time: 10:46 kdr 11/09 08:33 Order name: CBC with Diff; Complete Time: 10:46 kdr 11/09 08:33 Order name: LFT's; Complete Time: 10:46 kdr 11/09 08:33 Order name: Magnesium; Complete Time: 10:46 kdr 11/09 08:33 Order name: NT PRO-BNP; Complete Time: 10:46 kdr 11/09 08:33 Order name: PT-INR; Complete Time: 10:46 kdr 11/09 08:33 Order name: Troponin (emerg Dept Use Only); Complete Time: 10:46 kdr 11/09 08:33 Order name: XRAY Chest (1 view); Complete Time: 10:46 kdr 11/09 08:33 Order name: EKG; Complete Time: 08:34 kdr 11/09 08:33 Order name: Cardiac monitoring; Complete Time: 08:39 kdr 11/09 08:33 Order name: EKG - Nurse/Tech; Complete Time: 09:07 kdr 11/09 08:33 Order name: IV Saline Lock; Complete Time: 09:07 kdr 08 08:33 Order name: Labs collected and sent; Complete Time: 09:07 kdr 11/09 08:33 Order name: O2 Per Protocol; Complete Time: 08:39 kdr 11/09 08:33 Order name: O2 Sat Monitoring; Complete Time: 08:39 kdr Administered Medications: 09:45 Drug: Lopressor 5 mg Route: IVP; Site: right antecubital; jd3 10:45 Follow up: Response: No adverse reaction jd3 Disposition: 11/09/20 10:58 Discharged to Home. Impression: Hypertensive heart disease - Poorly controlled, Anxiety disorder, unspecified. - Condition is Stable. - Discharge Instructions: Hypertension, [id number], Generalized Anxiety Disorder. - Prescriptions for Ativan 0.5 mg Oral Tablet - take 1 tablet by ORAL route every 8 hours As needed; 6 tablet. - Medication Reconciliation Form, Thank You Letter form. - Follow up: Private Physician; When: 2 - 3 days; Reason: If symptoms return, Further diagnostic work-up, Recheck today's complaints, Continuance of care, Re-evaluation by your physician. - Problem is an acute exacerbation. - Symptoms have improved. - Notes: You may take your Lisinopril up to two times in a 24 hour period at least 4 - 6 hours appart as needed for Blood Pressure control Signatures: Dispatcher [employer] EDMS Sung Stein MD MD kdr Arianne Castillo RN RN aa5 Vin Lizarraga RN RN jd3 Corrections: (The following items were deleted from the chart) 11:25 10:58 11/09/2020 10:58 Discharged to Home. Impression: Hypertensive heart disease - jd3 Poorly controlled; Anxiety disorder, unspecified. Condition is Stable. Forms are Medication Reconciliation Form, Thank You Letter, Antibiotic Education, Prescription Opioid Use. Follow up: Private Physician; When: 2 - 3 days; Reason: If symptoms return, Further diagnostic work-up, Recheck today's complaints, Continuance of care, Re-evaluation by your physician. Problem is an acute exacerbation. Symptoms have improved. kdr
--- NOTE | 2020-11-09 10:59 | ER ---
Nurse's Notes [facility] Name: Padmaja Easley Age: 75 yrs Sex: Female : 1945 Arrival Date: 11/09/2020 Time: 07:56 Bed 16 Private MD: Diagnosis: Hypertensive heart disease-Poorly controlled;Anxiety disorder, unspecified Presentation: 11/09 08:18 Chief complaint: Patient states: "since Friday I've been feeling palpitations on and aa5 off and Dr. Ortiz said to use Dulera inhaler when I feel pressure in my chest because I had COVID Pneumonia back in March 2020". Pt also reports high blood pressure readings at home, highest 148/99. Pt states "I've been feeling stressed for a while now". 08:18 Coronavirus screen: At this time, the client does not indicate any symptoms associated aa5 with coronavirus-19. Ebola Screen: Patient negative for fever greater than or equal to 101.5 degrees Fahrenheit, and additional compatible Ebola Virus Disease symptoms. Initial Sepsis Screen: Does the patient meet any 2 criteria? No. Patient's initial sepsis screen is negative. Does the patient have a suspected source of infection? No. Patient's initial sepsis screen is negative. Risk Assessment: Do you want to hurt yourself or someone else? Patient reports no desire to harm self or others. Onset of symptoms was November 2020. 08:18 Method Of Arrival: Ambulatory aa5 08:18 Acuity: KIRSTEN 3 aa5 Historical: - Allergies: 08:26 Iodine; aa5 08:26 PENICILLINS; aa5 - PMHx: 08:26 Hypertension; aa5 - PSHx: 08:26 Cholecystectomy; Appendectomy; Hysterectomy; aa5 - Immunization history:: Adult Immunizations unknown. - Social history:: Smoking status: Patient denies any tobacco usage or history of. Screenin:22 Abuse screen: Denies threats or abuse. Nutritional screening: No deficits noted. jd3 Tuberculosis screening: No symptoms or risk factors identified. Fall Risk Ambulatory Aid- None/Bed Rest/Nurse Assist (0 pts). Gait- Normal/Bed Rest/Wheelchair (0 pts) Mental Status- Oriented to own ability (0 pts). Total Gray Fall Scale indicates No Risk (0-24 pts). Assessment: 08:45 General: Appears in no apparent distress. comfortable, Behavior is calm, cooperative, jd3 appropriate for age. Pain: Complains of pain in chest Quality of pain is described as pressure. Neuro: Level of Consciousness is awake, alert, obeys commands, Oriented to person, place, time, situation. Cardiovascular: Capillary refill < 3 seconds Patient's skin is warm and dry. Rhythm is regular. Respiratory: Airway is patent Respiratory effort is even, unlabored, Respiratory pattern is regular, symmetrical, Denies cough, shortness of breath. GI: No signs and/or symptoms were reported involving the gastrointestinal system. : No signs and/or symptoms were reported regarding the genitourinary system. EENT: No signs and/or symptoms were reported regarding the EENT system. Derm: Skin is intact, Skin is dry, Skin is normal, Skin temperature is warm. Musculoskeletal: Circulation, motion, and sensation intact. Range of motion: intact in all extremities. 09:30 Reassessment: Patient appears in no apparent distress at this time. No changes from jd3 previously documented assessment. Patient and/or family updated on plan of care and expected duration. Pain level reassessed. Patient is alert, oriented x 3, equal unlabored respirations, skin warm/dry/pink. 10:22 Reassessment: Patient appears in no apparent distress at this time. No changes from jd3 previously documented assessment. Patient and/or family updated on plan of care and expected duration. Pain level reassessed. Patient is alert, oriented x 3, equal unlabored respirations, skin warm/dry/pink. 11:20 Reassessment: Patient appears in no apparent distress at this time. Patient and/or jd3 family updated on plan of care and expected duration. Pain level reassessed. Patient is alert, oriented x 3, equal unlabored respirations, skin warm/dry/pink. Patient denies pain at this time. Patient states feeling better. Vital Signs: 08:18 BP 122 / 65; Pulse 105; Resp 18 S; Temp 98.3(TE); Pulse Ox 98% on R/A; Weight 92.99 kg aa5 (R); Height 5 ft. 4 in. (162.56 cm) (R); 09:26 BP 134 / 72; Pulse 89; Resp 15; Temp 98.1(O); Pulse Ox 93% on R/A; mh5 10:20 BP 118 / 80; Pulse 66; Resp 16 S; Pulse Ox 94% on R/A; jd3 11:21 BP 123 / 71; Pulse 65; Resp 16 S; Pulse Ox 95% on R/A; jd3 08:18 Body Mass Index 35.19 (92.99 kg, 162.56 cm) aa5 ED Course: 07:56 Patient arrived in ED. as 08:23 Arm band placed on. aa5 08:26 Triage completed. aa5 08:32 Sung Stein MD is Attending Physician. kdr 08:38 Vin Lizarraga, BILLY is Primary Nurse. jd3 08:49 XRAY Chest (1 view) In Process Unspecified. EDMS 09:16 Patient has correct armband on for positive identification. Placed in gown. Bed in low mh5 position. Call light in reach. Side rails up X 1. Warm blanket given. night monitor on. Pulse ox on. NIBP on. 09:19 EKG done, by ED staff, reviewed by Sung Stein MD. 5 09:30 Inserted saline lock: 20 gauge in right antecubital area, using aseptic technique. jd3 Blood collected. 11:21 No provider procedures requiring assistance completed. IV discontinued, intact, jd3 bleeding controlled, No redness/swelling at site. Pressure dressing applied. Administered Medications: 09:45 Drug: Lopressor 5 mg Route: IVP; Site: right antecubital; jd3 10:45 Follow up: Response: No adverse reaction jd3 Outcome: 10:58 Discharge ordered by . kdr 11:25 Discharged to home ambulatory, with family. jd3 11:25 Condition: stable 11:25 Discharge instructions given to patient, Instructed on discharge instructions, follow up and referral plans. medication usage, Demonstrated understanding of instructions, follow-up care, medications, Prescriptions given X 1. 11:25 Patient left the ED. jd3 Signatures: Dispatcher [employer] EDTX Sung Stein MD MD kdr Martinez, Amelia as Calderon, Audri, RN RN [facility] Madyson Byrnes [facility] Vin Lizarraga RN RN j
[2020-11-09 22:34] VITALS: TEMP 98.1
[2020-11-09 22:37] VITALS: BP 123/71; O2SAT 95
--- NOTE | 2020-11-10 12:49 | EKG ---
Test Date: 2020-11-09 Test Time: 08:38:48 Cardiology Physician Assistant: LORE MEASUREMENT RESULTS: Intervals: Rate: 97 DC: 154 QRSD: 86 QT: 356 QTc: 452 [place]: P: 40 DC: 154 QRS: -24 T: 36 INTERPRETIVE STATEMENTS: Normal sinus rhythm Possible Anterior infarct, age undetermined Abnormal ECG Compared to ECG 10/21/2020 16:28:56 Sinus tachycardia no longer present Myocardial infarct finding still present Electronically Signed On 11-10-20 12:45:54 CDT by Joe Caraballo
== END 2020-11-09 11:25 | disposition home or self-care (01) ==
LOC: ER 07:52
DX: I11.9 Hypertensive heart disease without heart failure (principal); F41.9 Anxiety disorder, unspecified; I10 Essential (primary) hypertension; Z88.0 Allergy status to penicillin; Z91.048 Other nonmedicinal substance allergy status
CPT/HCPCS: 36415; 71045; 80048; 80076; 83735; 83880; 84484; 85025; 85610; 93005; 96374; 99285

== ENCOUNTER 2020-11-15 19:56 | Emergency (ER) | payer MEDICARE ==
--- OUTSIDE RECORDS SUMMARY | 2020-11-15 19:59 | XMS REPORT | Continuity of Care Document ---
:1945 Author Organization [facility] t Address [address] [place] [address] Care Team Providers Name Role Phone Unavailable Unavailable Unavailable Problems This patient has no known problems. Allergies, Adverse Reactions, Alerts Allergy Allergy Status Severity Reaction(s) Onset Inactive Treating Comm ents Source Name Type Date Date Clinician PCN Adverse Active Info Not [facility] Reaction Available [facility] Iodine Adverse Active Info Not [facility] Reaction Available [facility] Aspirin Adverse Active jd [facility] Reaction [facility] Medications Ordered Filled Start Stop Current Ordering Indication Dosage Frequency Signature Comments Components Source Medication Medication Date Date Medication? Clinician (SIG) Name Name Tobramycin Tobramycin 0 Yes Na Unger [address] [facility] -17 [facility] Bactrim DS Bactrim DS 2020- No Na Unger [address] [facility] 7 07-16 [facility]00 [facility]ics Flonase Flonase Yes Na Unger [address] [facility] Allergy Allergy 9-17 to each [facility] - Relief Relief 00:00: nostril [facility] Fish Oil Fish Oil Yes Na Unger [address] [facility] Lisinopril Lisinopril Yes Na [...] St Relief Relief [facility] PredniSONE PredniSONE Yes Na Unger [address] [facility] Eliquis 5 Eliquis 5 Yes Na Unger one [facility] mg mg [facility] Procedures This patient has no known procedures. Encounters Start End Encounter Admission Attending Care Care Encounter Source Date/Time Date/Time Type Type Clinicians Facility Department ID 2020-11-13 2020-11-13 Outpatient [facility] [id number] [facility] 2020-11-10 2020-11-10 Outpatient [facility] [id number] [facility] 2020-10-25 2020-10-25 Outpatient [facility] [id number] [facility] 2020-10-23 2020-10-23 Outpatient [facility] [id number] [facility] 2020-10-09 2020-10-09 Out[facility] [id number] [facility] 2020-09-25 2020-09-25 [facility] [id number] [facility] 2020-08-29 2020-08-29 [facility] [id number] [facility] 2020-08-24 2020-08-24 [facility] [id number] [facility] 2020-08-21 2020-08-21 [facility] [id number] [facility] 2020-07-27 2020-07-27 [facility] [id number] [facility] 2020-07-26 2020-07-26 [facility] [id number] [facility] 2020-07-19 2020-07-19 [facility] [id number] [facility] 2020-07-04 2020-07-04 [facility] [id number] [facility] 2020-07-04 2020-07-04 [facility] [id number] [facility] 2020-07-03 2020-07-03 [facility] [id number] [facility] 2020-06-16 2020-06-16 [facility] [id number] [facility] 2020-06-14 2020-06-14 [facility] [id number] [facility] 2020-06-13 2020-06-13 [facility] [id number] [facility] 2020-05-23 2020-05-23 [facility] [id number] [facility] 2020-05-17 2020-05-17 Out[facility] [id number] [facility] 2020-05-04 2020-05-04 [facility] [id number] [facility] 2020-05-03 2020-05-03 Out[facility] [id number] [facility] 2020-04-28 2020-04-28 [facility] [id number] [facility] 2020-04-20 2020-04-20 [facility] [id number] [facility] 16[facility]42:00 16:42:00 [place] [employer] [facility] 2020-04-06 2020-04-06 [facility] [id number] [facility] 11:00:00 11:00:00 [place] [employer] [facility] Medicine l Medicine Outpati ent Clinics 2020-03-27 2020-03-27 [facility] [id number] [facility] 08:22:00 08:22:00 [place] [employer] [facility] Medicine l Medicine Outpati ent Clinics 2020-03-23 2020-03-23 [facility] [id number] 08:36:00 08:36:00 [place] [employer] [facility] Medicine l Medicine Outpati ent Clinics 2020-03-19 2020-03-19 [facility] [id number] [facility] 13:34:00 13:34:00 t [place] [employer] [facility] Medicine l Medicine Outpati ent Clinics 2020-03-17 2020-03-17 [facility] [id number] 11:00:00 11:00:00 t [employer] [facility] Medicine l Medicine Outpati ent Clinics 2020-03-17 2020-03-17 [facility] [id number] [facility] 08:42:00 08:42:00 [place] [employer] [place] [facility] - Drive [facility] Clinics 2020-02-10 2020-02-10 [facility] [id number] [facility] 13:00:00 13:00:00 [place] [employer] - Drive [facility] Medicine Outpati ent Clinics 2020-02-10 2020-02-10 [facility] [id number] 08:33:00 08:33:00 t [place] [employer] s - Drive [facility] Medicine Outpati ent Clinics 2019-10-29 2019-10-29 [facility] [id number] [facility] 15:20:00 15:20:00 t [facility] [employer] [facility] - Road [facility] Medicine Outpati ent Clinics 2019-10-29 2019-10-29 [facility] [id number] 14:29:00 14:29:00 t [place] [employer] s - Drive [facility] Medicine Outpati ent Clinics 2019-10-13 2019-10-13 [facility] [id number] 13:20:00 13:20:00 t [place] [employer] [facility] - Drive [facility] Out[facility] Clinics 2019-10-13 2019-10-13 [facility] [id number] 08:37:00 08:37:00 t [place] [employer] - Drive [facility] Medicine Outpati ent Clinics 2019-08-09 2019-08-09 [facility] [id number] 09:12:00 09:12:00 t [place] [employer] - Drive [facility] Medicine Outpati ent Clinics 2019-06-28 2019-06-28 [facility] [id number] 08:40:00 08:40:00 t [place] [employer] - Drive [facility] Medicine Outpati ent Clinics 2019-06-21 2019-06-21 [facility] [id number] [facility] 08:40:00 08:40:00 [place] [address] [address] [place] - Drive [facility] Medicine l Medicine Outpati ent Clinics 2019-04-16 2019-04-16 [facility] [id number] 08:00:00 08:00:00 [place] [address] [place] [address] [place] - Drive [facility] Medicine l Medicine Outpati ent Clinics 2019-03-26 2019-03-26 [facility] [id number] [facility] 08:00:00 08:00:00 [place] [address] [address] [place] - Drive [facility] Medicine l Medicine Outpati ent Clinics 2019-03-08 2019-03-08 [facility] [id number] [facility] 12:31:00 12:31:00 [address] [place] [address] [place] [address] [place] - Drive [facility] Out[facility] Clinics 2019-03-03 2019-03-03 [facility] [id number] 09:38:00 09:38:00 [address] [place] [address] [address] [place] - Drive [facility] Out[facility] Clinics 2019-02-16 2019-02-16 [facility] [id number] 13:00:00 13:00:00 [place] [employer] [place] - Drive [facility] Out[facility] Clinics 2019-02-10 2019-02-10 Outpatient [facility] [address] [place] [id number] 12:15:00 12:15:00 [facility] 2018-11-02 2018-11-02 [facility] [id number] [facility] 15:26:00 15:26:00 [place] [address] [place] [address] [place] - Drive [facility] Medicine l Medicine Outpati ent Clinics 2018-10-15 2018-10-15 [facility] [id number] 09:00:00 09:00:00 [place] [address] [place] [address] [place] - Drive [facility] Medicine l Medicine Outpati ent Clinics 2018-10-06 2018-10-06 [facility] [id number] 09:17:00 09:17:00 [place] [address] [place] [address] [place] - Drive [facility] Medicine l Medicine Outpati ent Clinics 2018-10-06 2018-10-06 [facility] [id number] [facility] 09:09:00 09:09:00 t [place] [employer] [facility] Medicine Outpati ent Clinics 2018-08-10 2018-08-10 [facility] [id number] 15:04:00 15:04:00 [place] [employer] [facility] Medicine Outpati ent Clinics 2018-07-17 2018-07-17 [facility] [id number] 11:15:00 11:15:00 t [place] [employer] [facility] Medicine Outpati ent Clinics 2018-04-20 2018-04-20 [facility] [id number] 14:45:00 14:45:00 t [employer] [facility] Medicine Outpati ent Clinics 2018-02-20 2018-02-20 [facility] [id number] [facility] 10:30:00 10:30:00 t [place] [employer] [facility] Outpati ent Clinics Results This patient has no known results.
[2020-11-15 22:37] LABS: Absolute Lymphocytes (CBC) 1.9 K/uL (0.7-4.9); Basophils % 0.9 % (0-1.3); Hematocrit 40.7 % (36.0-45.0); Lymphocytes % 27.3 % (15.3-44.8); MPV 11.4 fL (7.6-11.3)
[2020-11-15 22:52] LABS: BUN Blood Urea Nitrogen 18 mg/dL (7-18); Bicarbonate 30 mmol/L (21-32); Glucose Level 95 mg/dL (74-106); NT PRO-BNP 93 pg/mL (<450); Potassium 3.9 mmol/L (3.5-5.1); Sodium Level 140 mmol/L (136-145); Troponin (Emerg Dept Use Only) < 0.02 ng/mL (0.0-0.045)
--- NOTE | 2020-11-15 23:25 | ER ---
Nurse's Notes [facility] Name: Padmaja Easley Age: 75 yrs Sex: Female : 1945 Arrival Date: 11/15/2020 Time: 19:58 Bed 25 Private MD: Diagnosis: Hypertension;Chest pain, unspecified Presentation: 11/15 20:14 Chief complaint: Patient states: Last week I started having high blood pressure and was bb told to up my lisinopril dosage. My blood pressure came down but today I woke up with chest pressure but not pain. When my blood pressure goes back down the pressure goes away. But I am having some back pain but I have been lifting boxes. Coronavirus screen: Client denies travel out of the [place] in the last 14 days. Ebola Screen: Patient negative for fever greater than or equal to 101.5 degrees Fahrenheit, and additional compatible Ebola Virus Disease symptoms Patient denies exposure to infectious person. Patient denies travel to an Ebola-affected area in the 21 days before illness onset. Initial Sepsis Screen: Does the patient meet any 2 criteria? HR > 90 bpm. Does the patient have a suspected source of infection? No. Patient's initial sepsis screen is negative. Risk Assessment: Do you want to hurt yourself or someone else? Patient reports no desire to harm self or others. Onset of symptoms was November 06, 2020. 20:14 Method Of Arrival: Ambulatory bb 20:14 Acuity: KIRSTEN 3 bb Historical: - Allergies: 20:21 Iodine; bb 20:21 PENICILLINS; bb - Home Meds: 20:21 lisinopril 10 mg Oral tab 1 tab once daily [Active]; Ativan Oral [Active]; bb - PMHx: 20:21 Hypertension; bb - PSHx: 20:21 Hysterectomy; Cholecystectomy; Appendectomy; cataract; bb - Immunization history:: Adult Immunizations up to date. - Social history:: Smoking status: Patient denies any tobacco usage or history of. Patient/guardian denies using alcohol. - Family history:: not pertinent. - Hospitalizations: : The patient was recently seen at [facility]. Screenin:21 Abuse screen: Denies threats or abuse. Nutritional screening: No deficits noted. bb Tuberculosis screening: No symptoms or risk factors identified. Fall Risk None identified. Assessment: 22:21 General: Appears in no apparent distress. Behavior is calm, cooperative. Pain: bb Complains of pain in chest. Neuro: Level of Consciousness is awake, alert, obeys commands, Oriented to person, place, time, situation. Cardiovascular: Heart tones present. Respiratory: Respiratory effort is even, unlabored, Respiratory pattern is regular. GI: No signs and/or symptoms were reported involving the gastrointestinal system. Derm: Skin is pink, warm \T\ dry. Musculoskeletal: Circulation, motion, and sensation intact. 23:41 Reassessment: Patient is alert, oriented x 3, equal unlabored respirations, skin bb warm/dry/pink. pt verbalized understanding of and agrees to plan of care discharge instructions given pt ambulated with steady gait to exit. Vital Signs: 20:14 BP 146 / 97; Pulse 103; Resp 18; Temp 98.2; Pulse Ox 99% on R/A; Weight 92.99 kg; bb Height 5 ft. 4 in. (162.56 cm); Pain 0/10; 22:29 BP 135 / 83; Pulse 86; Resp 12 S; Pulse Ox 94% on R/A; bb 23:15 BP 130 / 84; Pulse 86; Pulse Ox 100% on R/A; jp3 20:14 Body Mass Index 35.19 (92.99 kg, 162.56 cm) bb ED Course: 19:58 Patient arrived in ED. cf2 20:20 Triage completed. bb 20:22 Arm band placed on right wrist. bb 21:36 James Frausto MD is Attending Physician. rn 21:40 EKG done, by ED staff, reviewed by James Frausto MD. jp3 22:21 Patient has correct armband on for positive identification. Bed in low position. Call bb light in reach. 22:29 Lisa Welsh, BILLY is Primary Nurse. bb 22:30 Initial lab(s) drawn, by mi, sent to lab. Inserted saline lock: 20 gauge in right jp3 antecubital area, using aseptic technique. Blood collected. Patient maintains SpO2 saturation greater than 95% on room air. 22:46 XRAY Chest (1 view) In Process Unspecified. EDMS 23:34 Removal of peripheral IV. Catheter intact, dressing applied. jp3 23:42 No provider procedures requiring assistance completed. bb 23:42 IV discontinued, by health information technologist. bb Administered Medications: No medications were administered Outcome: 23:24 Discharge ordered by . billy 23:42 Discharged to home ambulatory. cosme 23:42 Condition: stable 23:42 Discharge instructions given to patient, Instructed on discharge instructions, follow up and referral plans. Demonstrated understanding of instructions, follow-up care. 23:43 Patient left the ED. cosme Signatures: Dispatcher [employer] EDLisa Stewart RN RN bb Nieto, Roman, MD MD rn Pisarski, Jacob 3 Virgil Collado 2
--- NOTE | 2020-11-15 23:25 | EDPHYS ---
Physician Documentation [facility] Name: Padmaja Easley Age: 75 yrs Sex: Female : 1945 Arrival Date: 11/15/2020 Time: 19:58 Bed 25 Private MD: ED Physician James Frausto HPI: 11/15 22:26 This 75 yrs old Female presents to ER via Ambulatory with complaints of High rn Blood Pressure, LEFT SIDE CHEST PAIN, Back Pain. 22:26 The patient has elevated blood pressure and discovered this at home. Onset: The rn symptoms/episode began/occurred 2 day(s) ago. Modifying factors: The symptoms are aggravated by nothing, The symptoms are alleviated by prescription meds. Associated signs and symptoms: Pertinent positives: chest pain, Pertinent negatives: headache, lightheadedness, nausea, visual changes, vomiting, weakness. Severity of symptoms: At its worst the blood pressure was moderate, in the emergency department the blood pressure is improved. The patient has experienced similar episodes in the past. The patient has been recently seen by a physician:. Reports admitted to hospital 3 weeks ago for chest pain, told was 2/2 hypertension, given prescription for lisinopril, taking, reports intermittent chest pain for 2 days, assoc with high blood pressure, takes extra lisinopril per instructions by Dr. Caraballo, and helps both BP and chest pain. No fever/sob/cough/vomiting/focal neuro complaints/abd pain. Told by Dr. Caraballo needs ECHo, scheduled for later this month. . Historical: - Allergies: 20:21 Iodine; bb 20:21 PENICILLINS; bb - Home Meds: 20:21 lisinopril 10 mg Oral tab 1 tab once daily [Active]; Ativan Oral [Active]; bb - PMHx: 20:21 Hypertension; bb - PSHx: 20:21 Hysterectomy; Cholecystectomy; Appendectomy; cataract; bb - Immunization history:: Adult Immunizations up to date. - Social history:: Smoking status: Patient denies any tobacco usage or history of. Patient/guardian denies using alcohol. - Family history:: not pertinent. - Hospitalizations: : The patient was recently seen at [facility]. ROS: 22:26 Constitutional: Negative for fever, chills, and weight loss, Eyes: Negative for injury, rn pain, redness, and discharge, Neck: Negative for injury, pain, and swelling, Cardiovascular: Negative for palpitations, and edema, Respiratory: Negative for shortness of breath, cough, wheezing, and pleuritic chest pain, Abdomen/GI: Negative for abdominal pain, nausea, vomiting, diarrhea, and constipation, Back: Negative for injury and pain, : Negative for injury, bleeding, discharge, and swelling, MS/Extremity: Negative for injury and deformity, Skin: Negative for injury, rash, and discoloration, Neuro: Negative for headache, weakness, numbness, tingling, and seizure. Exam: 22:26 Constitutional: This is a well developed, well nourished patient who is awake, alert, rn and in no acute distress. Head/Face: Normocephalic, atraumatic. Eyes: Periorbital areas with no swelling, redness, or edema. Cardiovascular: Regular rate and rhythm. No pulse deficits. Respiratory: No increased work of breathing, no retractions or nasal flaring. Abdomen/GI: soft, non-tender Skin: Warm, dry with normal turgor. Normal color with no rashes, no lesions, and no evidence of cellulitis. MS/ Extremity: Pulses equal, no cyanosis. Neurovascular intact. Full, normal range of motion. Equal circumference. Neuro: Awake and alert, GCS 15, oriented to person, place, time, and situation. Cranial nerves II-XII grossly intact. Motor strength 5/5 in all extremities. Sensory grossly intact. Cerebellar exam normal. Normal gait. Vital Signs: 20:14 BP 146 / 97; Pulse 103; Resp 18; Temp 98.2; Pulse Ox 99% on R/A; Weight 92.99 kg; bb Height 5 ft. 4 in. (162.56 cm); Pain 0/10; 22:29 BP 135 / 83; Pulse 86; Resp 12 S; Pulse Ox 94% on R/A; bb 23:15 BP 130 / 84; Pulse 86; Pulse Ox 100% on R/A; jp3 20:14 Body Mass Index 35.19 (92.99 kg, 162.56 cm) bb MDM: 21:36 Patient medically screened. rn 23:22 Differential diagnosis: Malignant HTN, anxiety, angina, CAD. Data reviewed: vital rn signs, nurses notes, lab test result(s), EKG, radiologic studies, plain films, and as a result, I will discharge patient. Counseling: I had a detailed discussion with the patient and/or guardian regarding: the historical points, exam findings, and any diagnostic results supporting the discharge/admit diagnosis, lab results, radiology results, the need for outpatient follow up, to return to the emergency department if symptoms worsen or persist or if there are any questions or concerns that arise at home. Response to treatment: the patient's symptoms have markedly improved after treatment, and as a result, I will discharge patient. Special discussion: Based on the patient's history, exam, and Dx evaluation, there is no indication for emergent intervention or inpatient Tx. It is understood by the patient/guardian that if the Sx's persist or worsen they need to return immediately for re-evaluation. I discussed with the patient/guardian in detail that at this point there is no indication for admission to the hospital. It is understood, however, that if the symptoms persist or worsen the patient needs to return immediately for re-evaluation. Based on the history and exam findings, there is no indication for further emergent testing or inpatient evaluation. I discussed with the patient/guardian the need to see the transit department clerk for further evaluation of the symptoms. ED course: Recent admission with neg cardiac w/u, is to see Dr. Caraballo for outpt ECHO, neg trop here, no ischemia on ECG, stable vitals, cleared this week by Dr. Ortiz with normal PFTs, will dc home with cardiology f/u and return precautions. To take bp meds as prescribed and recommend by Dr. caraballo, who recently told her to increase lisinopril.. 23:30 ED course: Pt also clarified that tonya is only taking lisinopril as needed when she rn checks her BP and is elevated. . 11/15 21:54 Order name: Basic Metabolic Panel rn 11/15 21:54 Order name: CBC with Diff rn 11/15 21:54 Order name: NT PRO-BNP rn 11/15 21:54 Order name: Troponin (emerg Dept Use Only) rn 11/15 21:54 Order name: Basic Metabolic Panel; Complete Time: 22:54 EDMS 11/15 21:54 Order name: NT PRO-BNP; Complete Time: 22:54 EDMS 11/15 21:54 Order name: XRAY Chest (1 view) rn 11/15 21:54 Order name: EKG; Complete Time: 21:55 rn 11/15 21:54 Order name: Cardiac monitoring; Complete Time: 22:22 rn 11/15 21:54 Order name: EKG - Nurse/Tech; Complete Time: 22:22 rn 11/15 21:54 Order name: IV Saline Lock; Complete Time: 22:32 rn 11/15 21:54 Order name: Labs collected and sent; Complete Time: 22:32 rn 11/15 21:54 Order name: Troponin (Emerg Dept Use Only); Complete Time: 22:54 EDMS 11/15 21:55 Order name: CBC with Automated Diff; Complete Time: 22:54 EDMS 11/15 21:54 Order name: O2 Per Protocol; Complete Time: 22: rn 11/15 21:54 Order name: O2 Sat Monitoring; Complete Time: 22:22 rn Administered Medications: No medications were administered Disposition: 11/15/20 23:24 Discharged to Home. Impression: Hypertension, Chest pain, unspecified. - Condition is Stable. - Discharge Instructions: Nonspecific Chest Pain, Hypertension. - Medication Reconciliation Form, Thank You Letter, Antibiotic Education, Prescription Opioid Use form. - Follow up: Private Physician; When: As needed; Reason: Recheck today's complaints, Re-evaluation by your physician. - Problem is new. - Symptoms have improved. Signatures: Dispatcher [employer] Lisa Veronica RN RN bb James Frausto MD MD design intern: (The following items were deleted from the chart) 23:43 23:24 11/15/2020 23:24 Discharged to Home. Impression: Hypertension; Chest pain, bb unspecified. Condition is Stable. Forms are Medication Reconciliation Form, Thank You Letter, Antibiotic Education, Prescription Opioid Use. Follow up: Private Physician; When: As needed; Reason: Recheck today's complaints, Re-evaluation by your physician. Problem is new. Symptoms have improved. rn
[2020-11-15 23:49] VITALS: TEMP 98.2
[2020-11-15 23:52] VITALS: BP 130/84; O2SAT 100
--- NOTE | 2020-11-16 07:35 | EKG ---
Test Date: 2020-11-15 Test Time: 20:29:41 Gaming Department Head: TL MEASUREMENT RESULTS: Intervals: Rate: 99 NJ: 154 QRSD: 84 QT: 354 QTc: 454 [place]: P: 30 NJ: 154 QRS: -22 T: 3 INTERPRETIVE STATEMENTS: Normal sinus rhythm Anterolateral infarct, age undetermined Abnormal ECG Compared to ECG 11/09/2020 08:38:48 No significant changes Electronically Signed On 11-16-20 07:34:31 CDT by Joe Caraballo
--- NOTE | 2020-11-16 14:03 | RAD REPORT ---
EXAM DESCRIPTION: Chest Radiography COMPARISON: Chest radiograph November 09, 2020 CLINICAL HISTORY: [facility] [place] MAIN CHEST PAIN FINDINGS: A single AP view of the chest demonstrates a normal cardiomediastinal silhouette. No pneumothorax or significant pleural effusion. No consolidation or pulmonary edema. Osseous structures are intact. IMPRESSION: No acute chest process. Electronically signed by: Sebastian Souza MD 11/15/2020 11:06 PM CDT Due to temporary technical issues with the PACS/Fluency reporting system, reports are being signed by the in house radiologists without review as a courtesy to insure prompt reporting. The interpreting radiologist is fully responsible for the content of the report.
== END 2020-11-15 23:43 | disposition home or self-care (01) ==
LOC: ER 19:56
DX: I10 Essential (primary) hypertension (principal); Z88.0 Allergy status to penicillin; Z91.048 Other nonmedicinal substance allergy status
CPT/HCPCS: 36415; 71045; 80048; 83880; 84484; 85025; 93005; 99284